=== PATIENT | male | born 1950 | race Caucasian/White ===

== ENCOUNTER 2024-08-29 11:17 | Inpatient (IN) ==
--- NOTE | 2024-08-29 11:26 | Emergency Department Note ---
Impression & Plan Atrial flutter with rapid ventricular response, Chest pain ED Provider Note NAME: SAILAJA LAWTON AGE: 74 SEX: M : 1950 ARRIVES VIA: Ambulance INFORMANT: Patient ED PROVIDER(S): Hi Koroma DO CHIEF COMPLAINT: Chest pain HPI: Patient is a 74-year-old male who presents to the ER for chest pain. He notes he woke up this morning and just did not feel right. He felt a discomfort in his epigastric substernal region which felt like last time he needed to get a cardiac stent. He notes that he did fail a stress test several months ago. He went to his PCPs office and he was found to have an elevated heart rate and consequently was referred in. He denies any headache or change in vision. He does admit to some lightheadedness. No chest pressure pain currently. No dysuria, urgency, or frequency. No other exacerbating or remitting factors. ADDITIONAL HISTORY OBTAINED: Per HPI Chronic Medical/Social Conditions Affecting Care: Per HPI PAST MEDICAL HISTORY:See Below PAST SURGICAL HISTORY:See Below FAMILY HISTORY:See Below SOCIAL HISTORY:See Below HOME MEDICATIONS:See Below ALLERGIES:See Below VITALS:See Below PHYSICAL EXAMINATION: GENERAL: Sitting up in bed, alert, well appearing, well nourished, no distress, non-toxic EYE EXAM: normal conjunctiva. PERRL and EOM's grossly intact. OROPHARYNX: mucous membranes are moist NECK: supple, no nuchal rigidity, no adenopathy, non-tender LUNGS: Clear to auscultation. Normal chest wall mechanics HEART: Tachycardic, S1 normal and S2 normal ABDOMEN: abdomen soft, non-tender, normo-active bowel sounds, no masses, no rebound or guarding. UPPER EXTREMITIES: upper extremities are grossly normal. LOWER EXTREMITIES: Calves are equal bilateral NEURO EXAM: Normal sensorium, cranial nerves II-XII grossly intact, normal speech, no gross weakness of arms, no gross weakness of legs. MEDICAL DECISION MAKING: Patient is a 74-year-old male who presents ER for the above-stated complaint. IV was established and blood work was obtained. Labs show no significant leukocytosis or anemia. BMP along with LFTs bilirubin lipase is unremarkable. Initial troponin was negative. Patient was initially given 6 mg of IV adenosine as EKG. Be consistent with an SVT. It broke into what appeared to be a flutter after the adenosine and following this patient was given IV metoprolol for an elevated heart rate in the 150s. Heart rate trend down to the 100. Patient was given IV fluids. Discussed case with the hospitalist for further evaluation management treatment. Consults/Care Managements Discussions: Per [facility] Triage Nursing notes reviewed. Limited review of prior medical records performed Vital Signs: reviewed and remarkable for tachycardic Differential diagnosis: Cardiac ischemia, aortic dissection, pulmonary embolism, pneumothorax, pneumonia, pericarditis, myocarditis, esophageal rupture, GERD, cholecystitis, pancreatitis, musculoskeletal, as well as other pathologies. ER treatment provided: See below Diagnostics interpreted by me include EKG and cardiac monitoring as listed below: -Cardiac Monitoring: An order was placed for continuous cardiac monitoring. The monitor shows a rate of 155 with atrial tachycardia rhythm. -ECG: SVT rate of 155 Normal axis No PVCs QTc 488 EKG #2 A-fib rate of 107 Normal axis No PVCs QTc 427 -Laboratory studies:Interpreted by me as stated above in MDM and shown below. Imaging studies: Xrays: As interpreted by me: Portable AP upright 1 view of the chest shows no focal M-Trate CTs show: None Procedures: None Critical Care: I have personally spent 35 minutes of critical care time in the direct management of this patient. This includes bedside care, interpretation of diagnostic studies, and testing, discussion with consultants, patient, and family members, and other required patient management activities. This 35 minutes is in excess of all separately billable procedures. Past Med/Surg History Problem List (Updated 08/29/24 @ 17:25 by Hi Koroma DO) Chest pain (Acute) Atrial flutter with rapid ventricular response (Acute) Social History Smoking Status: Never smoker Hx Alcohol Use: Yes Hx Substance Use: No Preferred Language: Syriac Communication Ability: Effective Vacation Planner Required: No Beliefs That Will Affect Care: Baptist Baptist Beliefs: Scientologist Current Living Situation: Spouse Other Information That Helps Us Care for You: No Feels Safe at Home: Yes Safety Concerns: Feels Safe At This Time Assistive Devices: Glasses Allergies Allergies Allergy/AdvReac Type Severity Reaction Status Date / Time Penicillins Allergy Unknown rash Unverified 08/29/24 12:46 SYNTHETIC PENICILLIN Allergy Unknown rash Uncoded 08/29/24 12:46 Home Meds Home Medications Medication Instructions Recorded Confirmed amlodipine 5 mg tablet 5 mg PO BID 08/29/24 08/29/24 aspirin 81 mg chewable tablet 81 mg PO DIRECTED 08/29/24 08/29/24 atorvastatin 10 mg tablet 10 mg PO DAILY 08/29/24 08/29/24 coenzyme Q10 30 mg capsule 30 mg PO DAILY 08/29/24 08/29/24 doxazosin 2 mg tablet 2 mg PO QAM 08/29/24 08/29/24 ezetimibe 10 mg tablet 10 mg PO HS 08/29/24 08/29/24 losartan 25 mg tablet 25 mg PO DAILY 08/29/24 08/29/24 multivitamin 1 tab PO QAM 08/29/24 08/29/24 Results & Data (ED) Vital Signs Vital Signs - 24 hr 08/29/24 11:30 08/29/24 11:43 08/29/24 11:45 Temperature 36.7 C Temperature Source Oral Pulse Rate 155 H 154 H 155 H Pulse Rate [Apical] Pulse Rate from SpO2 Sensor 154 H Pulse Rhythm Regular Respiratory Rate 18 24 Blood Pressure 131/102 H Blood Pressure [Right Arm] Blood Pressure Mean 111 Blood Pressure Mean [Right Arm] Pulse Oximetry 96 97 Oxygen Delivery Method Room Air Room Air Sepsis New/Unexplained Change in Mental Status No Sepsis Action Taken by Nursing No Action Required 08/29/24 12:05 08/29/24 12:05 08/29/24 12:18 Temperature Temperature Source Pulse Rate 152 H Pulse Rate [Apical] Pulse Rate from SpO2 Sensor 152 H Pulse Rhythm Respiratory Rate 11 L Blood Pressure Blood Pressure [Right Arm] Blood Pressure Mean Blood Pressure Mean [Right Arm] Pulse Oximetry 96 Oxygen Delivery Method Room Air Room Air Sepsis New/Unexplained Change in Mental Status Sepsis Action Taken by Nursing 08/29/24 12:20 08/29/24 12:25 08/29/24 12:26 Temperature Temperature Source Pulse Rate 155 H Pulse Rate [Apical] 102 H Pulse Rate from SpO2 Sensor Pulse Rhythm Respiratory Rate 15 Blood Pressure 132/92 118/76 Blood Pressure [Right Arm] 118/76 Blood Pressure Mean 82 Blood Pressure Mean [Right Arm] 90 Pulse Oximetry 94 Oxygen Delivery Method Room Air Sepsis New/Unexplained Change in Mental Status Sepsis Action Taken by Nursing 08/29/24 12:30 08/29/24 12:32 08/29/24 12:33 Temperature Temperature Source Pulse Rate 109 H 104 H Pulse Rate [Apical] Pulse Rate from SpO2 Sensor 53 L Pulse Rhythm Respiratory Rate 13 Blood Pressure 127/70 Blood Pressure [Right Arm] Blood Pressure Mean 95 Blood Pressure Mean [Right Arm] Pulse Oximetry 96 Oxygen Delivery Method Sepsis New/Unexplained Change in Mental Status Sepsis Action Taken by Nursing 08/29/24 12:42 08/29/24 12:42 08/29/24 12:54 Temperature Temperature Source Pulse Rate 79 79 79 Pulse Rate [Apical] Pulse Rate from SpO2 Sensor 80 75 Pulse Rhythm Respiratory Rate 18 22 Blood Pressure Blood Pressure [Right Arm] Blood Pressure Mean Blood Pressure Mean [Right Arm] Pulse Oximetry 95 96 Oxygen Delivery Method Sepsis New/Unexplained Change in Mental Status Sepsis Action Taken by Nursing 08/29/24 12:57 08/29/24 13:00 08/29/24 13:15 Temperature Temperature Source Pulse Rate 79 Pulse Rate [Apical] Pulse Rate from SpO2 Sensor 77 65 Pulse Rhythm Respiratory Rate 23 Blood Pressure 141/87 H Blood Pressure [Right Arm] Blood Pressure Mean 100 Blood Pressure Mean [Right Arm] Pulse Oximetry 96 95 Oxygen Delivery Method Sepsis New/Unexplained Change in Mental Status Sepsis Action Taken by Nursing 08/29/24 13:26 08/29/24 13:31 Temperature Temperature Source Pulse Rate Pulse Rate [Apical] Pulse Rate from SpO2 Sensor 74 Pulse Rhythm Respiratory Rate Blood Pressure 118/89 Blood Pressure [Right Arm] Blood Pressure Mean 102 Blood Pressure Mean [Right Arm] Pulse Oximetry 96 Oxygen Delivery Method Sepsis New/Unexplained Change in Mental Status Sepsis Action Taken by Nursing Laboratory Data 08/29/24 11:40 08/29/24 11:40 Lab Results 08/29/24 Range/Units 11:40 WBC 6.16 (4.8-10.8) K/ul RBC 4.41 L (4.70-6.10) M/uL Hgb 14.0 (14.0-18.0) g/dl Hct 41.8 L (42.0-52.0) % MCV 94.8 (80.0-100.0) fL MCH 31.7 (25.0-34.0) pg MCHC 33.5 (32.0-36.0) g/dL RDW Std Deviation 45.8 (36.4-46.3) fL RDW Coeff of Dalia 13.1 (11.5-14.5) % Plt Count 174 (130-400) K/uL MPV 9.6 (9.4-12.4) fL Immature Gran % (Auto) 0.2 % Neut % (Auto) 66.2 % Lymph % (Auto) 18.7 % Rankin % (Auto) 9.9 % Eos % (Auto) 4.4 % Baso % (Auto) 0.6 % Neut # (Auto) 4.08 (1.40-6.50) K/uL Lymph # (Auto) 1.15 L (1.20-3.40) K/uL Rankin # (Auto) 0.61 H (0.11-0.59) K/uL Eos # (Auto) 0.27 (0.00-0.50) K/uL Baso # (Auto) 0.04 (0.00-0.20) K/uL Immature Gran # (Auto) 0.01 (0.01-0.20) K/uL Sodium 140 (136-145) mmol/L Potassium 4.7 (3.5-5.1) mmol/L Chloride 106 (98-107) mmol/L Carbon Dioxide 30 (21-32) mmol/L Anion Gap 4 (3-11) BUN 23 (6-23) mg/dl Creatinine 1.29 (0.6-1.4) mg/dl Est Cr Clr Drug Dosing 58.0 ml/min eGFR 58.18 BUN/Creatinine Ratio 17.8 (10-20) Glucose 103 H (70-99(Fasting)) mg/dl Calcium 8.7 (8.6-10.3) mg/dl Total Bilirubin 0.7 (0.2-1.0) mg/dl AST 23 (13-39) U/L ALT 25 (7-52) U/L Alkaline Phosphatase 65 (34-104) U/L Troponin I High Sens 15.3 (0-20) pg/ml Total Protein 6.6 (6.0-8.3) gm/dl Albumin 4.0 (3.4-5.0) gm/dl Globulin 2.6 (2.5-4.0) gm/dl Albumin/Globulin Ratio 1.5 (0.9-2) Lipase 17 (11-82) U/L Administered Medications Heparin Sodium/Dextrose (Heparin Sodium/Dextrose) 25,000 units in 500 mls @ 20 mls/hr IV .Q24H [place]; Protocol Stop: 09/28/24 13:44 Last Admin: 08/29/24 15:06 Dose: 1,000 units/hr, 20 mls/hr Documented By: PALLAVI Co-signed By: LI Metoprolol Tartrate (Metoprolol Tartrate 1 Mg/Ml Vial) 5 mg IV Q5M PRN PRN Reason: Tachycardia Stop: 09/28/24 12:11 Last Admin: 08/29/24 12:20 Dose: 5 mg Documented By: PALLAVI Metoprolol Tartrate (Metoprolol Tartrate 25 Mg Tab) 12.5 mg PO Q6H [place] Stop: 09/28/24 13:29 Last Admin: 08/29/24 14:01 Dose: 12.5 mg Documented By: PALLAVI Discontinued Medications Adenosine (Adenosine Iv Soln 3 Mg/Ml 2 Ml Vial) Confirm Administered Dose 6 mg IV .STK-MED ONE Stop: 08/29/24 11:48 Last Admin: 08/29/24 12:06 Dose: 6 mg Documented By: PALLAVI Aspirin (Aspirin Chew 324 Mg) 324 mg PO NOW STA Stop: 08/29/24 11:27 Last Admin: 08/29/24 11:34 Dose: 324 mg Documented By: PALLAVI Sodium Chloride (Nss) 1,000 mls @ 999 mls/hr IV .Q1H1M ONE Stop: 08/29/24 12:24 Last Infusion: 08/29/24 12:41 Dose: Infused Documented By: Admin: 08/29/24 11:40 Dose: 999 mls/hr Documented By: PALLAVI Imaging Data Radiologist's Impression: Chest X-Ray 08/29/24 11:24 XR chest 1V portable CLINICAL HISTORY: Chest pain, nonspecific TECHNIQUE: Single frontal radiograph of the chest was obtained. Comparison: None available at the time of this dictation. FINDINGS: No lines and tubes are seen. Cardiomegaly is noted. The aortic arch is calcified. The lungs are clear. No evidence of pleural effusion or pneumothorax. IMPRESSION: No acute chest disease. ACT 112: Negative or not required by law. Electronically signed by: Obie Small M.D. 08/29/2024 11:57 AM Discharge Plan Visit Data Chief Complaint: Cardiac Assessment Stated Complaint: CARDIAC ASSESSMENT ED Provider: Hi Koroma Discharge Problem: Atrial flutter with rapid ventricular response, Chest pain Patient Disposition: Admitted As Inpatient Discharge Instructions Interventions: ED Discharge Assessment Last Done: 08/29/24 15:21 Discharge Problem: Chest pain Qualifiers: Chest pain type: unspecified Qualified Code(s): R07.9 - Chest pain, unspecified
[2024-08-29] MEDS: ASPIRIN CHEW 324 MG PO STA (11:34)
[2024-08-29] MEDS: SODIUM CHLORIDE 0.9% 1,000 ML IV ONE (11:40)
--- NOTE | 2024-08-29 12:00 | XRay Report ---
XR chest 1V portable CLINICAL HISTORY: Chest pain, nonspecific TECHNIQUE: Single frontal radiograph of the chest was obtained. Comparison: None available at the time of this dictation. FINDINGS: No lines and tubes are seen. Cardiomegaly is noted. The aortic arch is calcified. The lungs are clear . No evidence of pleural effusion or pneumothorax. IMPRESSION: No acute chest disease. ACT 112: Negative or not required by law. Electronically signed by: Obie Small M.D. 08/29/2024 11:57 AM
[2024-08-29 12:03] LABS: Basophils # (auto) 0.04 K/uL (0.00-0.20); Basophils % (auto) 0.6 %; Eosinophils # (auto) 0.27 K/uL (0.00-0.50); Eosinophils % (auto) 4.4 %; Hematocrit (blood only) 41.8 % (42.0-52.0); Immature Granulocytes # (auto) 0.01 K/uL (0.01-0.20); Immature Granulocytes % (auto) 0.2 %; Lymphocytes # (auto) 1.15 K/uL (1.20-3.40); Lymphocytes % (auto) 18.7 %; Mean Corpuscular Hemoglobin 31.7 pg (25.0-34.0); Mean Corpuscular Hgb Conc 33.5 g/dL (32.0-36.0); Mean Corpuscular Volume 94.8 fL (80.0-100.0); Mean Platelet Volume 9.6 fL (9.4-12.4); Monocytes # (auto) 0.61 K/uL (0.11-0.59); Monocytes % (auto) 9.9 %; Neutrophils # (auto) 4.08 K/uL (1.40-6.50); Neutrophils % (auto) 66.2 %; Platelet Count 174 K/uL (130-400); RDW Coefficient of Variation 13.1 % (11.5-14.5); RDW Standard Deviation 45.8 fL (36.4-46.3); Red Blood Count 4.41 M/uL (4.70-6.10); White Blood Count 6.16 K/ul (4.8-10.8)
[2024-08-29] MEDS: ADENOSINE IV SOLN 3 MG/ML 2 ML VIAL IV ONE (12:06)
[2024-08-29] MEDS: METOPROLOL TARTRATE 1 MG/ML VIAL IV PRN (12:20)
[2024-08-29 12:23] LABS: Albumin Globulin Ratio 1.5 (0.9-2); BUN Creatinine Ratio 17.8 (10-20); Bilirubin,Total 0.7 mg/dl (0.2-1.0); Calcium 8.7 mg/dl (8.6-10.3); Globulin 2.6 gm/dl (2.5-4.0); Potassium 4.7 mmol/L (3.5-5.1); Total Protein 6.6 gm/dl (6.0-8.3)
[2024-08-29 12:27] LABS: Troponin I High Sensitivity 15.3 pg/ml (0-20)
--- NOTE | 2024-08-29 12:36 | History & Physical Report ---
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 Atrial Flutter with RVR: -Outpatient EKG noted atrial flutter with 2-1 block. Patient transported to ED via EMS from PCP's office. -Initially was in SVT upon arrival to the ED with HR in the 150s. Received 6mg IV adenosine + 5mg IV Lopressor. -HR was still fluctuating in the 70s-120s. Was subsequently found to be in atrial flutter with RVR s/p adenosine + Lopressor. -Cardiology consulted [Dr. Hudson notified via TT]. IV heparin initiated. Continue po Lopressor 12.5mg Q6H pending cardiology evaluation. -Initial trop negative. Repeat trop 23.4; will continue to trend trop Q6H x 3. Daily EKG x 2. EKG with chest pain PRN. Will check resting echo. IN in 2011 S/P LAD Stenting: -Patient follows with [facility] [Becca/Gaurav]. -Had nuclear stress testing in November 2023 which showed the old area of IN and had mild to moderate reversible ischemia. -Cardiology was initially considering a cardiac cath at that time but the patient was asymptomatic therefore it was not completed. -Echo from 11/2023: EF=55-59%, mildly increased concentric LV wall thickness, posterior + lateral hypokinesis, mild to moderate mitral regurgitation. Other Chronic Medical Conditions: * HLD/CAD - Continue statin, ezetimibe and ASA 81mg (ASA patient takes every other day). * CKD Stage IIIa - Cr stable, baseline Cr ~1.2-1.5 per chart review. HTN - Hold home antihypertensives for now ISO above. DVT Prophylaxis: IV heparin as per above. Code Status: FULL CODE PCP: Maia Oliva DO Disposition: Admit to PCU/Telemetry for further inpatient evaluation and management. Patient seen in collaboration with Dr. Mackenzie. Please see addendum. I spent a total of 50 minutes coordinating, documenting, and providing care for this patient excluding time spent in the performance of separately billed services. This included personally reviewing all current laboratories and imaging studies, medical reconciliation, outpatient chart review and discussion with specialists. This chart was completed in part utilizing Speech Voice Recognition Software. Grammatical errors, random word insertions, pronoun errors, and incomplete sentences are an occasional consequence of this system due to software limitations, ambient noise, and hardware issues. Any formal questions or concerns about the content, text, or information contained within the body of this dictation should be directly addressed to the provider for clarification. 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 History obtained from the patient, family at bedside and associated chart review. Patient seen at bedside in the ED with Dr. Mackenzie. Patient was seeing his PCP [Dr. Maia Oliva at [facility]] earlier today and noted complaints of shakiness plus chest pressure which both started this morning. Outpatient EKG was concerning for atrial flutter with 2-1 block, HR 159bpm. Given patient's history of CAD and prior IN in 2011 with LAD stenting, he was sent to ED via EMS for further cardiac evaluation as his symptoms were comparable to those which he experienced with his prior IN. Patient was initially found to be in SVT with HR in the 150s upon presentation to the ED. He is now s/p 6 mg IV adenosine, 324mg po aspirin, 5mg IV Lopressor and 1L NSS. Patient without any chest pressure or shakiness when we saw him in the ED. Telemetry revealed atrial flutter with fluctuating HR between the 70s to 120s throughout our conversation. Allergies Allergy/AdvReac Type Severity Reaction Status Date / Time Penicillins Allergy Unknown rash Unverified 08/29/24 12:46 SYNTHETIC PENICILLIN Allergy Unknown rash Uncoded 08/29/24 12:46 Home Medications Medication Instructions Recorded Confirmed Type amlodipine 5 mg tablet 5 mg PO BID 08/29/24 08/29/24 History aspirin 81 mg chewable tablet 81 mg PO DIRECTED 08/29/24 08/29/24 History atorvastatin 10 mg tablet 10 mg PO DAILY 08/29/24 08/29/24 History coenzyme Q10 30 mg capsule 30 mg PO DAILY 08/29/24 08/29/24 History doxazosin 2 mg tablet 2 mg PO QAM 08/29/24 08/29/24 History ezetimibe 10 mg tablet 10 mg PO HS 08/29/24 08/29/24 History losartan 25 mg tablet 25 mg PO DAILY 08/29/24 08/29/24 History multivitamin 1 tab PO QAM 08/29/24 08/29/24 History Past Med/Surg History Problem List (Updated 08/29/24 @ 17:25 by Hi Koroma DO) Chest pain (Acute) Atrial flutter with rapid ventricular response (Acute) Social History Smoking Status: Never smoker Hx Alcohol Use: Yes Hx Substance Use: No Preferred Language: Afghan Communication Ability: Effective Hemstitcher Required: No Beliefs That Will Affect Care: Christian Christian Beliefs: Methodist Current Living Situation: Spouse Other Information That Helps Us Care for You: No Feels Safe at Home: Yes Safety Concerns: Feels Safe At This Time Assistive Devices: Glasses Review of Systems 2 Review of Systems: At least ten systems reviewed and negative, except as noted in the HPI. Physical Exam Physical Exam: Please refer to Dr. Mackenzie' addendum for physical examination findings. Results & Data Results & Data Vital Signs (Past 12 Hours) Vital Signs Temp Pulse Pulse Resp BP BP Pulse Ox 08/29/24 12:32 109 H 08/29/24 12:25 102 H 15 118/76 94 08/29/24 12:20 155 H 132/92 08/29/24 12:05 08/29/24 12:05 08/29/24 11:45 155 H 24 97 08/29/24 11:43 154 H 08/29/24 11:30 36.7 C 155 H 18 131/102 H 96 O2 Del Method 08/29/24 12:32 08/29/24 12:25 Room Air 08/29/24 12:20 08/29/24 12:05 Room Air 08/29/24 12:05 Room Air 08/29/24 11:45 Room Air 08/29/24 11:43 08/29/24 11:30 Room Air Laboratory Results Short CBC 08/29/24 Range/Units 11:40 WBC 6.16 (4.8-10.8) K/ul Hgb 14.0 (14.0-18.0) g/dl Hct 41.8 L (42.0-52.0) % Plt Count 174 (130-400) K/uL BMP 08/29/24 11:40 Sodium 140 Potassium 4.7 Chloride 106 Carbon Dioxide 30 BUN 23 Creatinine 1.29 Glucose 103 H Calcium 8.7 Liver Function 08/29/24 Range/Units 11:40 Total Bilirubin 0.7 (0.2-1.0) mg/dl AST 23 (13-39) U/L ALT 25 (7-52) U/L Alkaline Phosphatase 65 (34-104) U/L Albumin 4.0 (3.4-5.0) gm/dl Diagnostic Findings Chest X-Ray 08/29/24 11:24 XR chest 1V portable CLINICAL HISTORY: Chest pain, nonspecific TECHNIQUE: Single frontal radiograph of the chest was obtained. Comparison: None available at the time of this dictation. FINDINGS: No lines and tubes are seen. Cardiomegaly is noted. The aortic arch is calcified. The lungs are clear. No evidence of pleural effusion or pneumothorax. IMPRESSION: No acute chest disease. ACT 112: Negative or not required by law. Electronically signed by: Obie Small M.D. 08/29/2024 11:57 AM Medications Administered Metoprolol Tartrate (Metoprolol Tartrate 1 Mg/Ml Vial) 5 mg IV Q5M PRN PRN Reason: Tachycardia Stop: 09/28/24 12:11 Last Admin: 08/29/24 12:20 Dose: 5 mg Documented By: PALLAVI Discontinued Medications Adenosine (Adenosine Iv Soln 3 Mg/Ml 2 Ml Vial) Confirm Administered Dose 6 mg IV .STK-MED ONE Stop: 08/29/24 11:48 Last Admin: 08/29/24 12:06 Dose: 6 mg Documented By: PALLAVI Aspirin (Aspirin Chew 324 Mg) 324 mg PO NOW STA Stop: 08/29/24 11:27 Last Admin: 08/29/24 11:34 Dose: 324 mg Documented By: PALLAVI Sodium Chloride (Nss) 1,000 mls @ 999 mls/hr IV .Q1H1M ONE Stop: 08/29/24 12:24 Last Admin: 08/29/24 11:40 Dose: 999 mls/hr Documented By: PALLAVI Code Status & VTE Plan Code Status FULL CODE Supervising Physician Co-Signing Physician Notes I have seen and discussed the case with the collaborating advanced practitioner. I agree with the above H&P. I have reviewed and confirmed the patients medical history, the findings on physical examination, and the patients diagnosis and treatment plan with Sri MEDINA and agree with the information documented. In short, Mr. Miner presented to ED with SVT and found to be in a flutter after adenosine. OP ekg also noted a flutter 2:1 Patient administered adenosine and lopressor IV GENERAL APPEARANCE: AxOx4, generally well-appearing M HEENT: NC, AT. MMM. EOMI, clear conjunctiva, oropharynx clear. NECK: Supple without lymphadenopathy. No stiffness or restricted ROM. HEART: irregular, tachycardic LUNGS: CTAB, moving air well. No crackles or wheezes are heard. ABDOMEN: Soft, nontender, nondistended with good bowel sounds heard. BACK: No CVAT, no obvious deformity. EXTREMITIES: Without cyanosis, clubbing or edema. NEUROLOGICAL: Grossly nonfocal. Alert and oriented, moving all 4 extremities. CN not formally tested but appear grossly intact Skin: Warm and dry without any rash. #A flutter RVR #SVT s/p adenosine s/p adenosine with rhythm underlying noted to be a flutter [id number] 3-4 Start Heparin Metoprolol 12.5mg q6 Tele Consult cardiology: hx of BB intolerance 2/2 bradycardia reported echo I spent a total of 15 minutes coordinating, documenting, and providing care for this patient excluding time spent in the performance of separately billed services. All of the aforementioned completed outside of collaborating with the assigned advanced practitioner for a full treatment plan. I have reviewed the advanced practitioner's documentation, and I agree with, and take responsibility for the plan of care
[2024-08-29] MEDS ORDERED: Heparin IV Adult Wt-Based Low-Dose *NO* INITIAL Bolus Protocol IV SCH (13:25)
[2024-08-29] MEDS: METOPROLOL TARTRATE 25 MG TAB PO SCH (14:01)
[2024-08-29] MEDS: HEPARIN SODIUM/DEXTROSE 25,000 UNITS/500 ML BAG IV SCH (15:06)
--- NOTE | 2024-08-29 15:19 | Electrocardiogram Report ---
Test Reason : Blood Pressure : */* mmHG Vent. Rate : 155 BPM Atrial Rate : * BPM P-R Int : * ms QRS Dur : 80 ms QT Int : 304 ms P-R-T Axes : * 31 28 degrees QTcB Int : 488 ms Sinus tachycardia vs Supraventricular tachycardia Otherwise normal ECG When compared with ECG of 17-Aug-2000 14:26, Vent. rate has increased by [address] depression has replaced ST elevation in Anterior leads Inverted T waves have replaced nonspecific T wave abnormality in Inferior leads Confirmed by Shiva Armstrong ([id number]) on 08/29/2024 3:19:04 PM Referred By: Confirmed By: Shiva Armstrong
--- NOTE | 2024-08-29 15:26 | Electrocardiogram Report ---
Test Reason : Blood Pressure : */* mmHG Vent. Rate : 107 BPM Atrial Rate : 156 BPM P-R Int : * ms QRS Dur : 88 ms QT Int : 320 ms P-R-T Axes : * 47 33 degrees QTcB Int : 427 ms Probable Sinus rhythm with frequent , and consecutive Premature atrial complexes Otherwise normal ECG When compared with ECG of 29-Aug-2024 11:32, (unconfirmed) Significant changes have occurred Confirmed by Shiva Armstrong ([id number]) on 08/29/2024 3:25:37 PM Referred By: REFERRED SELF Confirmed By: Shiva Armstrong
[2024-08-29] MEDS ORDERED: ACETAMINOPHEN 325 MG TAB PO PRN (16:13)
[2024-08-29] MEDS ORDERED: POLYETHYLENE (MIRALAX) 17 GM PACK PO PRN (16:13)
[2024-08-29] MEDS ORDERED: MAGNESIUM HYDROXIDE SUSP 30 ML UDC PO PRN (16:13)
--- OUTSIDE RECORDS SUMMARY | 2024-08-29 16:45 | External Medical Summary ---
Author Name Unknown Address Unknown Organization [id number]:[facility] [place] [address] [place] [address] Laboratory Report Ordering Provider Test Date Status OKSANA ANDRESDELFINOGUEVARA 08/14/2024 10:36:18 Final Observation Date Value Abnormality Reference (Units ) Status Triglyceride 08/14/2024 10:36:18 38 <=174 ( mg/dL) Final Triglyceride Reference Range s (mg/dL):
<150 Acceptable
150-174 Borderline high
175-499 High
>=500 Very high Cholesterol 08/14/2024 10:36:18 133 <200 (mg /dL) Final Total Cholesterol Reference Ranges (mg/dL):
<200 Desirable
200-239 Borderline high
>=240 High HDL 08/14/2024 10:36:18 51 >39 (mg/dL ) Final HDL Cholesterol Reference Ra nges (mg/dL):
>=60 High (Desirable)
<50 Low (Undesirable) For Females
<40 Low (Undesirable) For Males NON-HDL CHOLESTEROL 08/14/2024 10:36:18 82 <=159 (mg/dL) Final Non-HDL Cholesterol Referenc e Range (mg/dL):
<100 Target level for high risk ASCVD patient
<130 Optimal for general population
130-159 Near optimal for general population
160-189 Borderline High
190-219 High
>=220 Very High LDL, (calculated) 08/14/2024 10:36:18 74 <= 129 (mg/dL) Final LDL Cholesterol Reference Ra nges (mg/dL):
<70 Target level for high risk ASCVD patient
<100 Optimal for general population
100-129 Near optimal for general population
130-159 Borderline high
160-189 High
>=190 Very high Performing Location [facility] [place] [address] [facility] [address]
--- OUTSIDE RECORDS SUMMARY | 2024-08-29 16:45 | External Medical Summary | Summary of Care ---
Author Name Unknown Organization [facility] Address [address] [facility] [place] [address] Phone [phone] Care Team Providers Care Advertising Assistant Manager Name Role Phone Maia Oliva DO Primary Care Provider + [phone] Reason for Visit * Reason Comments Outpatient Testing Encounter Details Date Type Department Care Team (Late st Contact Info) Description 08/14/2024 10:30 AM EST [facility] [address] [facility] [place] [phone] [facility] [address] [facility] [place] [address] Stage 3a chronic kidney disease (HCC); Dyslipidemia, goal LDL below 70 Allergies Active Allergy Reactions Criticality Noted Date Comments Neomycin-Polymyxin B Gu 01/15/2013 Synthetic antibiotic- pt can not list name at this time Statins Muscle pain 09/10/2018 documented as of this encounter (statuses as of 08/14/2024) Medications MULTIVITAMINS PO TABS 1 tablet daily Activ e nitroglycerin (NITROSTAT) 0.4 MG SUBLIndications: CVD (arteriosclerotic cardiovascular disease),Old myocardial infarct One tablet under tongue if needed for chest pain. May repeat 3 times. If chest pain continues, call [phone] Tab 3 02/23/20 16 Active Additional Information Patient not taking.Reported on 02/19/2024 Coenzyme Q10 100 MG Tablet 200mg daily 02/23/20 16 Active aspirin 81 MG chewable tabletIndications: ASCVD (arteriosclerotic cardiovascular disease),S/P angioplasty with stent,Old myocardial infarct Take 1 Tab by mouth daily. With food. 1 Tab 11/21/19 19 Active Additional Information Patient taking differently:81 mg OralMWF, With food., Reported on 08/13/2024 Adult Blood Pressure Cuff Lg KitIndications:Hyp ertensive kidney disease with stage 3a chronic kidney disease (HCC) Use blood pressure cuff daily. 1 Kit 05/28/20 20 Active Albuterol Sulfate HFA 108 (90 Base) MCG/ACT Inhalation Aerosol SolutionIndication s:Bronchitis, complicated Inhale by mouth 2 Puffs every 6 hours as needed for Wheezing. 18 g 1 06/16/20 22 Active Atorvastatin Calcium 10 MG Oral Tablet (Lipitor)Indicatio ns:Dyslipidemia, goal LDL below 70 Take 1 Tablet by mouth in the morning. 90 Tablet 5 06/27/2024 2:09 PM EDT 09/06/19 24 Active Additional Information Patient taking differently:10 mg Oral Daily(AM), Takes at night, Reported on 08/13/2024 Pain-Off 250-250-65 MG Oral Tablet (Aspirin-Acetamino phen-Caffeine 250-250-65 mg per tab) as needed. Active NATURAL SUPPLEMENT Gel Beets A ctive Losartan Potassium 25 MG Oral Tablet (Cozaar)Indication s:Hypertensive kidney disease with stage 3a chronic kidney disease (HCC) Take 1 Tablet by mouth in the morning and 1 Tablet before bedtime. 180 Tablet 3 05/21/2024 1:32 PM EDT 09/27/19 24 Active Doxazosin Mesylate 2 MG Oral Tablet (Cardura)Jaketio ns:BPH with obstruction/lower urinary tract symptoms Take 1 Tablet by mouth in the morning. 100 Tablet 2 07/12/2024 2:15 PM EST 11/15/19 24 Active Ezetimibe 10 MG Oral Tablet (Zetia)Indications :Dyslipidemia, goal LDL below 70 Take 1 Tablet by mouth at bedtime. 90 Tablet 3 05/21/2024 1:32 PM EDT 02/13/20 24 Active documented as of this encounter (statuses as of 08/14/2024) Active Problems Problem Noted Date Diagnosed Date Asymptomatic bilateral carotid artery stenosis 0 04/30/2024 Dyslipidemia, goal LDL below 100 04/30/2024 Stage 3a chronic kidney disease 04/30/2024 Carotid occlusion, left 04/30/2024 Sacroiliitis, not elsewhere classified 2 Hx of nonmelanoma skin cancer 08/10/2020 Overview (08/11/2020): basal cell carcinoma (L malar cheek 12/2018, R shoulder 07/2020)) Hypertensive kidney disease with stage 3a chronic kidney disease 07/05/2020 Overview: Per CKD protocol Dyslipidemia, goal LDL below 70 10/16/2019 Coronary artery disease invo lving [place] coronary artery of [place] heart without angina pectoris 11/20/2018 Sciatica of right side 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 09/07/2016 Lumbar paraspinal muscle spasm 09/07/2016 Chronic pain syndrome 09/07/2016 Hypertension goal BP (blood pressure) < 130/80 1 09/27/2015 MEDICATION USE AGREEMENT 08/07/2014 Overview (08/07/2014): 08/07/14 Chronic back pain 03/31/2013 Severe obesity with body mas s index (BMI) of 35.0 to 39.9 with serious comorbidity 01/07/2013 Overview (06/12/2018): bmi= 37.60 01/07/13 ICD-10 update of inactive diagnosis S/P angioplasty with stent 01/07/2013 Old myocardial infarct documented as of this encounter (statuses as of 08/14/2024) Resolved Problems Problem Noted Date Diagnosed Date Resolved Date Chronic kidney disease, stage 3a 01/04/2021 06/16/2022 Overview: Per CKD protocol Hypertensive kidney disease with chronic kidney disease stage III 11/22/2018 07/08/2020 Overview: Per CKD protocol Kidney disease, chronic, sta ge III (GFR 30-59 ml/min) 09/04/2016 12/04/2018 Overview: Per CKD protocol #1 Body mass index 37.0-37.9, adult 11/01/2015 07/04/2018 Overview (11/01/2015): bmi= 37.53 11/01/15 Screening for prostate cancer 10/25/2015 08/09/2017 Encounter for long-term (cur rent) use of medications 08/07/2014 07/04/2018 Overview (06/19/2017): ICD-10 update of inactive term Severe obesity with body mas s index (BMI) of 35.0 to 39.9 with serious comorbidity 04/20/2014 Overview (06/12/2018): bmi= 38.37 04/20/14 ICD-10 update of inactive diagnosis Severe obesity with body mas s index (BMI) of 35.0 to 39.9 with serious comorbidity 10/13/2013 Overview (06/12/2018): BMI= 38.29 10/13/13 ICD-10 update of inactive diagnosis Hyperglycemia 01/07/2013 04/20/2014 Special screening for malign ant neoplasm of prostate 01/07/2013 07/04/2018 Need for shingles vaccine 01/07/2013 ASCVD (arteriosclerotic card iovascular disease) 07/04/2018 Allergic rhinitis 07/04/2018 Kidney disease, chronic, sta ge III (moderate, EGFR 30-59 ml/min) 10/25/2015 Dyslipidemia, goal LDL below 70 07/04/2018 documented as of this encounter (statuses as of 08/14/2024) Immunizations Name Administration Dates Next Due COVID-19 mRNA, LNP-s, No Pre serve, 2-Dose Series (Moderna) 10/23/2020,09/28/2020 COVID-19, MRNA-LNP, PF, 30 M CG/0.3 mL, 12 YRS AND ABOVE, IM (PFIZER-Comirnat) 06/04/2023,08/07/2022 COVID-19, mRNA, LNP-s, PF, B ooster, 100mcg/0.5mg (Moderna) 06/22/2021 Pneumococcal Conjugate Vacc, 13 Valent (Prevnar) 08/14/2017 Pneumococcal Conjugate Vaccine, 20-valent (Prevn ar20) 10/24/2023 Pneumococcal Polysaccharide PPV23 (Pneumovax) ,10/13/2013 RSV Vac., Recomb, Adjuvant, PF,0.5 Ml (Arexvy) 0 10/24/2023 Season Influenza, Quad, PF, Adjuvanted, 65+ Yrs, IM (FLUAD) 06/04/2023 Seasonal Influenza, High Dos e, Trivalent, PF, IM (Fluzone HD) 07/20/2020 Seasonal Influenza, MDCK, Trivalent, PF, (Flucel vax) 10/13/2013 TDAP (age 10 and older)(Boostrix) 03/21/2019 Varicella Zoster Vaccine (Adult) 05/25/2017 Zoster Vaccine Recombinant (Shingrix) 07/20/2020 ,04/02/2020 documented as of this encounter Social History Tobacco Use Types Packs/Day Years Used Date Smoking Tobacco: Never Passive Smoke Exposure: Past Smokeless Tobacco: Never Alcohol Use Standard Drinks/Week Comments Yes 0 (1 standard drink = 0.6 oz pur e alcohol) occ beer, occ whiskey PHQ-2 Answer Date Recorded PHQ Adult Total Score 0 08/13/2024 Hunger Vital Sign Answer Date Recorded Within the past 12 months, y ou worried that your food would run out before you got the money to buy more. Never true 08/06/20 23 Within the past 12 months, t he food you bought just didn't last and you didn't have money to get more. Never true 08/06/2023 Childcare Answer Date Recorded Do you feel overwhelmed with taking care of a child, family member or friend? No 08/06/2023 Does your family need help f inding childcare? (Household - for ages 0-17 years) Not on file 08/06/2023 Clothing Answer Date Recorded Have you been unable to get clothing when it was really needed? No 08/06/2023 Is your family able to get c lothes or diapers when needed? (Household - for ages 0-17 years) Not on file 08/06/2023 Personal Safety Answer Date Recorded Do you feel unsafe or have concerns for your saf ety? No 08/06/2023 Do you have concerns for you r family's safety? (Household - for ages 0-17 years) Not on file 08/06/2023 Utilities Answer Date Recorded Do you have trouble paying y our heating, water, or electric bill? No 08/06/2023 Is your family able to pay t he heat, water, or electric bill? (Household - for ages 0-17 years) Not on file 08/06/2023 Does your family have access to good internet? (Household - for ages 0-17 years) Not on file 08/06/2023 Employment Status Answer Date Recorded Are you unemployed or without regular income? No 08/06/2023 Does the household have a re gular source of income? (Household - for ages 0-17 years) Not on file 08/06/2023 Social Connections Answer Date Recorded How often do you feel lonely or isolated from th ose around you? Never 08/06/2023 Financial Resource Strain Answer Date R ecorded Do you have any trouble payi ng for your medications, or do you think you might in the future? No 08/06/2023 Does your family have troubl e paying for medicine? (Household - for ages 0-17 years) Not on file 08/06/2023 Transportation Needs Answer Date Record ed READ ONLY Do you have troubl e getting a ride to medical visits or work? Never True 08/06/2023 Does your family have a hard time getting a ride to doctors visits? (Household - for ages 0-17 years) Not on file 08/06/2023 Has lack of transportation k ept you from medical appointments, meetings, work, or from getting things needed for daily living? Check all that apply. (Adult - for ages 18 years and over) Not on file 08/06/2023 Do you (or your family) have trouble finding or paying for a ride (transportation)? (Household - for ages 0-17 years) Not on file 08/06/2023 Housing Stability Answer Date Recorded Do you currently live in a s helter or have no steady place to sleep at night? No 08/06/2023 READ ONLY Do you think you a re at risk of becoming homeless? No 08/06/2023 Does your family worry about paying for your home or becoming homeless? (Household - for ages 0-17 years) Not on file 1 10/07/2022 Are you homeless or worried that you might be in the future? (Adult - for ages 18 years and over) Not on file 3 Are you (or your family) casper eless or worried that you might be in the future? (Household - for ages 0-17 years) Not on file Food Insecurity Answer Date Recorded Do you need food for this week? No 08/06/2023 Are you able to get enough f ood for your family? (Household - for ages 0-17 years) Not on file 08/06/2023 Does your family need food t his week? (Household - for ages 0-17 years) Not on file 08/06/2023 Do you always have enough fo od for your family? (Household - for ages 0-17 years) Not on file 08/06/2023 Sex and Gender Information Value Date Recorded Sex Assigned at Not on file Legal Sex Male 5:57 AM EST Gender Identity Male 08/06/2023 11:48 AM EST Sexual Orientation Straight 10/04/2020 10 :21 AM EST Occupation Industry Job Start Date Job End Date unemployed since October, Not on file Not on file Not on file documented as of this encounter Plan of Treatment Upcoming Encounters Date Type Department Care Team (Late st Contact Info) Description 08/29/2024 11:50 AM EST Office Visit Family Practice, Chris Russell [address] [place] [phone] Maia Oliva DO [address] [place] [phone] 10/13/2024 11:00 AM EST Office Visit Cardiology, [facility] [address] [place] [address] [address] Meera Nolasco PA-C [address] [place] [address] 09/07/2025 10:00 AM EST Nurse Only Ancillary Department, Chris Hastings [address] [place] [phone] Chris Nurse Annual Wellness [address] [place] [phone] Pending Results Name Type Priority Associated Diagnoses Date /Time ALBUMIN / CREATININE RATIO, URINE Lab Routine Stage 3a chronic kidney disease (HCC) 08/14/2024 10:36 AM EST PHOSPHORUS Lab Routine Stage 3a chronic kidney disease (HCC) 08/14/2024 10:36 AM EST HGB Lab Routine Stage 3a chronic kidney disease (HCC) 08/14/2024 10:36 AM EST LIPID PANEL WITH DIRECT LDL IF TG IS HIGH Lab Routine Dyslipidemia, goal LDL below 70 08/14/2024 10:36 AM EST BASIC METABOLIC PANEL Lab Routine Dyslipidemia, goal LDL below 70 08/14/2024 10:36 AM EST HEPATIC FUNCTION PANEL Lab Routine Dyslipidemia, goal LDL below 70 08/14/2024 10:36 AM EST Scheduled Procedures Name Priority Associated Diagnoses Date/Ti me COLONOSCOPY FLEXIBLE PROXIMA L DIAGNOSTIC Recall History of colonic polyps Health Maintenance Due Date Last Done Comments Hepatitis C Screening 1968 Fecal Occult Blood Test 1995 Sigmoidoscopy 1995 COVID-19 Vaccine ( season) 2024 06/04/2023, 08/07/2022, 06/22/2021, Additional history exists Influenza Vaccine (FLU shot) (#1) 2024 06/04/2023, 07/20/2020, 10/13/2013 Albumin/Creatinine Ratio 08/16/2024 023, 05/09/2022, 09/15/2019, Additional history exists CKD PHOS USE SMARTSET 28910 08/16/202407/28, 04/07/2021, 09/15/2019, Additional history exists CKD HGB USE SMARTSET 42684 09/06/202409/06, 08/16/2023, 05/09/2022, Additional history exists GFR 09/07/2024 03/07/2024, 09/28, 08/16/2023, Additional history exists Adult Wellness Visit 08/13/2025 08/13/2024, 08/06/20 23 Depression Screening 08/13/2025 08/13/2024 Cologuard 09/20/2026 09/20/2023, 08/27, 09/10/2023, Additional history exists Colonoscopy 03/03/2029 03/03/2024, 03/2024, 10/24/2007 Colorectal Cancer Screening 03/03/2029 DTap/Tdap Vaccines (2 - Td or Tdap) 03/21/2029 03/21/2019 Zoster Vaccines Completed 07/20/2020, 02/2020, 05/25/2017 Pneumococcal Vaccine: 65+ Years Completed 10/24/2023, 03/21/2019, 08/14/2017, Additional history exists HPV (Gardasil) Vaccine Aged Out No lo nger eligible based on patient's age to complete this topic Hepatitis B Vaccine Aged Out No longe r eligible based on patient's age to complete this topic MENINGOCOCCAL (MENACTRA/MENVEO) Aged Out No longer eligible based on patient's age to complete this topic documented as of this encounter Medical Devices Not on filedocumented as of this encounter Visit Diagnoses Diagnosis Stage 3a chronic kidney disease (HCC) Dyslipidemia, goal LDL below 70 Other and unspecified hyperlipidemia documented in this encounter Care Teams Advertising Assistant Manager Relationship Specialty Start Date End Date Maia Oliva DO PCP - General Family Medicine 11/18/18 documented as of this encounter
--- OUTSIDE RECORDS SUMMARY | 2024-08-29 16:45 | External Medical Summary ---
Author Name Unknown Address Unknown Organization K01:[facility] - [address] [place] [address] Laboratory Report Ordering Provider Test Date Status CATRACHO ANDRES 08/14/2024 10:36:18 Final Observation Date Value Abnormality Reference (Units ) Status Phosphate 08/14/2024 10:36:18 3.8 2.5-4.8 (m g/dL) Final Performing Location LABORATORY [facility] - [address] [place] [address]
--- OUTSIDE RECORDS SUMMARY | 2024-08-29 16:45 | External Medical Summary ---
Author Name Unknown Address Unknown Organization [id number]:[facility] [place] [address] [place] [address] Laboratory Report Ordering Provider Test Date Status MCKENNAOKSANADELFINOGRAHAMKumar 08/14/2024 10:36:18 Final Normal: <30 mg/g creatinine< br/>High: 30-300 mg/g creatinine
Very High: >300 mg/g creatinine
Nephrotic: >2200 mg/g creatinine Observation Date Value Abnormality Reference (Units ) Status Albumin, Urine 08/14/2024 10:36:18 <1.20 (mg/dL) Final Creatinine, Urine 08/14/2024 10:36:18 126 (mg/dL) Final Albumin/Creatinine [Mass Ratio] in Urine 08/14/2024 10:36:18 <10 <30 (mg/g Creat) Final Performing Location [facility] [place] [facility] [address] [place] [address]
--- OUTSIDE RECORDS SUMMARY | 2024-08-29 16:45 | External Medical Summary ---
Author Name Unknown Address Unknown Organization [id number][place] [facility] [place] [facility] [address] [place] [address] Laboratory Report Ordering Provider Test Date Status CATRACHO ANDRES 08/14/2024 10:36:18 Final Observation Date Value Abnormality Reference (Units ) Status Albumin 08/14/2024 10:36:18 4.2 3.8-5.0 (g/dL) Final AST (Aspartate aminotransferase) 08/14/2024 10:36:18 36 10-50 (U/L) Final Alk Phos 08/14/2024 10:36:18 83 35-130 (U/L) Final ALT (Alanine aminotransferase) 08/14/2024 10:36:18 44 10-50 (U/L) Final Bilirubin, Total 08/14/2024 10:36:18 0.5 <=1.2 (mg/dL) Final Bilirubin, Direct 08/14/2024 10:36:18 0.2 0.0-0.3 (mg/dL) Final Protein 08/14/2024 10:36:18 6.2 6.0-8.3 (g/dL) Final Performing Location [place] [facility] [place] [facility] [address] [place] [address]
--- OUTSIDE RECORDS SUMMARY | 2024-08-29 16:46 | External Medical Summary | Summary of Care ---
Author Name Unknown Organization [facility] Address [address] [place] [address] Phone [phone] Care Team Providers Care Associate Financial Analyst Name Role Phone Maia Oliva DO Primary Care Provider + [phone] Encounter Details Date Type Department Care Team (Late st Contact Info) Description [facility] [address] [facility] [place] [phone] Maia Oliav DO [address] [facility] [place] [address] Allergies Active Allergy Reactions Criticality Noted Date Comments Neomycin-Polymyxin B Gu 01/15/2013 Synthetic antibiotic- pt can not list name at this time Statins Muscle pain 09/10/2018 documented as of this encounter (statuses as of 08/13/2024) Medications MULTIVITAMINS PO TABS 1 tablet daily Activ e nitroglycerin (NITROSTAT) 0.4 MG SUBLIndications: CVD (arteriosclerotic cardiovascular disease),Old myocardial infarct One tablet under tongue if needed for chest pain. May repeat 3 times. If chest pain continues, call [phone] Tab 3 02/23/20 16 Active Additional Information Patient not taking.Reported on 02/19/2024 Coenzyme Q10 100 MG Tablet 200mg daily 02/23/20 16 Active aspirin 81 MG chewable tabletIndications: ASCVD (arteriosclerotic cardiovascular disease),S/P angioplasty with stent,Old myocardial infarct Take 1 Tab by mouth daily. With food. 1 Tab 11/21/19 19 Active Additional Information Patient taking differently:81 mg OralMWF, With food., Reported on 02/19/2024 Adult Blood Pressure Cuff Lg KitIndications:Hyp ertensive [...] Oral Daily(AM), Takes at night, Reported on 02/19/2024 Pain-Off 250-250-65 MG Oral Tablet (Aspirin-Acetamino phen-Caffeine [...] Active Doxazosin Mesylate 2 MG Oral Tablet (Cardura)Indicatio ns:BPH with obstruction/lower urinary tract symptoms Take 1 Tablet by mouth in the morning. 100 Tablet 2 07/12/2024 2:15 PM EST 11/15/19 24 Active Ezetimibe 10 MG Oral Tablet (Zetia)Indications :Dyslipidemia, goal LDL below 70 Take 1 Tablet by mouth at bedtime. 90 Tablet 3 05/21/2024 1:32 PM EDT 02/13/20 24 Active documented as of this encounter (statuses as of 08/13/2024) Active Problems Problem Noted Date Diagnosed Date [...] 70 10/16/2019 Coronary artery disease invo lving [place] coronary artery of [place] heart without angina pectoris 11/20/2018 Sciatica of [...] as of this encounter (statuses as of 08/13/2024) Resolved Problems Problem Noted Date Diagnosed Date [...] as of this encounter (statuses as of 08/13/2024) Immunizations Name Administration Dates Next Due COVID-19 mRNA, LNP-s, No Pre serve, 2-Dose Series (Moderna) 10/23/2020,09/28/2020 COVID-19, MRNA-LNP, PF, 30 M CG/0.3 mL, 12 YRS AND ABOVE, IM (PFIZER-Comirnaty) 06/04/2023,08/07/2022 COVID-19, mRNA, LNP-s, PF, B ooster, [...] 18 years and over) Not on file Are you (or your family) casper eless [...] on file documented as of this encounter Miscellaneous Notes * Telephone Encounter - Summer Power OSA - 08/13/2024 9:59 AM EST Patient came to my desk stating he has an appointment with you on Aug.29 and he usually gets labsdone prior. Can you please place labs so that he may get them done prior to seeing you? documented in this encounter Plan of Treatment Upcoming Encounters Date Type Department Care Team (Late st Contact Info) Description 08/29/2024 11:50 AM EST Office Visit Family Chris Jones [address] [address] [phone] Maia Oliva DO [address] [place] [address] [address] 10/13/2024 11:00 AM EST Office Visit Cardiology, [facility] [address] [place] [address] Meera Nolasco PA-C [address] [place] [address] 09/07/2025 10:00 AM EST Nurse Only Ancillary Department, [address] [place] [address] [phone] Chris, Nurse Annual Wellness [address] [place] [address] Scheduled Procedures Name Priority Associated Diagnoses Date/Ti [...] Additional history exists CKD PHOS USE SMARTSET 87388 08/16/202407/28, 04/07/2021, 09/15/2019, Additional history exists CKD HGB USE SMARTSET 26932 09/06/202409/06, 08/16/2023, 05/09/2022, Additional history exists GFR 09/07/2024 03/07/2024, 09/28, 08/16/2023, Additional history exists Adult Wellness Visit 08/13/2025 08/13/2024, 08/06/20 23 Depression Screening 08/13/2025 08/13/2024 Cologuard 09/20/2026 09/20/2023, 08/27, 09/10/2023, Additional history exists Colonoscopy 03/03/2029 03/03/2024, 0703/2024, 10/24/2007 Colorectal Cancer Screening 03/03/2029 DTap/Tdap Vaccines (2 - Td or Tdap) 03/21/2029 03/21/2019 Zoster Vaccines Completed 07/20/2020, 08/0 02/2020, 05/25/2017 Pneumococcal Vaccine: 65+ Years Completed [...] Not on filedocumented as of this encounter Care Teams Associate Financial Analyst Relationship Specialty Start Date End Date Maia Oliva DO [address] [place] [address] PCP - General Family Medicine 11/18/18 documented as of this encounter
--- OUTSIDE RECORDS SUMMARY | 2024-08-29 16:46 | External Medical Summary ---
Author Name Unknown Address Unknown Organization K01:LABORATORY [facility] [place] - [address] [place] [address] Laboratory Report Ordering Provider Test Date Status CATRACHO ANDRES 08/14/2024 10:36:18 Final Observation Date Value Abnormality Reference (Units ) Status Hemoglobin 08/14/2024 10:36:18 13.3 Below low normal 14 .0-16.8 (g/dL) Final Performing Location LABORATORY [facility] [place] - [address] [place] [address]
--- OUTSIDE RECORDS SUMMARY | 2024-08-29 16:46 | External Medical Summary | Summary of Care ---
Author Name Unknown Organization [facility] Address [address] [facility] [place] [address] Phone [phone] Care Team Providers Care Cooking Instructor Name Role Phone Mckenna Hayden DO Primary Care Provider + [phone] Reason for Visit * Reason Onset Date Comments Nurse Documentation 08/13/2024 Encounter Details Date Type Department Care Team (Late st Contact Info) Description [facility] [address] [place] [phone] Mckenna Hayden DO [address] [facility] [place] [address] Nurse Documentation Allergies Active Allergy Reactions Criticality Noted Date [...] 3 times. If chest pain continues, call [phone] Tab 3 02/23/20 16 Active Additional Information [...] Active Atorvastatin Calcium 10 MG Oral Tablet (Lipitor)Jaketio ns:Dyslipidemia, goal LDL below 70 Take 1 [...] Active Doxazosin Mesylate 2 MG Oral Tablet (Cardura)Peter ns:BPH with obstruction/lower urinary tract symptoms Take [...] 70 10/16/2019 Coronary artery disease invo lving kashia coronary artery of kashia heart without angina pectoris 11/20/2018 Sciatica of [...] encounter Miscellaneous Notes * Telephone Encounter - Talia Medellin LPN - 08/13/2024 2:16 PM EST Patient has been informed of below message and verbalized understanding. * Addendum Note - Mckenna Hayden DO - 08/13/2024 2:07 PM ESTAddended by: MCKENNA HAYDEN on: 08/13/2024 02:07 PM Modules accepted: Orders * Telephone Encounter - Mckenna Hayden DO - 08/13/2024 2:07 PM EST Ordered * Telephone Encounter - Summer Power OSA [...] Family Practice, Chris [facility] [address] [phone] Mckenna Hayden DO [address] [place] [id number] 10/13/2024 11:00 AM EST Office Visit Cardiology, [facility] [address] [place] [address] Meera Nolasco PA-C [address] [place] [id number] 09/07/2025 10:00 AM EST Nurse Only Ancillary Department, Chris [facility] [address] [phone] Chris, Nurse Annual Wellness [address] [facility] [place] [id number] Scheduled Orders Name Type Priority Associated Diagnoses Orde r Schedule LIPID PANEL WITH DIRECT LDL IF TG IS HIGH Lab Routine Dyslipidemia, goal LDL below 70 Expected: 08/14/2024, Expires: 02/27/2025 BASIC METABOLIC PANEL Lab Routine Dyslipidemia, goal LDL below 70 Expected: 08/14/2024, Expires: 02/27/2025 HEPATIC FUNCTION PANEL Lab Routine Dyslipidemia, goal LDL below 70 Expected: 08/14/2024, Expires: 02/27/2025 Scheduled Procedures Name Priority Associated Diagnoses Date/Ti [...] Additional history exists CKD PHOS USE SMARTSET 35810 08/16/202407/28, 04/07/2021, 09/15/2019, Additional history exists CKD HGB USE SMARTSET 80824 09/06/202409/06, 08/16/2023, 05/09/2022, Additional history exists GFR 09/07/2024 03/07/2024, 09/28, 08/16/2023, Additional history exists Adult Wellness Visit 08/13/2025 08/13/2024, 08/06/20 23 Depression Screening 08/13/2025 08/13/2024 Cologuard 09/20/2026 09/20/2023, 08/27, 09/10/2023, Additional history exists Colonoscopy 03/03/2029 03/03/2024, 03/2024, 10/24/2007 Colorectal Cancer Screening 03/03/2029 DTap/Tdap Vaccines (2 - Td or Tdap) 03/21/2029 03/21/2019 Zoster Vaccines Completed 07/20/2020, 080 02/2020, 05/25/2017 Pneumococcal Vaccine: 65+ Years Completed [...] as of this encounter Visit Diagnoses Diagnosis Dyslipidemia, goal LDL below 70- Primary Other and unspecified hyperlipidemia documented in this encounter Care Teams Cooking Instructor Relationship Specialty Start Date End Date Mckenna Hayden DO [address] [place] [id number] PCP - General Family Medicine 11/18/18 documented as of this encounter
--- OUTSIDE RECORDS SUMMARY | 2024-08-29 16:46 | External Medical Summary ---
Author Name Unknown Address Unknown Organization K01:[facility] [place] [facility] [place] [address] [facility] [address] [facility] [address] Laboratory Report Ordering Provider Test Date Status CATRACHO ANDRES 08/14/2024 10:36:18 Final Observation Date Value Abnormality Reference (Units ) Status BUN 08/14/2024 10:36:18 20 6-20 (mg/dL) Final Creatinine 08/14/2024 10:36:18 1.3 Above high normal 0.6-1.2 (mg/dL) Final Glomerular filtration rate/1.73 sq M.predicted [Volume Rate/Area] in Serum, Plasma or Blood by Creatinine-based formula (CKD-EPI) 08/14/2024 10:36:18 59 Below low normal >=60 (mL/min) Final eGFR is calculated based on the CKD-EPI 2020 equation. Sodium 08/14/2024 10:36:18 140 135-146 (m mol/L) Final Potassium 08/14/2024 10:36:18 4.8 3.5-5.1 (m mol/L) Final Cl 08/14/2024 10:36:18 103 98-107 (mm ol/L) Final CO2 08/14/2024 10:36:18 29 22-32 (mmo l/L) Final Anion gap 08/14/2024 10:36:18 8 7-15 (mmol /L) Final Glucose 08/14/2024 10:36:18 92 70-120 (mg /dL) Final Calcium 08/14/2024 10:36:18 9.3 8.4-10.2 ( mg/dL) Final Performing Location [facility] [place] [address] [place] [address]
--- OUTSIDE RECORDS SUMMARY | 2024-08-29 16:46 | External Medical Summary | Summary of Care ---
Author Name Unknown Organization [facility] Address [address] [place] [address] Phone [phone] Care Team Providers Care Field Service Technician Poultry Name Role Phone Maia Oliva DO Primary Care Provider + [phone] Reason for Visit * Reason Comments Adult Annual Wellness Visit, Subsequent Visit Encounter Details Date Type Department Care Team (Late st Contact Info) Description 08/13/2024 10:00 AM EST Nurse Only Ancillary Department, [place] [facility] [address] [place] [address] [place], Nurse Annual Wellness [address] [place] [address] Adult Annual Wellness Visit, Subsequent Visit Allergies Active Allergy Reactions Criticality Noted Date [...] 3 times. If chest pain continues, call [phone] Tab 3 02/23/20 16 Active Additional Information [...] 70 10/16/2019 Coronary artery disease invo lving umkumiut coronary artery of umkumiut heart without angina pectoris 11/20/2018 Sciatica of [...] CG/0.3 mL, 12 YRS AND ABOVE, IM [facility] 06/04/2023,08/07/2022 COVID-19, mRNA, LNP-s, PF, B ooster, [...] 08/06/2023 Does the household have a re lar source of income? (Household - for ages [...] on file documented as of this encounter Last Filed Vital Signs Vital Sign Reading Time Taken Comments Blood Pressure 142/68 08/13/2024 10:28 AM EST Pulse 51 08/13/2024 10:28 AM EST Temperature 35.6 C (96 F) 08/13/2024 10: 28 AM EST Respiratory Rate - - Oxygen Saturation 96% 08/13/2024 10: 28 AM EST Inhaled Oxygen Concentration - - Weight 101.1 kg (222 lb 14.4 oz) 2023 10:28 AM EST Height 168.9 cm (5' 6.5") 08/13/2024 10 :28 AM EST Body Mass Index 35.44 08/13/2024 10:28 AM EST documented in this encounter Patient Instructions * Patient Instructions* Janett Sandoval RN - 08/13/2024 10:52 AM EST Patient Instructions - Fall Prevention (This education is for all patients over 65 regardless of symptoms) Remember to take your current medications as prescribed. In order to prevent falls, you are encouraged to: Exercise Utilize assistive/adaptive devices Avoid multifocal lenses when walking Avoid hazards in home Maintain a regular toileting schedule Any questions please contact our office. Preventing Falls in the Home (This education is for all patients over 65 regardless of symptoms) As you get older, falls are more likely. Thats because your reaction time slows. Your muscles and joints may also get stiffer, making them less flexible. Illness, medications, and vision changes can also affect your balance. A fall could leave you unable to live on your own. To make your home safer, follow these tips: Floors Put nonskid pads under area rugs Remove throw rugs Replace worn floor coverings Tack carpets firmly to each step on carpeted stairs. Put nonskid strips on the edges of uncarpeted stairs Keep floors and stairs free of clutter and cords Arrange furniture so there are clear pathways Clean up any spills right away Bathrooms Install grab bars in the tub or shower Apply nonskid strips or put a nonskid rubber mat in the tub or shower Sit on a bath chair to bathe Use bathmats with nonskid backing Lighting Keep a flashlight in each room Put a nightlight along the pathway between the bedroom and the bathroom [employer] Patient Education Copyright 2008 - 2010 [employer] except where otherwise noted Preventing Falls: Exercises to Improve Balance, Flexibility, Strength, and Staying Power (This education is for all patients over 65 regardless of symptoms) Certain types of exercises may help make you less likely to fall. Try the ones below. Or do other exercises that your healthcare provider suggests. Depending on your health, you may need to start slowly. Dont let that stop you. Even small amounts of exercise can help you. Be sure to talk to yourhealthcare provider before starting any exercise program. Improve Balance Many types of exercise can help improve balance. Tyson chi and yoga are good examples. Heres another one to try. You can do it anytime and almost anywhere. Stand next to a counter or solid support. Push yourself up onto your tiptoes. Hold for 5 seconds. If you start to lose your balance, hold on to the counter. Rest and repeat 5 times. Work up to holding for 20 to 30 seconds, if you can. Increase Flexibility Being more flexible makes it easier for you to move around safely. Try exercises like the seated hamstring stretch. Sit in a chair and put one foot on a stool. Straighten your leg and reach with both hands down either side of your leg. Reach as far down your leg as you can. Hold for about 20 seconds. Go back to the starting position. Then repeat 5 times. Switch legs. Build Strength Resistance exercises help build strength. You can do them without equipment. Or you can use weights, elastic bands, or special machines. One such exercise is called the biceps curl. You can hold a 1 pound weight or even a can of soup. Do this exercise at least 3 times a week. Strive for everyday. Sit up straight in a chair. Keep your elbow close to your body and your wrist straight. Bend your arm, moving your hand up to your shoulder. Then slowly lower your arm. Repeat 5 times. Switch to the other arm. Build Your Staying Power Aerobic exercises make your heart and lungs stronger so you can keep moving longer. Walking and swimming are two of the best types of exercises you can do. Using a stationary bike is great, too. Find an aerobic exercise that you enjoy. Start slowly and build up. Even 5 minutes is helpful. Aimfor a goal of 30 minutes, at least 3 times a week. You dont have to do 30 minutes in one session. Break it up and walk a little throughout the day. More Helpful Tips Start easy. Slowly work up to doing more. Talk with your healthcare provider about the best exercises for you. Call senior centers or health clubs about exercise programs. If needed, have a family member watch you walk every so often to check your stability. Exercise with a friend. Choose an activity you both enjoy. Try exercises that you can do anytime, anywhere. Here are two examples. Have someone with you when you first try these: Practice walking by placing one foot right in front of the other. Stand up and sit down 10 times. Repeat this throughout the day. [employer] Patient Education Copyright 2009 - 2010 [employer] except where otherwise noted. Preventing Falls: Moving Safely Using a Cane or Walker (This education is for all patients over 65 regardless of symptoms) Keep the cane away from your feet so you dont trip. A walking aid, such as a cane or walker, can help you stay more independent and avoid falls. Remember to keep your walking aid within easy reach when youre in a chair or in bed. And learn how to use it safely so you dont injure yourself. Using a Cane If you have a stronger side, hold the cane on that side. Get your balance. Move the cane and your weaker leg forward. Support your weight on both the cane and your weaker side. Step with your stronger leg. Start again from step 1. If youre using a folding walker, be sure you know how to lock it open. Check that its locked open before each use. Using a Walker Roll the walker (or lift it, if youre using one without wheels) forward about 12 inches. Step forward with your weaker leg first. Use the walker to help keep your balance. Bring your other foot forward to the center of the walker. Start again from step 1. Helpful Tips Check with your healthcare provider about the right walking aid to use. Ask about a walker with a seat attached. Check the tips of your cane or walker to make sure they have nonskid covers. Move slowly from room to room. Dont balderas. Sit down to get dressed. Use a asher pack or backpack to keep your hands free. Get help for jobs that mean climbing, even on a stepstool. [employer] Patient Education Copyright 2008 - 2010 [employer] except where otherwise noted. Treating Urinary Incontinence in Men (This education is for all patients over 65 regardless of symptoms) You can't always control the release of urine. You may leak urine. Or you may not be able to hold your urine until you can get to a bathroom. This is called urinary incontinence. The problem can be managed. Talk to your doctor about your treatment options. Taking Medications Prescription medications may help you. They may: Help the sphincter to work better. (This is the muscle that closes to keep urine from leaking out of the bladder.) Help stop the bladder from agustín too often to push urine out. Help the bladder muscles contract with more force. Help relax the sphincter muscle and allow urine to flow more freely. Making Changes to Your Routine Certain changes in your daily routine may help. These include: Avoiding caffeine and alcohol. Using timed voiding. This is following a schedule for drinking fluids and urinating. Doing Kegel exercises daily. These exercises involve tightening the muscles in your sphincter and around your bladder to help strengthen them. Your doctor can explain how to do them. Using a Catheter A catheter is a narrow tube that is inserted through the urethra into the bladder. It drains urine.A condom catheter covers the penis. It channels urine into a collection bag. It is worn most of thetime. Intermittent catheterization means inserting a catheter to drain the bladder, then removing it. This is done on a regular schedule. Having Surgery If other options don't work, surgery may be recommended. If surgery is an option, your healthcare provider can discuss it with you and explain its risks and benefits. Healing After Prostate Surgery Surgery on the prostate gland can cause incontinence. Most often, the incontinence is only for a short time. It clears up when healing is complete. Very rarely, prostate surgery can result in permanent incontinence. Hi Mr. Miner, As your primary care physician, I know that regular visits with my patients who have several chronic conditions can go a long way in helping you stay healthy. Many times, the clinic team and I are in touch with you and/or other care team members between office visits to adjust medications, discuss any changes in your health, and review our care plan to make sure it is still meeting your needs. I am dedicated to helping you take a more active role in your overall care. It is important that there are resources available to you, so I created a personalized plan of care with a Health Calendar for you, which is included on the next page of this letter. Below is a list that summarizes your electronic health record: Health Maintenance Due: Health Maintenance Due Topic Date Due Hepatitis C Screening Never done Influenza Vaccine (FLU shot) (1) 04/27/2024 COVID-19 Vaccine ( season) 2024 Albumin/Creatinine Ratio 08/16/2024 CKD PHOS USE SMARTSET 07626 08/16/2024 CKD HGB USE SMARTSET 36571 09/06/2024 Current Medication List: (as of Visit date not found (in office), Visit date not found (telemedicine) ) Current Outpatient Medications Medication Sig Dispense Refill MULTIVITAMINS PO TABS 1 tablet daily Coenzyme Q10 100 MG Tablet 200mg daily aspirin 81 MG chewable tablet Take 1 Tab by mouth daily. With food. (Patient taking differently: Take 1 Tablet by mouth once a day on Sunday, Sunday, and Sunday only. With food.) 1 Tab 0 Atorvastatin Calcium 10 MG Oral Tablet (Lipitor) Take 1 Tablet by mouth in the morning. (Patient taking differently: Take 1 Tablet by mouth in the morning. Takes at night .) 90 Tablet 5 Pain-Off 250-250-65 MG Oral Tablet (Dfeetra-Ltiamxjlixwdn-Xebrqgxv 250-250-65 mg per tab) as needed. NATURAL SUPPLEMENT Gel Beets Losartan Potassium 25 MG Oral Tablet (Cozaar) Take 1 Tablet by mouth in the morning and 1 Tablet before bedtime. 180 Tablet 3 Doxazosin Mesylate 2 MG Oral Tablet (Cardura) Take 1 Tablet by mouth in the morning. 100 Tablet2 Ezetimibe 10 MG Oral Tablet (Zetia) Take 1 Tablet by mouth at bedtime. 90 Tablet 3 nitroglycerin (NITROSTAT) 0.4 MG SUBL One tablet under tongue if needed for chest pain. May repeat 3 times. If chest pain continues, call 911 (Patient not taking: Reported on 02/19/2024) 25 Tab 3 Adult Blood Pressure Cuff Lg Kit Use blood pressure cuff daily. 1 Kit 0 Albuterol Sulfate HFA 108 (90 Base) MCG/ACT Inhalation Aerosol Solution Inhale by mouth 2 Puffsevery 6 hours as needed for Wheezing. 18 g 1 No current facility-administered medications for this visit. Current List of Allergies: (as of Visit date not found (in office), Visit date not found (telemedicine) ) Review of patient's allergies indicates: Allergen Reactions Antibiotic [Neomycin-Polymyxin B Gu] Synthetic antibiotic- pt can not list name at this time Statins Muscle pain Most Recent Lab Results: Results for orders placed or performed in visit on 03/07/24 LIPID PANEL WITH DIRECT LDL IF TG IS HIGH Result Value Ref Range Triglycerides 81 <=174 mg/dL Cholesterol 128 <200 mg/dL HDL Cholesterol 42 >39 mg/dL Non-HDL Cholesterol 86 <=159 mg/dL LDL Cholesterol 70 <=129 mg/dL COMPREHENSIVE METABOLIC PANEL Result Value Ref Range BUN 21 (H) 6 - 20 mg/dL CREATININE 1.4 (H) 0.6 - 1.2 mg/dL EGFR 55 (L) >=60 mL/min SODIUM 142 135 - 146 mmol/L POTASSIUM 4.7 3.5 - 5.1 mmol/L CHLORIDE 106 98 - 107 mmol/L CO2 26 22 - 32 mmol/L ANION GAP 10 7 - 15 mmol/L GLUCOSE 93 70 - 120 mg/dL Albumin 4.4 3.8 - 5.0 g/dL AST 32 10 - 50 U/L Alkaline Phosphatase 76 35 - 130 U/L Bilirubin, Total 0.5 <=1.2 mg/dL CALCIUM 9.3 8.4 - 10.2 mg/dL Protein 6.4 6.0 - 8.3 g/dL ALT 27 10 - 50 U/L Sincerely, Maia Oliva, DO 08/13/2024 [facility] Calendar (as of Visit date not found (in office), Visit date not found (telemedicine) ) Care needs Care needs Last completed Due next Hepatitis C screening --- Never done Flu vaccine (recommended) (1) 06/04/2023 04/27/2024 COVID-19 Vaccine ( season) 2023 04/27/2024 Urine albumin/creatinine test 08/16/2023 08/16/2024 Kidney Function Test 03/07/2024 09/07/2024 Adult Wellness Visit 08/13/2024 08/13/2025 Colorectal cancer screening (colonoscopy 10 years, sigmoidoscopy 5 years, Cologuard 3 years, stool sample 1 year) 03/03/2024 03/03/2029 Diphtheria, tetanus & pertussis vaccines (2 - Td or Tdap) 03/21/2019 03/21/2029 As you look over the recommended services, be sure to check with your insurance company to determine what's covered. [employer] is a great tool that helps you review your medical record online, including test results, doctor notes and your health summary. You can also schedule appointments with me and other members of your care team, request prescription refills and ask for advice related to your medical conditions at [email or web address]. documented in this encounter Progress Notes * Janett Sandoval RN - 08/13/2024 10:31 AM EST AD8 Dementia Screening Interview Person answering questions: patient Remember, "Yes, a change" indicates that there has been a change in the last several years caused by cognitive (thinking and memory) problems 1. Problems with judgement (eg: problems making decisions, bad financial decisions, problems with thinking). No (0) 2. Less interest in hobbies/activities. No (0) 3. Repeats the same things over and over (questions, stories, or statements). No (0) 4. Trouble learning how to use a tool, appliance, or gadget (eg: VCR, computer, microwave, remote control). No (0) 5. Forgets correct month or year. No (0) 6. Trouble handling complicated financial affairs (eg: balancing checkbook, income taxes, paying bills). No (0) 7. Trouble remembering appointments. No (0) 8. Daily problems with thinking and/or memory. No (0) TOTAL AD8: 0 - AD8 Dementia Screening Score The final score is a sum of the number items marked "Yes, A Change". 0 - 1: Normal cognition; 2 or greater: Cognitive impairments is likely to be present - further testing required Adult Annual Wellness Visit: Mark Miner is a 74 year old male who presents for an Adult Annual Wellness Visit. Depression Screening: Did the patient complete the screening questionnaire for Depression? Yes Is the patient's total score for Depression 15 or greater? No, no further intervention needed, unless requested by patient. Did the patient answer positively to the suicide question? No, no further intervention needed, unless requested by patient. In general, compared to other people your age, what would you say that your health is? Good Ht Readings from Last 1 Encounters: 08/13/24 5' 6.5" (1.689 m) Wt Readings from Last 1 Encounters: 08/13/24 222 lb 14.4 oz (101.1 kg) Body Mass Index: BMI Greater than 30 Body mass index is 35.44 kg/m. BP Readings from Last 1 Encounters: 08/13/24 142/68 Medical/Surgical/Family History Reviewed: Yes Past Medical History: Diagnosis Date Allergic rhinitis as a child ASCVD (arteriosclerotic cardiovascular disease) ASCVD (arteriosclerotic cardiovascular disease) Coronary artery disease involving umkumiut coronary artery of [place]kumiut heart without angina pectoris 11/20/2018 Dyslipidemia, goal LDL below 70 Essential hypertension with goal blood pressure less than 140/90 Myocardial infarction (HCC) 2010 Past Surgical History: Procedure Laterality Date CARDIAC ANGIOPLASTY, PERCUTANEOUS, 1 ARTERY 12/31/2012 stent x 1 in [place] COLONOSCOPY, DIAGNOSTIC (RECTUM) 10/24/2007 repeat in 10 years COLONOSCOPY, DIAGNOSTIC (RECTUM) N/A 03/03/2024 hemorrhoids/biopsies show adenomatous polyps/recall 5 years/Colonoscopy COLONOSCOPY, DIAGNOSTIC (RECTUM) 03/03/2024 COLONOSCOPY FLEXIBLE PROXIMAL DIAGNOSTIC performed by Amisha Marcelo MD at [facility] INJECT DX/THER SUBSTANCE INTERLAMINAR LUMBAR/SACRAL W IMAGE GUIDE 10/06/2019 INJECTION SPINE LUMBAR OR SACRAL performed by Lawrence Wyatt, DO at OR [facility] INJECT DX/THER SUBSTANCE INTERLAMINAR LUMBAR/SACRAL W IMAGE GUIDE 10/23/2019 INJECTION SPINE LUMBAR OR SACRAL performed by Lawrence Riossins, DO at [facility] L-/S-SPINE PARAVERTEBRAL FACET INJ,1 LEVEL 10/26/2016 L-/S-SPINE PARAVERTEBRAL FACET INJ, 1 LEVEL performed by Lawrence Wyatt, DO at [facility] SACROILIAC JOINT INJECT W/GUIDANCE 11/22/2020 INJECTION SACROILIAC JOINT performed by Lawrence Wyatt, DO at [facility] Family History Problem Relation Name Age of Onset Cancer Father skin, lung- smoker Mental Disorder Mother everyone has dementia Diabetes None Hypertension None Heart Disorder Uncle (Unspecified) Heart Disorder Uncle (Unspecified) Stroke None Has patient ever had cancer? History of cancer, type: BCC Lt cheek, Rt shoulder Social History Tobacco Use Smoking status: Never Passive exposure: Past Smokeless tobacco: Never Substance Use Topics Alcohol use: Yes Comment: occ beer, occ whiskey Vaping/E-Cigarette Use Vaping/E-Cigarette Use Never User Vaping/E-Cigarette Substances Vaping/E-Cigarette Devices Tobacco/Alcohol screening completed today? Yes Hospital Care: Admissions (within the last year): Not Applicable ER within 30 days: No Does the patient have an Advance Directives/Living Will? Yes Advance Care Planning is important to all adults. Discussed the process of thinking and talking about future healthcare decisions. Patient to get a copy to us to scan into their chart. Last Physical Exam: Last physical exam: 01/2024 Does patient see primary provider regularly? Yes Does patient see other providers? No Patient Care Team updated? Yes Review of patient's allergies indicates: Allergen Reactions Antibiotic [Neomycin-Polymyxin B Gu] Synthetic antibiotic- pt can not list name at this time Statins Muscle pain Immunization History Administered Date(s) Administered COVID-19 mRNA, LNP-s, No Preserve, 2-Dose Series (Moderna) 09/28/2020, 10/23/2020 COVID-19, MRNA-LNP, PF, 30 MCG/0.3 mL, 12 YRS AND ABOVE, IM (PFIZER-Comirnaty) 08/07/2022, 06/04/2023 COVID-19, mRNA, LNP-s, PF, Booster, 100mcg/0.5mg (Moderna) 06/22/2021 Pneumococcal Conjugate Vacc, 13 Valent (Prevnar) 08/14/2017 Pneumococcal Conjugate Vaccine, 20-valent ([id number]) 10/24/2023 Pneumococcal Polysaccharide PPV23 (Pneumovax) 10/13/2013, 03/21/2019 RSV Vac., Recomb, Adjuvant, PF,0.5 Ml (Arexvy) 10/24/2023 Season Influenza, Quad, PF, Adjuvanted, 65+ Yrs, IM (FLUAD) 06/04/2023 Seasonal Influenza, High Dose, Trivalent, PF, IM (Fluzone HD) 07/20/2020 Seasonal Influenza, MDCK, Trivalent, PF, (Flucelvax) 10/13/2013 TDAP (age 10 and older)(Boostrix) 03/21/2019 Varicella Zoster Vaccine (Adult) 05/25/2017 Zoster Vaccine Recombinant (Shingrix) 04/02/2020, 07/20/2020 Current Outpatient Medications Medication Sig Dispense Refill MULTIVITAMINS PO TABS 1 tablet daily Coenzyme Q10 100 MG Tablet 200mg daily aspirin 81 MG chewable tablet Take 1 Tab by mouth daily. With food. (Patient taking differently: Take 1 Tablet by mouth once a day on Sunday, Sunday, and Sunday only. With food.) 1 Tab 0 Atorvastatin Calcium 10 MG Oral Tablet (Lipitor) Take 1 Tablet by mouth in the morning. (Patient taking differently: Take 1 Tablet by mouth in the morning. Takes at night .) 90 Tablet 5 Pain-Off 250-250-65 MG Oral Tablet (Bktepes-Uqikghnzfzqrh-Czpsmlcp 250-250-65 mg per tab) as needed. NATURAL SUPPLEMENT Gel Beets Losartan Potassium 25 MG Oral Tablet (Cozaar) Take 1 Tablet by mouth in the morning and 1 Tablet before bedtime. 180 Tablet 3 Doxazosin Mesylate 2 MG Oral Tablet (Cardura) Take 1 Tablet by mouth in the morning. 100 Tablet 2 Ezetimibe 10 MG Oral Tablet (Zetia) Take 1 Tablet by mouth at bedtime. 90 Tablet 3 nitroglycerin (NITROSTAT) 0.4 MG SUBL One tablet under tongue if needed for chest pain. May repeat 3 times. If chest pain continues, call 911 (Patient not taking: Reported on 02/19/2024) 25 Tab 3 Adult Blood Pressure Cuff Lg Kit Use blood pressure cuff daily. 1 Kit 0 Albuterol Sulfate HFA 108 (90 Base) MCG/ACT Inhalation Aerosol Solution Inhale by mouth 2 Puffs every 6 hours as needed for Wheezing. 18 g 1 No current facility-administered medications for this visit. 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 Yes Patient takes medications as prescribed? Yes Patient manages own medications: Yes Patient uses a pill box? Yes, refill(s) completed by self Dental Exam: Yes: Every 6 Months Eye Screening: No, recent new glasses/exam, encouraged yearly exam Are you having trouble with hearing? Yes, recent audiology exam Do you use an assistive device to help your hearing? Yes Exercise Screening: daily exercise, treadmill up to 2 miles, abdominal exercises Nutrition Assessment: Eats a balanced diet and Eats two meals a day Pain Screening: Are you having any pain? No Sleep Screening Tool 'STOP': Do you snore? Yes Do you feel fatigued during the day? No Do you wake up feeling like you haven't slept? Yes Have you been told you stop breathing at night? No Do you gasp for air or choke while sleeping? No Have you been told you have Sleep Apnea? No Do you have high blood pressure or are on medication(s) to control high blood pressure? Yes SCORE: If you check YES to two or more questions, make a referral for Obstructive Sleep Apnea Offered sleep apnea evaluation - declined Patient and Caregiver Support System: Patient lives with a spouse Means of Transportation: Drives. Not a concern. Patient lives in Split level with basement - 4/4 steps with hand railing Community Resources: Not Applicable Functional Status and ADL Skills: Has patient ever had an amputation? No Functional Assessment: 100- Normal, no complaints, no evidence of disease Ambulation: Patient ambulates without assistive device. Independent Dressing: Gets clothes and dresses without any assistance: Independent Able to move freely in chair or bed including turning over: Independent Repositioning (bed or chair): Not applicable Transfers: Independent Toileting: Goes to bathroom, uses toilet, arranges clothes and returns without any assistance: Independent Toileting: continent of bladder and continent of bowel Feeding: Self Bathing: Self; walk in shower, grab bars no, 2 seats, mat to step out onto Requires none assistance with ADLs. Instrumental ADL's: Shopping: Independent Housekeeping: Independent Handling Finances: Independent DME Vendor Name: Not Applicable Fall Risk Assessment: Can the patient demonstrate that he can stand from a sitting position? Yes Has the patient had a fall within the last 6 months? Yes Does the patient have a problem with his gait or balance? No Does the patient take 4 or more prescription medicines? Yes Does the patient use sedatives or narcotics? No Fall Risk Factors Present: History of falls within the past 6 months Yes Cause of fall: Patient tripped and fell. Uses more than 4 medications Older than age 70 Esn-Nb-enm-Go Test: Time began at 1000. Patient stood from sitting position and walked approximately 10 feet, returned and sat down. Total time for pig-co-hxf-go test was 13 seconds. Ind-Jd-xih-Go Test completed? Yes Gender Specific Preventative Plan: Health Maintenance Topic Date Due Hepatitis C Screening Never done Influenza Vaccine (FLU shot) (1) 04/27/2024 COVID-19 Vaccine (2023- season) 2024 Albumin/Creatinine Ratio 08/16/2024 CKD PHOS USE SMARTSET 60209 08/16/2024 CKD HGB USE SMARTSET 07238 09/06/2024 GFR 09/07/2024 Depression Screening 08/13/2025 Adult Wellness Visit 08/13/2025 Colorectal Cancer Screening 03/03/2029 DTap/Tdap Vaccines (2 - Td or Tdap) 03/21/2029 Zoster Vaccines Completed Pneumococcal Vaccine: 65+ Years Completed Hepatitis B Vaccine Aged Out MENINGOCOCCAL (MENACTRA/MENVEO) Aged Out HPV (Gardasil) Vaccine Aged Out Follow Up/ Referrals/Handouts: Depression screening - Completed Functional assessment - Completed Falls Risk screening - Completed, handout given Exercise screening - Encouraged to conitnue regular exercise routine Nutrition assessment -. Education Provided and Handouts Provided Pain screening - No concerns Incontinence screening - No concerns Routine general medical examination at a health care facility (Primary) Risk and functional assessment Dyslipidemia, goal LDL below 70 Component Latest Ref Rng 03/07/2024 LDL Cholesterol <=129 mg/dL 70 -Med reconciliation completed and compliance discussed. - pt to continue present medications. Continue to monitor and follow with PCP Hypertension goal BP (blood pressure) < 130/80 BP Readings from Last 3 Encounters: 08/13/24 142/68 04/30/24 126/78 03/26/24 122/62 -Med reconciliation completed and compliance discussed. - pt to continue present medications. Continue to monitor and follow with PCP Coronary artery disease involving umkumiut coronary artery of umkumiut heart without angina pectoris -Med reconciliation completed and compliance discussed. - pt to continue present medications. Continue to monitor and follow with Cardiology Asymptomatic bilateral carotid artery stenosis -Med reconciliation completed and compliance discussed. - pt to continue present medications. Continue to monitor and follow with Vascular surgery Stage 3a chronic kidney disease (HCC) Component Latest Ref Rng 03/07/2024 BUN 6 - 20 mg/dL 21 (H) CREATININE 0.6 - 1.2 mg/dL 1.4 (H) EGFR >=60 mL/min 55 (L) Continue to monitor and follow with PCP Hx of nonmelanoma skin cancer Continue to monitor and follow with PCP Patient has been verbally educated on the need or importance of Hemoglobin, Hepatitis C, Microalbumin Creatinine, and Flu Vaccine Labs Hemoglobin, Urine Albumin/Creatinine, Phosphorus ordered today Hepatitis C screening - defer to PCP Flu vaccine - patient declined, states he will go to get this at the pharmacy together with his . Discussed importance of Covid Vaccine: pt has received the vaccine Yes, Patient has received Covid vaccines, still thinking about most recent booster. Would patient like to schedule next AWV visit? Yes Janett Vianca Sandoval, RN Fall Risk Plan of Care Documentation: - Current medications reconciled Patient encouraged to: - Exercise - Provide education materials for Core strengthening - Utilize assistive/adaptive devices - Provide education materials - Avoid multifocal lenses when walking - Avoid hazards in home - Provide education materials - Maintain a regular toileting schedule Janett Sandoval RN 08/13/2024 documented in this encounter Miscellaneous Notes * Pt Handout (not on AVS) - Janett Sandoval RN - 08/13/2024 10:55 AM EST [id number] Fall Prevention Falls often take place due to slipping, tripping, or losing your balance. Millions of people fall every year and injure themselves. Among older adults in the [place] falls are the most common cause of traumatic brain injuries. Every 20 minutes, an older adult dies from a fall. Here are ways to reduceyour risk of falling again: Think about your fall. Was there anything that caused your fall that can be fixed, removed, or replaced? Make your home safe by keeping walkways clear of objects you may trip over, such as electrical cords. Use nonslip pads under rugs. Don't use area rugs or small throw rugs. Use nonslip mats in bathtubs and showers. Hang grab rails by the toilet and inside and outside the shower. Install handrails and lights on staircases. The handrails should be on both sides of the stairs. Use night lights. Don't walk in poorly lit areas. Don't stand on chairs or wobbly ladders. Use care when reaching overhead or looking up. This position can cause a loss of balance. Be sure your shoes fit well, are in good condition, and have nonslip bottoms. Wear shoes both inside and outside of your home. Don't go barefoot or wear slippers. Be cautious when going up and down stairs, curbs, and when walking on uneven sidewalks. If your balance is poor, consider using a cane or walker. Talk with your healthcare provider about having a balance assessment. If your fall was related to alcohol use, stop or limit alcohol intake. Ask your provider for help if you think you may overuse alcohol and can't stop. If your fall was related to use of sleeping medicines, talk with your provider about this. You may need to reduce your dosage at bedtime if you wake up during the night to go to the bathroom. To reduce the need for nighttime bathroom trips: o Don't drink fluids for several hours before going to bed o Empty your bladder before going to bed o Men can keep a urinal at the bedside Stay as active as you can. Balance, flexibility, strength, and endurance all come from exercise.They all play a role in preventing falls. Ask your provider which types of activity are right for you. Try to do some type of exercise every day. Get your eyes checked once a year or more often if your vision changes If you have pets, know where they are before you stand up or walk so you don't trip over them. Go over all your medicines with a pharmacist or other provider. This is to see if any of them could make you more likely to fall. Have this type of medicine review at least once every year. If your provider advises a new medicine, ask if the side effects will affect your balance. Don't move quickly from one position to another. For instance, don't stand up fast from sitting.This can cause dizziness and may lead to a fall. Sit down when putting on pants, socks, and shoes. This will make you less likely to lose your balance and fall. Always let your provider know if you have fallen since your last visit. Contact your provider right away if you're having balance problems or falling more often. Last Reviewed Date: 2021 00:00:00 5620-0609 [employer]. All rights reserved. This information is not intended as a substitute for professional medical care. Always follow your healthcare professional's instructions. * Pt Handout (not on AVS) - Janett Sandoval RN - 08/13/2024 10:55 AM EST Images from the original note were not included. [id number] 5 Steps for Eating Healthier Changing the way you eat can improve your health. It can lower your cholesterol and blood pressure,and help you stay at a healthy weight. Your diet doesn?t have to be bland and boring to be healthy.Just watch your calories and follow these steps: Step 1. Eat fewer unhealthy fats Choose more fish and lean meats instead of fatty cuts of meat. Skip butter and lard, and use less margarine. Replace these with healthier fats, such as olive, canola, or avocado oils. Pass on foods that have palm, coconut, or partially hydrogenated oils. Eat fewer high-fat dairy foods like cheese, ice cream, and whole milk. Get a heart-healthy cookbook and try some new recipes. Step 2. Go light on salt Keep the saltshaker off the table. Limit high-salt ingredients, such as soy sauce, bouillon, and garlic salt. Instead of adding salt when cooking, season your food with herbs, spices, and other flavorings. Try lemon, garlic, onion, vinegar, or salt-free herb seasonings. Limit convenience foods, such as boxed or canned foods and restaurant food. Read food labels and choose lower-sodium options. Buy fresh, frozen, or canned vegetables that don't have added salt. Step 3. Limit sugar Pause before you add sugars to pancakes, cereal, coffee, or tea. This includes white and brown table sugar, syrup, honey, and molasses. Cut your usual amount by half. Swap out sugar-filled soda and other drinks. Buy sugar-free or low-calorie beverages. Remember, water is always the best choice. Try adding lemon juice to water for extra flavor. Read labels and choose foods with less added sugar. Keep in mind that dairy foods and foods withfruit will have some natural sugar. Cut the sugar in recipes by 1/3 to 1/2. Boost the flavor with extracts like almond, vanilla, or orange. Or add spices such as cinnamon or nutmeg. Step 4. Eat more fiber Eat fresh fruits and vegetables every day. Boost your diet with whole grains. Go for oats, whole-grain rice, and bran. Add beans and lentils to your meals. Drink more water to match your fiber increase to help prevent constipation. Step 5. Pay attention to serving sizes Remember that a serving size is a standard measurement. It will let you track the amount of fat,calories, and other nutrients in the food you eat. Read the Nutrition Facts label on packaged foods to learn their serving sizes. Use serving sizes to assess how much food you put on your plate. Pay attention to your portions.How many servings are you eating? Keep in mind that your needs may change if you?re more active or less active, or if you have other factors that change your calorie needs. Use your hand to help you measure serving sizes. For example: o 1 teaspoon: This is about the size of the first joint of your thumb. o 1 tablespoon: This is about the size of the first 2 joints of your thumb. o 1 ounce: This is about what you can fit in your cupped hand. o 2 to 3 ounces: This is about the size of the palm of your hand. o cup: This is also about what you can fit in your cupped hand. o 1 cup: This is about the size of your fist. Last Reviewed Date: 2022 00:00:00 3003-0026 [employer]. All rights reserved. This information is not intended as a substitute for professional medical care. Always follow your healthcare professional's instructions. documented in this encounter Plan of Treatment Upcoming Encounters Date Type Department Care Team (Late st Contact Info) Description 08/29/2024 11:50 AM EST Office Visit Family [facility], Chris [facility] [address] [place] [phone] Maia Oliva DO [address] [facility] [place] [address] 10/13/2024 11:00 AM EST Office Visit Cardiology, [facility] [address] [place] [address] [address] Meera Nolasco PA-C [address] [place] [address] 09/07/2025 10:00 AM EST Nurse Only Ancillary Department, [place] [facility] [place] [phone] Chris, Nurse Annual Wellness [address] [place] [address] Scheduled Orders Name Type Priority Associated Diagnoses Orde r Schedule ALBUMIN / CREATININE RATIO, URINE Lab Routine Stage 3a chronic kidney disease (HCC) Expected: 08/13/2024 (Approximate), Expires: 08/13/2025 PHOSPHORUS Lab Routine Stage 3a chronic kidney disease (HCC) Expected: 08/13/2024 (Approximate), Expires: 08/13/2025 HGB Lab Routine Stage 3a chronic kidney disease (HCC) Expected: 08/13/2024 (Approximate), Expires: 08/13/2025 Scheduled Procedures Name Priority Associated Diagnoses Date/Ti [...] Additional history exists CKD PHOS USE SMARTSET 43413 08/16/202407/28, 04/07/2021, 09/15/2019, Additional history exists CKD HGB USE SMARTSET 43721 09/06/202409/06, 08/16/2023, 05/09/2022, Additional history exists GFR [...] as of this encounter Visit Diagnoses Diagnosis Routine general medical examination at a health care facility- Primary Risk and functional assessment Screening for unspecified condition Dyslipidemia, goal LDL below 70 Other and unspecified hyperlipidemia Hypertension goal BP (blood pressure) < 130/80 Unspecified essential hypertension Coronary artery disease involving umkumiut coronary artery of umkumiut heart without angina pectoris Asymptomatic bilateral carotid artery stenosis Occlusion and stenosis of multiple and bilateral precerebral arteries without mention of cerebral infarction Stage 3a chronic kidney disease (HCC) Hx of nonmelanoma skin cancer Personal history of other malignant neoplasm of skin documented in this encounter Care Teams Field Service Technician Poultry Relationship Specialty Start Date End Date Maia Oliva DO [address] [place] [facility] [address] PCP - General Family Medicine 11/18/18 documented as of this encounter
--- OUTSIDE RECORDS SUMMARY | 2024-08-29 16:46 | External Medical Summary | Summary of Care ---
Author Name Unknown Organization [facility] Address [address] [address] Phone [phone] Care Team Providers Care Carriage Dogger Name Role Phone Mckenna Hayden DO Primary Care Provider + [phone] Encounter Details Date Type Department Care Team (Late st Contact Info) Description 08/13/2024 [facility] [address] [facility] [place] [phone] Mckenna Hayden DO [address] [facility] [place] [address] Allergies Active Allergy Reactions Criticality Noted Date [...] 3 times. If chest pain continues, call [phone] Tab 3 02/23/20 16 Active Additional [...] 70 10/16/2019 Coronary artery disease invo lving kletsel dehe wintun coronary artery of k[place]sel de[place] heart without angina pectoris 11/20/2018 Sciatica of [...] as of this encounter Miscellaneous Notes * Addendum Note - Mckenna Hayden DO [...] Office Visit Family Practice, Chris [facility] [address] [address] [phone] Mckenna Hayden DO [address] [place] [address] 10/13/2024 11:00 AM EST Office Visit Cardiology, [facility] [address] [place] [place] [address] Meera Nolasco PA-C [address] [place] [address] 09/07/2025 10:00 AM EST Nurse Only Ancillary Department, [place] [facility] Venkata [address] [place] [phone] Chris, Nurse Annual Wellness [address] [place] [address] [place] [address] Scheduled Orders Name Type Priority Associated Diagnoses [...] Additional history exists CKD PHOS USE SMARTSET 76404 08/16/202407/28, 04/07/2021, 09/15/2019, Additional history exists CKD HGB USE SMARTSET 96440 09/06/202409/06, 08/16/2023, 05/09/2022, Additional history exists GFR 09/07/2024 03/07/2024, 09/28, 08/16/2023, Additional history exists Adult Wellness Visit 08/13/2025 08/13/2024, 08/06/20 Depression Screening 08/13/2025 08/13/2024 Cologuard 09/20/2026 09/20/2023, [...] hyperlipidemia documented in this encounter Care Teams Carriage Dogger Relationship Specialty Start Date End Date Mckenna Hayden DO [address] [place] [address] PCP - General Family Medicine 11/18/18 documented as of this encounter
--- OUTSIDE RECORDS SUMMARY | 2024-08-29 16:46 | External Medical Summary | Summary of Care ---
Author Name Unknown Organization [facility] Address [address] [address] Phone [phone] Care Team Providers Care Nutrition Director Name Role Phone Maia Oliva DO Primary Care Provider + [phone] Encounter Details Date Type Department Care Team (Late st Contact Info) Description 08/13/2024 [facility]phone [facility] [address] [facility] [place] [phone] Maia Oliva DO [address] [facility] [place] [address] Allergies Active Allergy Reactions Criticality Noted Date [...] 3 times. If chest pain continues, call [phone] Tab 3 02/23/20 16 Active Additional Information [...] 70 10/16/2019 Coronary artery disease invo lving enterprise coronary artery of enterprise heart without angina pectoris 11/20/2018 Sciatica of [...] Date Recorded PHQ Adult Total Score 0 08/06/2023 Hunger Vital Sign Answer Date Recorded Within [...] Visit Family Chris Jones [address] [place] [phone] Maia Oliva DO [address] [place] [address] 10/13/2024 11:00 AM EST Office Visit Cardiology, [facility] [address] [place] [address] [address] Meera Nolasco PA-C [address] [place] [address] Scheduled Procedures Name Priority Associated Diagnoses Date/Ti me COLONOSCOPY FLEXIBLE PROXIMA L DIAGNOSTIC Recall History of colonic polyps Health Maintenance Due Date Last Done Comments Hepatitis C Screening 1968 Fecal Occult Blood Test 1995 Sigmoidoscopy 1995 COVID-19 Vaccine ( season) 2024 06/04/2023, 08/07/2022, 06/22/2021, Additional history exists Influenza Vaccine (FLU shot) (#1) 2024 06/04/2023, 07/20/2020, 10/13/2013 Depression Screening 08/06/2024 08/06/2023 Albumin/Creatinine Ratio 08/16/2024 023, 05/09/2022, 09/15/2019, Additional history exists CKD PHOS USE SMARTSET 64065 08/16/202407/28, 04/07/2021, 09/15/2019, Additional history exists CKD HGB USE SMARTSET 39398 09/06/202409/06, 08/16/2023, 05/09/2022, Additional history exists GFR 09/07/2024 03/07/2024, 09/28, 08/16/2023, Additional history exists Adult Wellness Visit 08/13/2025 08/13/2024, 08/06/20 23 Cologuard 09/20/2026 09/20/2023, 08/27, 09/10/2023, Additional history [...] filedocumented as of this encounter Care Teams Nutrition Director Relationship Specialty Start Date End Date Maia Oliva DO [address] [place] [address] PCP - General Family Medicine 11/18/18 documented as of this encounter
--- NOTE | 2024-08-29 17:10 | Cardiology Consultation ---
Date of Consultation August 29, 2024 Assessment & Plan (1) Atrial flutter with rapid ventricular response: Patient denies any symptoms to suggest infectious process. Agree with low-dose metoprolol to tartrate 12.5 mg p.o. every 6 to start although given history of baseline sinus bradycardia with outpatient EKG performed earlier this year revealing sinus bradycardia 49 bpm at rest, he may not tolerate beta-angelica in the long-term. When I seen him in the emergency department, sinus rhythm in the 80s to 90s was present until think is reasonable to start this now. His [id number] score is 4 for age (he is very close to 75 years old and so therefore I would assign him 2 points) hypertension, and known vascular disease with previous CAD/OR. He is therefore considered to be at a moderate to high risk for cardioembolic stroke and would recommend anticoagulation. Unfractioned heparin has been initiated and depending upon need for invasive treatment, timing of transitioning to an oral anticoagulant will be determined. His high-sensitivity troponin is minimally elevated and will be trended. Will plan for echo tomorrow. History of Present Illness Attending Physician: Jeane Mackenzie MD History of Present Illness Mr Miner is a 74 year old male seen in cardiology consultation for the evaluation of symptomatic atrial flutter with rapid ventricular response. He is accompanied by his daughter and spouse, Tennille, in room D9, of the emergency department during my assessment. He had a previously scheduled routine appointment with his primary care provider, Dr. Maia Oliva earlier today at [facility]. He woke up 5 AM not feeling well he had a vague pressure sensation in his epigastric region and the sensation was reminiscent of when he had a previous myocardial infarction in 2011. He took his blood pressure and noted that his heart rate was 150 and did not come down. He went to the appointment as scheduled and was found to be in atrial flutter with 2: 1 conduction with ventricular rate in the range of 150-159 bpm. He was referred to the emergency department and on arrival ongoing atrial flutter was noted. At 12:06 PM he received 6 mg of IV adenosine. The ventricular rate slowed down with clear flutter waves noted consistent with atrial flutter. He then received a dose of 5 mg of IV metoprolol and shortly thereafter converted to sinus rhythm. During my assessment, sinus rhythm in the 80s to 90s present and he was comfortable with no additional symptoms. Denies chest discomfort in the epigastric discomfort had resolved. History includes: 1.Myocardial infarction while at a training session in [facility] Dec, 2012. Cardiac catheterization report from the procedure describes 100% proximal circumflex stenosis for which patient underwent PCI and stent placement nonobstructive disease noted elsewhere including 25% mid LAD stenosis, 30% long tubular proximal to mid right coronary artery stenosis,25% right PDA branch stenosis 2.Dyslipidemia with poor tolerance to statins 3.Hypertension 4.Chronic pain syndrome/chronic back pain. Allergies Allergy/AdvReac Type Severity Reaction Status Date / Time Penicillins Allergy Unknown rash Unverified 08/29/24 12:46 SYNTHETIC PENICILLIN Allergy Unknown rash Uncoded 08/29/24 12:46 Home Medications Medication Instructions Recorded Confirmed Type amlodipine 5 mg tablet 5 mg PO BID 08/29/24 08/29/24 History aspirin 81 mg chewable tablet 81 mg PO DIRECTED 08/29/24 08/29/24 History atorvastatin 10 mg tablet 10 mg PO DAILY 08/29/24 08/29/24 History coenzyme Q10 30 mg capsule 30 mg PO DAILY 08/29/24 08/29/24 History doxazosin 2 mg tablet 2 mg PO QAM 08/29/24 08/29/24 History ezetimibe 10 mg tablet 10 mg PO HS 08/29/24 08/29/24 History losartan 25 mg tablet 25 mg PO DAILY 08/29/24 08/29/24 History multivitamin 1 tab PO QAM 08/29/24 08/29/24 History Patient History Social History Smoking Status: Never smoker Hx Alcohol Use: Yes Hx Substance Use: No Preferred Language: Bulgarian Communication Ability: Effective 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 Beliefs That Will Affect Care: Religion Religion Beliefs: Anabaptism Current Living Situation: Spouse Other Information That Helps Us Care for You: No Feels Safe at Home: Yes Safety Concerns: Feels Safe At This Time Assistive Devices: Glasses Review of Systems Review of Systems: All systems reviewed & are unremarkable except as noted in HPI & below Physical Exam Physical Exam: General: no acute distress and stated age Eyes: conjunctiva are pink and non-injected, sclera clear Neck: normal jugular venous pulse, no hepatojugular reflux Chest: normal shape and normal respiratory effort Lungs: clear to auscultation and percussion Cardiac Exam: - regular heart sounds, no murmurs, rubs, or gallops, no jugular venous distention Abdomen: abdomen soft, non-tender, no abnormal masses and no hepatosplenomegaly Musculoskeletal: no gait disturbance, no weakness Extremities: no edema and no cyanosis Neuro:awake, conversant, follows commands, no focal motor deficits Psych: appropriate affect and insight. Results & Data Vital Signs (Past 12 Hours) Vital Signs Temp Pulse Pulse Resp BP BP Pulse Ox 08/29/24 16:34 36.4 C L 78 20 128/83 95 08/29/24 15:21 08/29/24 15:02 84 12 116/80 95 08/29/24 14:30 81 13 104/76 96 08/29/24 14:00 100 H 12 119/75 95 08/29/24 13:31 118/89 08/29/24 13:26 96 08/29/24 13:15 95 08/29/24 13:00 141/87 H 08/29/24 12:57 79 23 96 08/29/24 12:54 79 22 96 08/29/24 12:42 79 08/29/24 12:42 79 18 95 08/29/24 12:33 104 H 13 96 08/29/24 12:32 109 H 08/29/24 12:30 127/70 08/29/24 12:26 118/76 08/29/24 12:25 102 H 15 118/76 94 08/29/24 12:20 155 H 132/92 08/29/24 12:18 152 H 11 L 96 08/29/24 12:05 08/29/24 12:05 08/29/24 11:45 155 H 24 97 08/29/24 11:43 154 H 08/29/24 11:30 36.7 C 155 H 18 131/102 H 96 O2 Del Method 08/29/24 16:34 Room Air 08/29/24 15:21 Room Air 08/29/24 15:02 Room Air 08/29/24 14:30 Room Air 08/29/24 14:00 Room Air 08/29/24 13:31 08/29/24 13:26 08/29/24 13:15 08/29/24 13:00 08/29/24 12:57 08/29/24 12:54 08/29/24 12:42 08/29/24 12:42 08/29/24 12:33 08/29/24 12:32 08/29/24 12:30 08/29/24 12:26 08/29/24 12:25 Room Air 08/29/24 12:20 08/29/24 12:18 08/29/24 12:05 Room Air 08/29/24 12:05 Room Air 08/29/24 11:45 Room Air 08/29/24 11:43 08/29/24 11:30 Room Air Laboratory Results Cardiac Enzymes 08/29/24 08/29/24 Range/Units 11:40 15:34 AST 23 (13-39) U/L Troponin I High Sens 15.3 23.4 H (0-20) pg/ml CBC 08/29/24 Range/Units 11:40 WBC 6.16 (4.8-10.8) K/ul RBC 4.41 L (4.70-6.10) M/uL Hgb 14.0 (14.0-18.0) g/dl Hct 41.8 L (42.0-52.0) % Plt Count 174 (130-400) K/uL Neut # (Auto) 4.08 (1.40-6.50) K/uL Lymph # (Auto) 1.15 L (1.20-3.40) K/uL [place] # (Auto) 0.61 H (0.11-0.59) K/uL Eos # (Auto) 0.27 (0.00-0.50) K/uL Baso # (Auto) 0.04 (0.00-0.20) K/uL Comprehensive Metabolic Panel 08/29/24 Range/Units 11:40 Sodium 140 (136-145) mmol/L Potassium 4.7 (3.5-5.1) mmol/L Chloride 106 (98-107) mmol/L Carbon Dioxide 30 (21-32) mmol/L BUN 23 (6-23) mg/dl Creatinine 1.29 (0.6-1.4) mg/dl Glucose 103 H (70-99(Fasting)) mg/dl Calcium 8.7 (8.6-10.3) mg/dl AST 23 (13-39) U/L ALT 25 (7-52) U/L Alkaline Phosphatase 65 (34-104) U/L Total Protein 6.6 (6.0-8.3) gm/dl Albumin 4.0 (3.4-5.0) gm/dl Intake and Output 08/29/24 08/29/24 08/29/24 06:59 14:59 22:59 Intake Total 1000 / 1000 Balance 1000 / 1000 Intake: IV 1000 / 1000 Sodium Chloride 0.9% 1,000 ml @ 1000 / 1000 999 mls/hr IV .Q1H1M ONE Rx#: [id number] Other: Weight 104.9 kg 103 kg Weight Measurement Method Built in Bedscale Standing Scale Patient Weight 08/30/24 06:59 Weight 103 kg Diagnostic Findings Repeat EKG performed today 08/29/2024 at 1243 revealed baseline artifact with sinus rhythm at 80 bpm. No significant repolarization abnormalities. Summary of nuclear stress test took place in November, Abnormal Lexiscan nuclear perfusion imaging study demonstrating a large posterior and lateral infarct with mild sarah-infarct ischemia of the apex. Infarct/scar encompasses 22% of the total myocardium. Reversibility/sarah-infarct ischemia involves 13% of the total myocardium. Abnormal gated SPECT imaging. Akinesis of the posterolateral wall. The calculated resting left ventricular ejection fraction is 58%, however, accuracy limited by lack of counts in the posterolateral wall.
[2024-08-29] MEDS: EZETIMIBE 10 MG TAB PO SCH (20:09)
[2024-08-29 21:43] LABS: ANTI-Xa, UFH(UnfractionatedHep 0.41 IU/ml (0.3-0.7)
[2024-08-29 22:48] VITALS: O2SAT 95
--- OUTSIDE RECORDS SUMMARY | 2024-08-29 22:49 | External Medical Summary | Summary of Care ---
Author Name Unknown Organization [facility] [address] [address] Phone [phone] Care Team Providers Care Custody Officer Name Role Phone Maia Oliva DO Primary Care Provider + [phone] Reason for Visit * Reason Comments Follow Up Pt here today for 6 month follow upPt states he has a "fullness in his chest" Encounter Details Date Type Department Care Team (Late st Contact Info) Description 08/29/2024 11:50 AM EST Office Visit [facility] [address] [address] [place] [phone] Maia Oliva, DO [address] [facility] [place] [id number] Chest pain, unspecified type*; SVT (supraventricular tachycardia) (HCC); Essential hypertension with goal blood pressure less than 140/90 Allergies Active Allergy Reactions Criticality Noted Date Comments Neomycin-Polymyxin B Gu 01/15/2013 Synthetic antibiotic- pt can not list name at this time Statins Muscle pain 09/10/2018 documented as of this encounter (statuses as of 08/29/2024) Medications MULTIVITAMINS PO TABS 1 tablet daily Activ e nitroglycerin (NITROSTAT) 0.4 MG SUBLIndications: CVD (arteriosclerotic cardiovascular disease),Old myocardial infarct One tablet under tongue if needed for chest pain. May repeat 3 times. If chest pain continues, call [phone] Tab 3 02/23/20 16 Active Coenzyme Q10 100 MG Tablet 200mg daily 02/23/20 16 Active aspirin 81 MG chewable tabletIndications: ASCVD (arteriosclerotic cardiovascular disease),S/P angioplasty with stent,Old myocardial infarct Take 1 Tab by mouth daily. With food. 1 Tab 11/21/19 19 Active Additional Information Patient taking differently:81 mg OralMWF, With food., Reported on 08/29/2024 Adult Blood Pressure Cuff Lg KitIndications:Hyp ertensive [...] Oral Daily(AM), Takes at night, Reported on 08/29/2024 Pain-Off 250-250-65 MG Oral Tablet (Aspirin-Acetamino phen-Caffeine [...] as of this encounter (statuses as of 08/29/2024) Active Problems Problem Noted Date Diagnosed Date [...] 70 10/16/2019 Coronary artery disease invo lving [place] coronary artery of [place] tribe heart without angina pectoris 11/20/2018 Sciatica of [...] as of this encounter (statuses as of 08/29/2024) Resolved Problems Problem Noted Date Diagnosed Date [...] as of this encounter (statuses as of 08/29/2024) Immunizations Name Administration Dates Next Due COVID-19 mRNA, LNP-s, No Pre serve, 2-Dose Series (Moderna) 10/23/2020,09/28/2020 COVID-19, MRNA-LNP, PF, 30 M CG/0.3 mL, 12 YRS AND ABOVE, IM ([facility]) 06/04/2023,08/07/2022 COVID-19, mRNA, LNP-s, PF, B ooster, [...] Sign Reading Time Taken Comments Blood Pressure 109/81 08/29/2024 10:09 AM EST Pulse 160 08/29/2024 10:09 AM EST Temperature 36.3 C (97.3 F) 08/29/2024 10:[address] Respiratory Rate 18 08/29/2024 10:09 AM EST Oxygen Saturation 96% 08/29/2024 10:09 AM EST Inhaled Oxygen Concentration - - Weight 102.1 kg (225 lb) 08/29/2024 10:09 AM EST Height - - Body Mass Index 35.77 08/13/2024 10:28 AM EST documented in this encounter Progress Notes * Maia Oliva DO - 08/29/2024 10:52 AM EST Subjective: Mark Miner is a 74 year old male. Chief Complaint Patient presents with Follow Up Pt here today for 6 month follow up Pt states he has a "fullness in his chest" HPI: 74 year old male presents today an hour earlier for his regular appt, due to shaky feeling, chest pain and pressure that started this am. He carries hx of CAD, and prior WI. Stent placed in 2011. He follows with cardiology. He did have nuclear stress in November that showed area of old WI and hadmild to moderate reversible ischemia. They were considering a cath at that time but patient was asymptomatic. Known hx of bradycardia in the past and this is the reason why he is not on a beta angelica. Nuclear stress test report reviewed dated December 11, 2023: Interpretation Summary Abnormal Lexiscan nuclear perfusion imaging study demonstrating a large posterior and lateral infarct with mild sarah-infarct ischemia of the apex. Infarct/scar encompasses 22% of the total myocardium. Reversibility/sarah-infarct ischemia involves 13% of the total myocardium. Abnormal gated SPECT imaging. Akinesis of the posterolateral wall. The calculated resting left ventricular ejection fraction is 58%, however, accuracy limited by lackof counts in the posterolateral wall. ZIO monitor report reviewed dated Aug 2023: Duration: 6 days, 21 hours Patient had a min HR of 42 bpm, max HR of 211 bpm, and avg HR of 64 bpm. Predominant underlying rhythm was Sinus Rhythm. 1 run of Ventricular Tachycardia occurred lasting 8 beats with a max rate of 211 bpm (avg 186 bpm). 4 Supraventricular Tachycardia runs occurred, the run with the fastest interval lasting 10 beats with a max rate of 194 bpm, the longest lasting 14.1 secs with an avg rate of 109 bpm. Isolated SVEs were rare (<1.0%), SVE Couplets were rare (<1.0%), and SVE Triplets were rare (<1.0%). Isolated VEs were rare (<1.0%, 3615), VE Couplets were rare (<1.0%, 27), andVE Triplets were rare (<1.0%, 2). Today he did take 2 tylenol around 930 am for chest fullness and pressure, he describes this feeling was the same when he had a WI in the past. Currently in the office his heart rate is 150 and he ischest pain free. EKG showed SVT. He has not been ill recently. Meds were reviewed, and taking listed below. Visit from cardiology reviewed February of 2024 and suggested for ongoing medical management as he was doing well and stable. He has not taken Nitro. 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 Lumbar paraspinal muscle spasm Chronic pain syndrome Coronary artery disease involving [place] coronary artery of [place] tribe heart without angina pectoris Dyslipidemia, goal LDL below 70 Hypertensive kidney disease with stage 3a chronic kidney disease Hx of nonmelanoma skin cancer Sacroiliitis, not elsewhere classified (HCC) Asymptomatic bilateral carotid artery stenosis Dyslipidemia, goal LDL below 100 Stage 3a chronic kidney disease (HCC) Carotid occlusion, left Current Outpatient Medications Medication Sig Dispense Refill MULTIVITAMINS PO TABS 1 tablet daily nitroglycerin (NITROSTAT) 0.4 MG SUBL One tablet under tongue if needed for chest pain. May repeat 3 times. If chest pain continues, call [phone] Tab 3 Coenzyme Q10 100 MG Tablet 200mg daily aspirin 81 MG chewable tablet Take 1 Tab by mouth daily. With food. (Patient taking differently: Take 1 Tablet by mouth once a day on Sunday, Sunday, and Sunday only. With food.) 1 Tab 0 Adult Blood Pressure Cuff Lg Kit Use blood pressure cuff daily. 1 Kit 0 Albuterol Sulfate HFA 108 (90 Base) MCG/ACT Inhalation Aerosol Solution Inhale by mouth 2 Puffs every 6 hours as needed for Wheezing. 18 g 1 Atorvastatin Calcium 10 MG Oral Tablet (Lipitor) Take 1 Tablet by mouth in the morning. (Patient taking differently: Take 1 Tablet by mouth in the morning. Takes at night .) 90 Tablet 5 NATURAL SUPPLEMENT Gel Beets Losartan Potassium 25 MG Oral Tablet (Cozaar) Take 1 Tablet by mouth in the morning and 1 Tablet before bedtime. 180 Tablet 3 Doxazosin Mesylate 2 MG Oral Tablet (Cardura) Take 1 Tablet by mouth in the morning. 100 Tablet 2 Ezetimibe 10 MG Oral Tablet (Zetia) Take 1 Tablet by mouth at bedtime. 90 Tablet 3 Pain-Off 250-250-65 MG Oral Tablet (Zflamum-Gjerbejrzhdok-Mlatpjvf 250-250-65 mg per tab) as needed. No current facility-administered medications for this visit. Review of patient's allergies indicates: Allergen Reactions Antibiotic [Neomycin-Polymyxin B Gu] Synthetic antibiotic- pt can not list name at this time Statins Muscle pain Objective: BP 109/81 | Pulse 160 | Temp 97.3 F (36.3 C) (Infrared ) | Resp 18 | Wt 225 lb (102.1 kg) | SpO2 96% | BMI 35.77 kg/m | BSA 2.19 m Physical Exam: General: alert, healthy, and mild distress Heart: tachycardia Lungs: chest symmetric with normal AP diameter, no chest deformities noted, no chest wall tenderness, lungs clear to auscultation Extremities: no edema ASSESSMENT/PLAN: Chest pain (Primary) - EKG; Future; Expected date: 08/29/2024 - EKG Resolved after taking 2 tylenol. Called EMS to transport pt to [facility] ER for further workup and management. [facility] like him to [facility] due to prior hx of chest pain this am, and uncontrolled heart rate. Spoke to Crisis Therapist. SVT (supraventricular tachycardia) (HCC) To [facility] ER for further treatment. Essential hypertension with goal blood pressure less than 140/90 Stable. Maia Oliva DO documented in this encounter Nursing Notes * Angeles Arreguin LPN - 08/29/2024 10:05 AM EST Chief Complaint Patient presents with Follow Up Pt here today for 6 month follow up Pt states he has a "fullness in his chest" ekg done as per dr's order Pt tolerated well. documented in this encounter Plan of Treatment Upcoming Encounters Date Type Department Care Team (Late st Contact Info) Description 10/13/2024 11:00 AM EST Office Visit Cardiology, [facility] [address] [place] [address] [id number] Meera Nolasco PA-C [address] [place] [phone] 09/07/2025 10:00 AM EST Nurse Only Ancillary Department, [facility] [address] [place] [phone] Chris Nurse Annual [facility]ness [address] [phone] Scheduled Orders Name Type Priority Associated Diagnoses Orde r Schedule EKG EKG Routine Chest pain, unspecified type Expected: 08/29/2024 (Approximate), Expires: 09/29/2025 Scheduled Procedures Name Priority Associated Diagnoses Date/Ti me COLONOSCOPY FLEXIBLE PROXIMA L DIAGNOSTIC Recall History of colonic polyps Health Maintenance Due Date Last Done Comments Fecal Occult Blood Test 1995 Sigmoidoscopy 1995 COVID-19 Vaccine ( season) 2024 06/04/2023, 08/07/2022, 06/22/2021, Additional history exists Influenza Vaccine (FLU shot) (#1) 2024 06/04/2023, 07/20/2020, 10/13/2013 GFR 02/12/2025 08/14/2024, 02/24, 10/24/2023, Additional history exists Adult Wellness Visit 08/13/2025 08/13/2024, 08/06/20 23 Depression Screening 08/13/2025 08/13/2024 Albumin/Creatinine Ratio 08/14/202508/14/2 024, 08/16/2023, 05/09/2022, Additional history exists CKD HGB USE SMARTSET 81188 08/14/202508/14, 09/06/2023, 08/16/2023, Additional history exists CKD PHOS USE SMARTSET 31631 08/14/202507/27, 08/16/2023, 04/07/2021, Additional history exists Cologuard 09/20/2026 09/20/2023, 08/27, 09/10/2023, Additional history exists Colonoscopy 03/03/2029 03/03/2024, 07/0 03/2024, 10/24/2007 Colorectal Cancer Screening 03/03/2029 DTap/Tdap Vaccines (2 - Td or Tdap) 03/21/2029 03/21/2019 Zoster Vaccines Completed 07/20/2020, 02/2020, 05/25/2017 Pneumococcal Vaccine: 50+ Years Completed 10/24/2023, 03/21/2019, 08/14/2017, Additional history exists HPV (Gardasil) Vaccine Aged Out No lo nger eligible based on patient's age to complete this topic Hepatitis B Vaccine Aged Out No longe r eligible based on patient's age to complete this topic Hepatitis C Screening Discontinued MENINGOCOCCAL (MENACTRA/MENVEO) Aged Out No longer eligible based on patient's age to complete this topic documented as of this encounter Medical Devices Not on filedocumented as of this encounter Visit Diagnoses Diagnosis Chest pain, unspecified type- Primary SVT (supraventricular tachycardia) (HCC) Other specified cardiac dysrhythmias Essential hypertension with goal blood pressure less than 140/90 documented in this encounter Care Teams Custody Officer Relationship Specialty Start Date End Date Maia Oliva DO PCP - General Family Medicine 11/18/18 documented as of this encounter
[2024-08-30 03:59] LABS: Hematocrit (blood only) 38.7 % (42.0-52.0); Hemoglobin 13.1 g/dl (14.0-18.0); Mean Corpuscular Hemoglobin 31.7 pg (25.0-34.0); Mean Corpuscular Hgb Conc 33.9 g/dL (32.0-36.0); Mean Corpuscular Volume 93.7 fL (80.0-100.0); Mean Platelet Volume 9.5 fL (9.4-12.4); Platelet Count 168 K/uL (130-400); RDW Standard Deviation 44.3 fL (36.4-46.3); Red Blood Count 4.13 M/uL (4.70-6.10); White Blood Count 6.88 K/ul (4.8-10.8)
[2024-08-30 04:15] LABS: BUN Creatinine Ratio 19.3 (10-20); Calcium 8.7 mg/dl (8.6-10.3); Creatinine Clr Calc Pharmacy 67.4 ml/min; Phosphorus 3.7 mg/dl (2.5-4.9); Potassium 4.2 mmol/L (3.5-5.1)
[2024-08-30 04:24] LABS: ANTI-Xa, UFH(UnfractionatedHep 0.54 IU/ml (0.3-0.7)
[2024-08-30 08:02] VITALS: BP 119/62; RESP 16; TEMP 98.1
[2024-08-30] MEDS: DOXAZosin MESYLATE TAB 2 MG TAB PO SCH (08:03)
[2024-08-30] MEDS: ATORVASTATIN 10 MG TAB PO SCH (08:04)
[2024-08-30] MEDS: MULTIVITAMIN TAB PO SCH (08:04)
[2024-08-30] MEDS ORDERED: NON-FORMULARY MEDICATION (Coenzyme Q10 30 mg Capsule) PO SCH (09:00)
--- NOTE | 2024-08-30 10:19 | Cardiology Progress Note ---
Date of Service August 30, 2024 Assessment & Plan (1) Paroxysmal atrial fibrillation: (2) Atrial flutter with rapid ventricular response: Plan: Presented with 2: Atrial flutter, rate 150 bpm. Converted to sinus rhythm after adenosine plus metoprolol but then reverted to an irregular rhythm last evening at 1900. EKG performed this morning at 931 and interpreted independently reveals atrial fibrillation at 66 bpm with incomplete right bundle branch block. His [id number] score is 4 for age (he is very close to 75 years old and so therefore I would assign him 2 points) hypertension, and known vascular disease with previous CAD/MA. He is therefore considered to be at a moderate to high risk for cardioembolic stroke and would recommend anticoagulation. Echocardiogram performed and reviewed independently. Findings of posterior scar consistent with his history of circumflex territory MA in 2013, LVEF lower limit of normal, 50%. Mild relatively flat high sensitive troponin trend, improved down to 26.1 this morning. Given what is known with regards to his past history of coronary heart disease, I do not think this degree of troponin elevation is not surprising and I do not think it reflects an acute intra coronary thrombotic event. Recommend ongoing medication therapy for his CAD. As noted, at baseline sinus bradycardia present with 2 recent outpatient EKGs revealing sinus bradycardia in the upper 40s at baseline. This time I recommend transitioning from a Toprol tartrate to metoprolol succinate 25 mg p.o. daily in the morning. Discontinue unfractioned heparin and start Eliquis 5 mg twice daily. Patient stable for discharge from a cardiac perspective with plans for outpatient follow-up. Admission and Anticipated Discharge Date Admission Date: August 29, 2024 Subjective Patient seen in cardiology follow up. Feel well. Last night at 1900 while using the bathroom, arrhythmia returns. EKG and telem etry appears to be atrial fibrillation rather than typical atrial flutter this am. Denies chest pain or epigastric pain. Physical Exam Physical Exam: General: no acute distress and stated age Eyes: conjunctiva are pink and non-injected, sclera clear Neck: normal jugular venous pulse, no hepatojugular reflux Chest: normal shape and normal respiratory effort Lungs: clear to auscultation and percussion Cardiac Exam: - irregular rhythm , no murmurs Abdomen: abdomen soft, non-tender, no abnormal masses and no hepatosplenomegaly Musculoskeletal: no gait disturbance, no weakness Extremities: no edema and no cyanosis Neuro:awake, conversant, follows commands, no focal motor deficits Psych: appropriate affect and insight. Results & Data Vital Signs (Past 12 Hours) Vital Signs Temp Pulse Pulse Resp BP Pulse Ox O2 Del Method 08/30/24 09:52 66 08/30/24 08:00 36.7 C 67 16 119/62 95 Room Air 08/30/24 07:58 Room Air 08/30/24 02:53 36.5 C 81 18 110/72 95 Room Air 08/30/24 01:14 85 122/64 08/29/24 22:46 36.6 C 79 18 146/89 H 95 Room Air
[2024-08-30] MEDS: APIXABAN 5 MG TABLET PO SCH (10:24)
[2024-08-30] MEDS: METOPROLOL SUCC 25MG EXT REL TAB PO SCH (10:24)
--- NOTE | 2024-08-30 10:31 | Discharge Summary ---
Discharge Summary Date of Service August 30, 2024 Principal Dx & Hospital Course #1 = Principal Diagnosis (1) Atrial flutter with rapid ventricular response: Notes For Next Care Provider Medication Changes From Visit Toprol-XL 25 mg daily Eliquis 5 mg twice daily Admission HPI Per Admitting Provider Mark Miner is a 74-year-old male with past medical history significant for HLD with poor intolerance to statins, history of SC, CAD s/p stenting to LAD in 2011, HTN, history of sinus bradycardia [not currently on beta angelica therapy], asymptomatic bilateral carotid artery stenosis, left carotid artery occlusion, CKD stage IIIa, sciatica of right side associated with disorder lumbosacral spine, lumbar paraspinal muscle spasm, sacroiliitis, chronic back pain/chronic pain syndrome and history of nonmelanoma skin cancer who presented to the ED via EMS from his PCP's office for cardiac evaluation. Patient was initially having palpitation, seen by cardiology, initial rhythm was atrial flutter with 2-1 block, patient was given a dose of IV Lopressor and a dose of IV adenosine, patient eventually after going on metoprolol orally, converted to sinus rhythm, today was seen and examined, patient was also seen by cardiology today, patient is considered stable for discharge with follow-up as outpatient, he is going to remain on Toprol-XL 25 mg daily and started on Eliquis 5 mg twice daily. Updated Medication List Medication Instructions Recorded Confirmed Type amlodipine 5 mg tablet 5 mg PO BID 08/29/24 08/29/24 History aspirin 81 mg chewable tablet 81 mg PO DIRECTED 08/29/24 08/29/24 History atorvastatin 10 mg tablet 10 mg PO DAILY 08/29/24 08/29/24 History coenzyme Q10 30 mg capsule 30 mg PO DAILY 08/29/24 08/29/24 History doxazosin 2 mg tablet 2 mg PO QAM 08/29/24 08/29/24 History ezetimibe 10 mg tablet 10 mg PO HS 08/29/24 08/29/24 History losartan 25 mg tablet 25 mg PO DAILY 08/29/24 08/29/24 History multivitamin 1 tab PO QAM 08/29/24 08/29/24 History apixaban 5 mg tablet (Eliquis) 5 mg PO BID #60 tabs 08/30/24 Rx metoprolol succinate 25 mg 25 mg PO DAILY #30 tabs 08/30/24 Rx tablet,extended release 24 hr (Toprol XL) Hospital Stay Data Consultations 08/29/24 12:51 ED Decision to Admit Stat 08/29/24 13:24 Consult Cardiology Routine Diagnostic Imagining Performed Chest X-Ray 08/29/24 11:24 XR chest 1V portable CLINICAL HISTORY: Chest pain, nonspecific TECHNIQUE: Single frontal radiograph of the chest was obtained. Comparison: None available at the time of this dictation. FINDINGS: No lines and tubes are seen. Cardiomegaly is noted. The aortic arch is calcified. The lungs are clear. No evidence of pleural effusion or pneumothorax. IMPRESSION: No acute chest disease. ACT 112: Negative or not required by law. Electronically signed by: Obie Small M.D. 08/29/2024 11:57 AM Pending Results Patient Have Any Pending Studies at Discharge: No Discharge Instructions Given to Patient (Per Discharging Provider) Continue with taking current medications, follow-up with cardiology as outpatient Total Time Total Time Spent Total Time Spent (In Minutes): More than 35-minute
[2024-08-30 10:56] VITALS: PULSE 67
[2024-08-30] MEDS ORDERED: METOPROLOL TARTRATE 25 MG TAB PO SCH (21:00)
[2024-08-31] MEDS ORDERED: ASPIRIN 81 MG CHEW PO SCH (09:00)
--- NOTE | 2024-09-01 08:42 | Electrocardiogram Report ---
Test Reason : Blood Pressure : */* mmHG Vent. Rate : 80 BPM Atrial Rate : * BPM P-R Int : * ms QRS Dur : 98 ms QT Int : 360 ms P-R-T Axes : * 16 27 degrees QTcB Int : 415 ms Atrial flutter with 4:1 AV conduction Abnormal ECG When compared with ECG of 29-Aug-2024 12:22, No significant change Confirmed by Bc Silva ([id number]) on 09/01/2024 8:41:30 AM Referred By: REFERRED SELF Confirmed By: Bc Silva
[2024-09-01 13:14] LABS: Hepatitis C Vira RNA (Log) PCR <1.18 NOT DETECTED Log IU/mL (NOT DETECTED); Hepatitis C Viral RNA by PCR <15 NOT DETECTED IU/mL (NOT DETECTED)
--- NOTE | 2024-09-01 15:18 | Electrocardiogram Report ---
Test Reason : Blood Pressure : */* mmHG Vent. Rate : 66 BPM Atrial Rate : 82 BPM P-R Int : * ms QRS Dur : 96 ms QT Int : 392 ms P-R-T Axes : * 45 42 degrees QTcB Int : 410 ms Atrial fibrillation Incomplete right bundle branch block Abnormal ECG When compared with ECG of 29-Aug-2024 12:43, (unconfirmed) Atrial fibrillation has replaced Atrial flutter Confirmed by Bc Silva ([id number]) on 09/01/2024 3:18:27 PM Referred By: REFERRED SELF Confirmed By: Bc Silva
== END 2024-08-30 11:33 | disposition home or self-care (01) | DRG 310 ==
LOC: ED 11:17 → 2S 13:33 → SUATTDRO 13:33 → 2S 15:21

== ENCOUNTER 2024-11-30 16:38 | Inpatient (IN) ==
--- OUTSIDE RECORDS SUMMARY | 2024-11-30 16:44 | External Medical Summary | Summary of Care ---
Author Name Unknown Organization [facility] Address [address] [place] [address] Phone [phone] Care Team Providers Care Regional Production Manager Name Role Phone Omarkristin Maiamesfin Gill DO Primary Care Provider [phone] Reason for Visit * Reason Comments Cataracts 74 y/o male here for cataract evaluation. Encounter Details Date Type Department Care Team (Late st Contact Info) Description 10/23/2024 1:45 PM EST Office Visit [facility] [address] [place] [address] Suzi Fernandez MD [address] [place] [address] Posterior subcapsular polar senile cataract of both eyes*; Primary open angle glaucoma of both eyes, moderate stage; Dry eyes, bilateral; Presbyopia; Senile nuclear cataract, bilateral Allergies Active Allergy Reactions Criticality Noted Date Comments Neomycin-Polymyxin B Gu 01/15/2013 Synthetic antibiotic- pt can not list name at this time Statins Muscle pain 09/10/2018 documented as of this encounter (statuses as of 10/23/2024) Medications MULTIVITAMINS PO TABS 1 tablet daily Active Coenzyme Q10 100 MG Tablet 200mg daily 02/23/2016 Act kimmy Adult Blood Pressure Cuff Lg KitIndications: Hypertensive kidney disease with stage 3a chronic kidney disease (HCC) Use blood pressure cuff daily. 1 Kit 05/28/2020 Active Pain-Off 250-250-65 MG Oral Tablet (Aspirin-Acetam inophen-Caffein e 250-250-65 mg per tab) as needed for Other (back pain). Active Losartan Potassium 25 MG Oral Tablet (Cozaar)Indicat ions:Hypertensi ve kidney disease with stage 3a chronic kidney disease (HCC) Take 1 Tablet by mouth in the morning and 1 Tablet before bedtime. 09/01/2024 Active Ezetimibe 10 MG Oral Tablet (Zetia)Indicati ons:Dyslipidemi a, goal LDL below 70 Take 1 Tablet by mouth at bedtime. 90 Tablet 3 09/18/2024 Active Doxazosin Mesylate 2 MG Oral Tablet (Cardura)Indica tions:BPH with obstruction/low er urinary tract symptoms Take 1 Tablet by mouth in the morning. 100 Tablet 2 10/08/2024 10:09 AM EST 09/18/2024 Active Apixaban 5 MG Oral Tablet (Eliquis) Take 1 Tablet by mouth in the morning and 1 Tablet before bedtime. 180 Tablet 3 09/25/2024 5:07 PM EST 09/18/2024 Active Atorvastatin Calcium 10 MG Oral Tablet (Lipitor)Indica tions:Dyslipide henny, goal LDL below 70 Take 1 Tablet by mouth in the morning. 100 Tablet 2 10/13/2024 6:23 AM EST 10/10/2024 Active documented as of this encounter (statuses as of 10/23/2024) Active Problems Problem Noted Date Diagnosed Date Paroxysmal atrial fibrillation 10/13/2024 Atrial flutter with rapid ventricular response 0 09/10/2024 Asymptomatic bilateral carotid artery stenosis 0 04/30/2024 [...] 70 10/16/2019 Coronary artery disease invo lving [place] coronary artery of [place] heart without angina pectoris 11/20/2018 Sciatica of [...] as of this encounter (statuses as of 10/23/2024) Resolved Problems Problem Noted Date Diagnosed Date [...] as of this encounter (statuses as of 10/23/2024) Immunizations Name Administration Dates Next Due COVID-19 mRNA, LNP-s, No Pre serve, 2-Dose Series (Moderna) 10/23/2020,09/28/2020 COVID-19, MRNA-LNP, PF, 30 M CG/0.3 mL, 12 YRS AND ABOVE, IM (Global Locate-Comirnat) 06/04/2023,08/07/2022 COVID-19, mRNA, LNP-s, PF, B ooster, [...] Date Recorded PHQ Adult Total Score 0 09/02/2024 Hunger Vital Sign Answer Date Recorded Within the past 12 months, y ou worried that your food would run out before you got the money to buy more. Never true 09/02/19 25 Within the past 12 months, t he food you bought just didn't last and you didn't have money to get more. Never true 09/02/2024 Childcare Answer Date Recorded Do you feel overwhelmed with taking care of a child, family member or friend? No 09/02/2024 Does your family need help f inding childcare? (Household - for ages 0-17 years) Not on file 09/02/2024 Clothing Answer Date Recorded Have you been unable to get clothing when it was really needed? No 09/02/2024 Is your family able to get c lothes or diapers when needed? (Household - for ages 0-17 years) Not on file 09/02/2024 Personal Safety Answer Date Recorded Do you feel unsafe or have concerns for your saf ety? No 09/02/2024 Do you have concerns for you r family's safety? (Household - for ages 0-17 years) Not on file 09/02/2024 Utilities Answer Date Recorded Do you have trouble paying y our heating, water, or electric bill? No 09/02/2024 Is your family able to pay t he heat, water, or electric bill? (Household - for ages 0-17 years) Not on file 09/02/2024 Does your family have access to good internet? (Household - for ages 0-17 years) Not on file 09/02/2024 Employment Status Answer Date Recorded Are you unemployed or without regular income? No 09/02/2024 Does the household have a re gular source of income? (Household - for ages 0-17 years) Not on file 09/02/2024 Social Connections Answer Date Recorded How often do you feel lonely or isolated from th ose around you? Never 09/02/2024 Financial Resource Strain Answer Date R ecorded Do you have any trouble payi ng for your medications, or do you think you might in the future? No 09/02/2024 Does your family have troubl e paying for medicine? (Household - for ages 0-17 years) Not on file 09/02/2024 Transportation Needs Answer Date Record ed Do you have trouble getting a ride to medical visits or work? (Adult - for ages 18 years and over) Not on file 09/02/2024 Does your family have a hard time getting a ride to doctors visits? (Household - for ages 0-17 years) Not on file 09/02/2024 Has lack of transportation k ept you from medical appointments, meetings, work, or from getting things needed for daily living? Check all that apply. No 09/02/2024 Do you (or your family) have trouble finding or paying for a ride (transportation)? (Household - for ages 0-17 years) Not on file 09/02/2024 Housing Stability Answer Date Recorded Do you currently live in a s helter or have no steady place to sleep at night? No 09/02/2024 Do you think you are at risk of becoming homeless? (Adult - for ages 18 years and over) Not on file 09/02/2024 Does your family worry about paying for your home or becoming homeless? (Household - for ages 0-17 years) Not on file 0 09/02/2024 Are you homeless or worried that you might be in the future? No 09/02/2024 Are you (or your family) casper eless or worried that you might be in the future? (Household - for ages 0-17 years) Not on file Food Insecurity Answer Date Recorded Do you need food for this week? No 09/02/2024 Are you able to get enough f ood for your family? (Household - for ages 0-17 years) Not on file 09/02/2024 Does your family need food t his week? (Household - for ages 0-17 years) Not on file 09/02/2024 Do you always have enough fo od for your family? (Household - for ages 0-17 years) Not on file 09/02/2024 Food Insecurity Answer Date Recorded Within the past 12 months, y ou worried that your food would run out before you got the money to buy more. Never true 09/02/19 25 Within the past 12 months, t he food you bought just didn't last and you didn't have money to get more. Never true 09/02/2024 Do you need food for this week? No 09/02/2024 Sex and Gender Information Value Date Recorded Sex Assigned at Not on file Legal Sex Male 5:57 AM EST Gender Identity Male 08/06/2023 11:48 AM EST Sexual Orientation Straight 10/04/2020 10 :21 AM EST Occupation Industry Job Start Date Job End Date unemployed since October, Not on file Not on file Not on file documented as of this encounter Progress Notes * Suzi Fernandez MD - 10/23/2024 1:27 PM EST Suzi Fernandez MD, 1:27 PM 10/23/2024 Ta od 18; os 17 mm Hg 10/23/2024 Nurse 's note reviewed + AAO x3, mood intact Mood/affect wnl -EYE EXAM OU- lids adnexa: blepharitis EOM full CONVF Full ou 10/23/2024 conj: no injection cornea: clear / No KS ou -- A/C: deep/ quiet Iris ( -) TID ou Pupil + equal ou, (-) apd dolores: 2+ NS and 2 + elisha os , od trace psc , os 2-3 + psc DFE ou C/D OD: 0.55 OS 0.8 Vitreous wnl ou macular: wnl ou peripheral retinal, vessel: flat ou =Last DFE 10/23/2024 Gonioscopy: HF24-2 OD OS Disc photos Fx of Glaucoma: no Tmax: (?) mm Hg SOC. Issue: - [place] from [facility] A/P: Ref by optomMaia, 10/23/2024 Dx: -OAG ou 2 to c/d 10/23/2024 -no hx of eye sx or laser ou 10/23/2024 -not on steroid, risk with gl. Iop, total blindness... informed 10/23/2024 - cat os > od psc os > od with mild dil ou 10/23/2024 -AR od -1.00+3.50x13; os pl +1.01n758 10/23/2024 -RODRIGUEZ ou 10/23/2024 -stent 2012 ------eliq---- -no ac-zmaang-cib- 10/23/2024 Currt eye meds: No Rx: -Dx of gl. & Rx options including observe, gl. Meds, laser( LPI, SLT, ELECTRICAL PROSPECTING SUPERVISOR...) , sx.. Now or in the future, pt needs life time follow up, compliance to appt and eye meds..fail to compliance f/u and meds... may cause further loss of vision, or total blindness. Office/ hospital has 24 hr application dba coverage for any emergency situation. d/w pt 10/23/2024 -here for cat sx . Va blurry for more than 2 yrs unable to fit glass. - iop ok -- pt deferred self pay iol -- DFE ou psc cat os > od 10/23/2024 F/U: -dr fernandez at [facility] 2 appts --1 iol k ou --2 iop / sign up cat sx os Consult of (+) meds, ses ,(+) laser-LPI , SLT, ELECTRICAL PROSPECTING SUPERVISOR,or & (+) Sx Rx options of above Dx. Suzi Fernandez MD Dept. of Ophthalmology, [facility], [place], [place] documented in this encounter Nursing Notes * Antonette Cardenas TECH - 10/23/2024 1:45 PM EST Cataract Visual Function questionnaire was completed by patient. Transcribed by [employer] Parker/Nurse. Are you have difficulty reading small print, such as medicine bottle labels, a telephone book or food labels? Moderate - 2 Reading a newspaper or a book? Moderate - 2 Reading a large-print book or large-print newspaper, or numbers on a telephone? A little - 3 Recognizing people when they are close to you? None - 4 Seeing steps, stairs or curbs?A little - [address], [address] or store signs? Great Deal - 1 Doing fine handwork like sewing, knitting, crocheting or carpentry? A little - 3 Writing checks or filling out forms? A little - 3 Playing games such as bingo, dominos, card games or mahjong? A little - 3 Taking part in sports like bowling, handball, tennis or golf? Unable to do - 0 Cooking? Moderate - 2 Watching TV? A little - [address] a car? yes How much difficulty do you have driving during the day because of your vision? Great Deal - 1 How much difficulty do you have driving during the night because of your vision? Great Deal - 1 Have you previously driven a car but since stopped? no When did you stop driving? N/A Why did you stop driving? N/A None: x 4 = A little: x 3 = Moderate: x 2 = Great Deal: x 1 = Unable : 0 Final Score: (F / C ) x 25 = * Antonette Cardenas TECH - 10/23/2024 1:25 PM EST Mark Miner is a 74 year old male who presents for cataract evaluation. Last Visit: Visit date not found (in office), Visit date not found (telemedicine) He currently states that he is having a trouble with NV and states that he has trouble with glare from headlights. Are you diabetic? No Current Ophthalmic Medications: None Referred by: Dr. Leahy COMPREHENSIVE OCULAR HISTORY Any history in yourself or blood related family of: -Diabetes- No -Diabetic Retinopathy- No -High Blood Pressure- Family -Heart Disease- Self -Thyroid Disease- No -Blindness- No -Macular Degeneration- No -Retinal Detachment- No -Glaucoma/Pressure in the Eye- Family -Chronic Problem Headaches or Migraines- No -Have you ever had any major surgery or serious injury of or around the eyes- no -Are your eyes chronically- N/A VA, confrontational field, glass RX, and pachy can be found in ophthalmology exam. documented in this encounter Plan of Treatment Upcoming Encounters Date Type Department Care Team (Late st Contact Info) Description 12/10/2024 11:15 AM EDT Orders Only [address] [address] [employer] [facility] [address] [place] [address] 12/10/2024 11:45 AM EDT Office Visit [facility] [address] [place] [address] Suzi Fernandez MD [address] [place] [address] 03/25/2025 11:30 AM EDT Office Visit Family Practice, [place] [address] [place] [phone] Maia Oliva DO [address] [facility] [place] [address] 04/21/2025 11:00 AM EDT Office Visit Cardiology, [facility] [address] [place] [address] Meera Nolasco PA-C [address] [facility] [place] [address] 09/07/2025 10:00 AM EST Nurse Only Ancillary Department, [address] [place] [phone] Chris Nurse Annual Wellness [address] [place] [phone] Scheduled Orders Name Type Priority Associated Diagnoses Orde r Schedule GONIOSCOPY Procedures Routine Primary open angle glaucoma of both eyes, moderate stage Ordered: 10/23/2024 Scheduled Procedures Name Priority Associated Diagnoses Date/Ti [...] Adult Wellness Visit 08/13/2025 08/13/2024, 08/06/20 23 Albumin/Creatinine Ratio 08/14/202508/14/2 024, 08/16/2023, 05/09/2022, Additional history exists CKD HGB USE SMARTSET 34017 08/14/202508/14, 09/06/2023, 08/16/2023, Additional history exists CKD PHOS USE SMARTSET 03001 08/14/202507/27, 08/16/2023, 04/07/2021, Additional history exists Depression Screening 09/02/2025 09/02/2024, 08/13/20 24 Cologuard 09/20/2026 09/20/2023, 08/27, 09/10/2023, Additional history exists Colonoscopy 03/03/2029 03/03/2024, 07/0 03/2024, 10/24/2007 Colorectal Cancer Screening 03/03/2029 DTap/Tdap Vaccines (2 - Td or Tdap) 03/21/2029 03/21/2019 Zoster Vaccines Completed 07/20/2020, 12/2019, 04/02/2020, Additional history exists Pneumococcal Vaccine: 50+ Years Completed 10/24/2023, 03/21/2019, [...] on patient's age to complete this topic Meningitis B Vaccine (Bexsero/Trumemba) Aged Out No longer eligible based on patient's age to complete this topic documented as of this encounter Medical Devices Not on filedocumented as of this encounter Visit Diagnoses Diagnosis Posterior subcapsular polar senile cataract of both eyes- Primary Primary open angle glaucoma of both eyes, moderate stage Dry eyes, bilateral Tear film insufficiency, unspecified Presbyopia Senile nuclear cataract, bilateral documented in this encounter Care Teams Regional Production Manager Relationship Specialty Start Date End Date Maia Oliva DO PCP - General Family Medicine 11/18/18 documented as of this encounter
--- OUTSIDE RECORDS SUMMARY | 2024-11-30 16:44 | External Medical Summary | Summary of Care ---
Author Name Unknown Organization [facility] Address [address] [facility] [place] [address] Phone [phone] Care Team Providers Care Acute Care Registered Nurse Name Role Phone Mckenna Oliva DO Primary Care Provider [phone] Reason for Visit * Reason Comments Medication Refill Encounter Details Date Type Department Care Team (Late st Contact Info) Description [facility] [address] [place] [phone] Mckenna Oliva DO [address] [place] [phone] Dyslipidemia, goal LDL below 70 Allergies Active Allergy Reactions Criticality Noted Date Comments Neomycin-Polymyxin B Gu 01/15/2013 Synthetic antibiotic- pt can not list name at this time Statins Muscle pain 09/10/2018 documented as of this encounter (statuses as of 10/10/2024) Medications MULTIVITAMINS PO TABS 1 tablet daily Active Coenzyme Q10 100 MG Tablet 200mg daily 6 Active aspirin 81 MG chewable tabletIndications: ASCVD (arteriosclerotic cardiovascular disease),S/P angioplasty with stent,Old myocardial infarct Take 1 Tab by mouth daily. With food. 1 Tab 9 Active Adult Blood Pressure Cuff Lg KitIndications:Hyp ertensive kidney disease with stage 3a chronic kidney disease (HCC) Use blood pressure cuff daily. 1 Kit 0 Active Pain-Off 250-250-65 MG Oral Tablet (Aspirin-Acetamino phen-Caffeine 250-250-65 mg per tab) as needed for Other (back pain). Active Losartan Potassium 25 MG Oral Tablet (Cozaar)Indication s:Hypertensive kidney disease with stage 3a chronic kidney disease (HCC) Take 1 Tablet by mouth in the morning. 5 Active Ezetimibe 10 MG Oral Tablet (Zetia)Indications :Dyslipidemia, goal LDL below 70 Take 1 Tablet by mouth at bedtime. 90 Tablet 3 5 Active Doxazosin Mesylate 2 MG Oral Tablet (Cardura)Indicatio ns:BPH with obstruction/lower urinary tract symptoms Take 1 Tablet by mouth in the morning. 100 Tablet 2 10/08/2024 10:09 AM EST 5 Active Metoprolol Succinate ER 25 MG Oral Tablet Extended Release 24 Hour (toPROL XL) Take 1 Tablet by mouth in the morning. 90 Tablet 3 09/25/2024 5:07 PM EST 5 Active Apixaban 5 MG Oral Tablet (Eliquis) Take 1 Tablet by mouth in the morning and 1 Tablet before bedtime. 180 Tablet 3 09/25/2024 5:07 PM EST 5 Active Atorvastatin Calcium 10 MG Oral Tablet (Lipitor)Indicatio ns:Dyslipidemia, goal LDL below 70 Take 1 Tablet by mouth in the morning. 100 Tablet 2 5 Active Atorvastatin Calcium 10 MG Oral Tablet (Lipitor)Indicatio ns:Dyslipidemia, goal LDL below 70 Take 1 Tablet by mouth in the morning. 90 Tablet 5 06/27/2024 2:09 PM EDT 4 025 Discontin ued(Refil l) documented as of this encounter (statuses as of 10/10/2024) Active Problems Problem Noted Date Diagnosed Date Atrial flutter with rapid ventricular response 0 [...] 70 10/16/2019 Coronary artery disease invo lving [place] coronary artery of [place] heart without angina pectoris 11/20/2018 Sciatica of [...] as of this encounter (statuses as of 10/10/2024) Resolved Problems Problem Noted Date Diagnosed Date [...] as of this encounter (statuses as of 10/10/2024) Immunizations Name Administration Dates Next Due COVID-19 [...] encounter Miscellaneous Notes * Telephone Encounter - Daren Sepulveda [facility] - 10/10/2024 6:06 PM ESTSigned Prescriptions: Disp Refills Atorvastatin Calcium 10 MG Oral Tablet (Li*100 Ta*2 Sig: Take 1 Tablet by mouth in the morning.Authorizing Provider: MCKENNA OLIVA User: DAREN MCKEON documented in this encounter Plan of Treatment Upcoming Encounters Date Type Department Care Team (Late st Contact Info) Description 10/13/2024 11:00 AM EST Office Visit Cardiology, [address] [place] [address] Meera Nolasco PA-C [address] [place] [address] 03/25/2025 11:30 AM EDT Office Visit Family Practice, [address] [place] [address] Mckenna Oliva, DO [address] [facility] [place] [phone] 09/07/2025 10:00 AM EST Nurse Only [facility] [place] [facility] [address] [facility] [place] [phone] Chris, Nurse Annual Wellness [address] [place] [phone] Scheduled Procedures Name Priority Associated Diagnoses Date/Ti me COLONOSCOPY FLEXIBLE PROXIMA L DIAGNOSTIC Recall History of colonic polyps Health Maintenance Due Date Last Done Comments Fecal Occult Blood Test 1995 Sigmoidoscopy 1995 COVID-19 Vaccine ( season) 2024 06/04/2023, 08/07/2022, 06/22/2021, Additional history exists Influenza Vaccine (FLU shot) (#1) 2024 06/04/2023, 07/20/2020, 10/13/2013 *NEPHROLOGY REFERRAL DUE TO RESISTANT HTN 09/27/2024 GFR 02/12/2025 08/14/2024, 02/24, 10/24/2023, Additional history exists Adult Wellness Visit 08/13/2025 08/13/2024, 08/06/20 23 Albumin/Creatinine Ratio 08/14/202508/14/2 024, 08/16/2023, 05/09/2022, Additional history exists CKD HGB USE SMARTSET 85562 08/14/202508/14, 09/06/2023, 08/16/2023, Additional history exists CKD PHOS USE SMARTSET 02981 08/14/202507/27, 08/16/2023, 04/07/2021, Additional history exists Depression [...] Visit Diagnoses Diagnosis Dyslipidemia, goal LDL below 70 Other and unspecified hyperlipidemia documented in this encounter Care Teams Acute Care Registered Nurse Relationship Specialty Start Date End Date Mckenna Oliva DO PCP - General Family Medicine 11/18/18 documented as of this encounter
--- OUTSIDE RECORDS SUMMARY | 2024-11-30 16:44 | External Medical Summary | Summary of Care ---
Author Name Unknown Organization [facility] Address [address] [facility] [place] [address] Phone [phone] Care Team Providers Care Engineering Technology Instructor Name Role Phone Maia Oliva DO Primary Care Provider [phone] Reason for Visit * Reason Onset Date Comments Advice 08/30/2024 Meera Wiseman Encounter Details Date Type Department Care Team (Late st Contact Info) Description 08/30/2024 Telephone Cardiology, [facility] [address] [place] [address] Meera Nolasco PA-C [address] [employer] [address] [employer] [place] [address] Advice (Meera Nolasco PA-C) Allergies Active Allergy Reactions Criticality Noted Date Comments Neomycin-Polymyxin B Gu 01/15/2013 Synthetic antibiotic- pt can not list name at this time Statins Muscle pain 09/10/2018 documented as of this encounter (statuses as of 11/29/2024) Medications MULTIVITAMINS PO TABS 1 tablet daily Active Coenzyme Q10 100 MG Tablet 200mg daily 02/23/20 16 Active Adult Blood Pressure Cuff Lg KitIndications:Hy pertensive kidney disease with stage 3a chronic kidney disease (HCC) Use blood pressure cuff daily. 1 Kit 05/28/20 20 Active Pain-Off 250-250-65 MG Oral Tablet (Aspirin-Acetamin ophen-Caffeine 250-250-65 mg per tab) as needed for Other (back pain). Active Losartan Potassium 25 MG Oral Tablet (Cozaar)Indicatio ns:Hypertensive kidney disease with stage 3a chronic kidney disease (HCC) Take 1 Tablet by mouth in the morning and 1 Tablet before bedtime. 09/01/19 25 Active nitroglycerin (NITROSTAT) 0.4 MG SUBLIndications:A SCVD (arteriosclerotic cardiovascular disease),Old myocardial infarct One tablet under tongue if needed for chest pain. May repeat 3 times. If chest pain continues, call 911 25 Tab 3 02/23/20 16 025 Discontinued(M edication List Clean Up) aspirin 81 MG chewable tabletIndications :ASCVD (arteriosclerotic cardiovascular disease),S/P angioplasty with stent,Old myocardial infarct Take 1 Tab by mouth daily. With food. 1 Tab 11/21/19 19 025 Discontinued Albuterol Sulfate HFA 108 (90 Base) MCG/ACT Inhalation Aerosol SolutionIndicatio ns:Bronchitis, complicated Inhale by mouth 2 Puffs every 6 hours as needed for Wheezing. 18 g 1 06/16/20 22 025 Discontinued(P atient preference/dis continuation) Atorvastatin Calcium 10 MG Oral Tablet (Lipitor)Indicati ons:Dyslipidemia, goal LDL below 70 Take 1 Tablet by mouth in the morning. 90 Tablet 5 4 2:09 PM EDT 09/06/19 24 025 Discontinued(R efill) NATURAL SUPPLEMENT Gel Beets 025 Discontinued(M edication List Clean Up) Losartan Potassium 25 MG Oral Tablet (Cozaar)Yio ns:Hypertensive kidney disease with stage 3a chronic kidney disease (HCC) Take 1 Tablet by mouth in the morning and 1 Tablet before bedtime. 180 Tablet 3 5 3:08 PM EST 09/27/19 24 025 Discontinued(R efill) Doxazosin Mesylate 2 MG Oral Tablet (Cardura)Jaketi ons:BPH with obstruction/lower urinary tract symptoms Take 1 Tablet by mouth in the morning. 100 Tablet 2 4 2:15 PM EST 11/15/19 24 025 Discontinued(R efill) Ezetimibe 10 MG Oral Tablet (Zetia)Indication s:Dyslipidemia, goal LDL below 70 Take 1 Tablet by mouth at bedtime. 90 Tablet 3 5 3:08 PM EST 02/13/20 24 025 Discontinued(R efill) amLODIPine Besylate 5 MG Oral Tablet (Norvasc) Take 1 Tablet by mouth in the morning and 1 Tablet before bedtime. 08/29/19 25 025 Discontinued(R efill) Apixaban 5 MG Oral Tablet (Eliquis) Take 1 Tablet by mouth in the morning and 1 Tablet before bedtime. 08/30/19 25 025 Discontinued(R efill) Metoprolol Succinate ER 25 MG Oral Tablet Extended Release 24 Hour (toPROL XL) Take 1 Tablet by mouth in the morning. 08/30/19 25 025 Discontinued(R efill) amLODIPine Besylate 5 MG Oral Tablet (Norvasc) Take 1 Tablet by mouth every night at bedtime. 09/01/19 025 Discontinued(P atient preference/dis continuation) documented as of this encounter (statuses as of 11/29/2024) Active Problems Problem Noted Date Diagnosed Date [...] 70 10/16/2019 Coronary artery disease invo lving [place] coronary artery of [place] heart without angina pectoris 11/20/2018 Sciatica of [...] as of this encounter (statuses as of 11/29/2024) Resolved Problems Problem Noted Date Diagnosed Date [...] as of this encounter (statuses as of 11/29/2024) Immunizations Name Administration Dates Next Due COVID-19 mRNA, LNP-s, No Pre serve, 2-Dose Series (Moderna) 10/23/2020,09/28/2020 COVID-19, MRNA-LNP, PF, 30 M CG/0.3 mL, 12 YRS AND ABOVE, IM ([employer]-Comirnat) 06/04/2023,08/07/2022 COVID-19, mRNA, LNP-s, PF, B ooster, [...] 10 and older)(Boostrix) 03/21/2019 Varicella Zoster Vaccine Adult (Zostavax) 2016 Zoster Vaccine Recombinant (Shingrix) 07/20/2020 ,04/02/2020 documented [...] encounter Miscellaneous Notes * Telephone Encounter - Min Lyons LPN - 09/01/2024 2:32 PM EST Sent patient a hhgregg message to make aware. Medication list updated. * Telephone Encounter - Meera Nolasco PA-C - 09/01/2024 1:46 PM EST Hosp records reviewed. Admitted 08/29 with paroxysmal atrial fibrillation, converted to NSR. Discharged on metoprolol succinate 25 mg daily and eliquis 5 mg BID for anticoagulation/stroke prophylaxis. He must continue Eliquis. He will need to be careful about scrapes and cuts. Unless he is having GI bleeding or uncontrollable nosebleeds, no concerns. HR appears controlled. Likely not in afib again. BP is lower. Recommend reducing amlodipine to 5 mg - 1 tablet once per day (currently taking twice per day according to records/med list) * Telephone Encounter - Min Lyons LPN - 09/01/2024 10:24 AM EST Called patient and he stated his blood pressure since [facility] discharge has been running in the 110/50-60's with medication changes. He was lightheaded, dizzy and had blurry vision around 12:30 one day when BP was 105/59 with HR 65. He also is concerned with Eliquis as when he hunts and gets a scratchhe will have blooding running down his fingers. He is going to give the medication some time but wanted to make provider aware. Medication list updated. * Telephone Encounter - Albertina Aldana OSA - 08/30/2024 9:03 PM EST Person calling: Mark Miner Relationship to patient: Self Phone/Fax to return call: [phone] Reason for call(brief): Advice Pharmacy: NA Provider Name:Meera Nolasco PA-C Detailed message to office:Patient was discharged from [facility] on 08-30-2024 and has questions about his discharge medications. He would like a call from cardiology to go over this. He also was toldto schedule with cardiology for a hospital follow up. He said there was no specified time frame. I told him to keep the 10-13-2024 appointment already scheduled. Thank you, ANGEL Garza documented in this encounter Plan of Treatment Upcoming Encounters Date Type Department Care Team (Late st Contact Info) Description 12/10/2024 11:15 AM EDT Orders Only [facility] [address] [place] [address] Stanley, Biometry Tech [address] [place] [address] 12/10/2024 11:45 AM EDT Office Visit [facility] [address] [place] [address] Suzi Pinto MD [address] [place] [address] 03/25/2025 11:30 AM EDT Office Visit [address] [place] [phone] Maia Oliva DO [address] [place] [address] 04/21/2025 11:00 AM EDT Office Visit Cardiology, [facility] [address] [place] [phone] Meera Nolasco, ADAM [address] [place] [address] 09/07/2025 10:00 AM EST Nurse Only Ancillary Department, [facility] [address] [place] [phone] Chris Nurse Annual Wellness [address] [place] [address] Scheduled Procedures Name Priority Associated Diagnoses Date/Ti me COLONOSCOPY FLEXIBLE PROXIMA L DIAGNOSTIC Recall History of colonic polyps Health Maintenance Due Date Last Done Comments Fecal Occult Blood Test 1995 Sigmoidoscopy 1995 COVID-19 Vaccine ( season) 2024 06/04/2023, 08/07/2022, 06/22/2021, Additional history exists GFR 02/12/2025 08/14/2024, 02/24, 10/24/2023, Additional history exists Influenza Vaccine (FLU shot) (Season Ended) 2025 06/04/2023, 07/20/2020, 10/13/2013 Adult Wellness Visit 08/13/2025 08/13/2024, 08/06/20 23 Albumin/Creatinine Ratio 08/14/202508/14/2 024, 08/16/2023, 05/09/2022, Additional history exists CKD HGB USE SMARTSET 25263 08/14/202508/14, 09/06/2023, 08/16/2023, Additional history exists CKD PHOS USE SMARTSET 14347 08/14/202507/27, 08/16/2023, 04/07/2021, Additional history exists Depression [...] as of this encounter Visit Diagnoses Diagnosis Hypertensive kidney disease with stage 3a chronic kidney disease (HCC) documented in this encounter Care Teams Engineering Technology Instructor Relationship Specialty Start Date End Date Maia Oliva DO PCP - General Family Medicine 11/18/18 documented as of this encounter
--- OUTSIDE RECORDS SUMMARY | 2024-11-30 16:44 | External Medical Summary | Summary of Care ---
Author Name Unknown Organization [facility] Address [address] [facility] [place] [address] Phone [phone] Care Team Providers Care Pollution Control Technician Name Role Phone Maia Oliva DO Primary Care Provider + [phone] Reason for Visit * Reason Onset Date Comments Test Results 09/16/2024 Encounter Details Date Type Department Care Team (Late st Contact Info) Description [facility] [address] [place] [phone] Maia Oliva DO [address] [facility] [place] [id number] Test Results Allergies Active Allergy Reactions Criticality Noted Date Comments Neomycin-Polymyxin B Gu 01/15/2013 Synthetic antibiotic- pt can not list name at this time Statins Muscle pain 09/10/2018 documented as of this encounter (statuses as of 09/18/2024) Medications MULTIVITAMINS PO TABS 1 tablet daily Active Coenzyme Q10 100 MG Tablet 200mg daily 6 Active aspirin 81 MG chewable tabletIndications:A SCVD (arteriosclerotic cardiovascular disease),S/P angioplasty with stent,Old myocardial infarct Take 1 Tab by mouth daily. With food. 1 Tab 9 Active Adult Blood Pressure Cuff Lg KitIndications:Hype rtensive kidney disease with stage 3a chronic kidney disease (HCC) Use blood pressure cuff daily. 1 Kit 0 Active Atorvastatin Calcium 10 MG Oral Tablet (Lipitor)Indication s:Dyslipidemia, goal LDL below 70 Take 1 Tablet by mouth in the morning. 90 Tablet 5 06/27/2024 2:09 PM EDT 4 Active Pain-Off 250-250-65 MG Oral Tablet (Aspirin-Acetaminop hen-Caffeine 250-250-65 mg per tab) as needed for Other (back pain). Active Losartan Potassium 25 MG Oral Tablet (Cozaar)Indications :Hypertensive kidney disease with stage 3a chronic kidney disease (HCC) Take 1 Tablet by mouth in the morning. 5 Active Amoxicillin 500 MG Oral Capsule (Amoxil)Indications :Acute mucoid otitis media of left ear Take 1 Capsule by mouth in the morning and 1 Capsule at noon and 1 Capsule before bedtime. Do all this for 10 days. 30 Capsule 5 09/20/19 25 Active Ezetimibe 10 MG Oral Tablet (Zetia)Indications: Dyslipidemia, goal LDL below 70 Take 1 Tablet by mouth at bedtime. 90 Tablet 3 5 Active Doxazosin Mesylate 2 MG Oral Tablet (Cardura)Indication s:BPH with obstruction/lower urinary tract symptoms Take 1 Tablet by mouth in the morning. 100 Tablet 2 5 Active Metoprolol Succinate ER 25 MG Oral Tablet Extended Release 24 Hour (toPROL XL) Take 1 Tablet by mouth in the morning. 90 Tablet 3 5 Active Apixaban 5 MG Oral Tablet (Eliquis) Take 1 Tablet by mouth in the morning and 1 Tablet before bedtime. 180 Tablet 3 5 Active documented as of this encounter (statuses as of 09/18/2024) Active Problems Problem Noted Date Diagnosed Date [...] 70 10/16/2019 Coronary artery disease invo lving [place] coronary artery of [place] heart without angina pectoris 11/20/2018 Sciatica of [...] as of this encounter (statuses as of 09/18/2024) Resolved Problems Problem Noted Date Diagnosed Date [...] as of this encounter (statuses as of 09/18/2024) Immunizations Name Administration Dates Next Due COVID-19 [...] ages 0-17 years) Not on file 09/02/2024 Sex and Gender Information Value Date [...] encounter Miscellaneous Notes * Telephone Encounter - Maia Oliva DO - 09/18/2024 10:58 AM EST No kidney stone seen. Possible cyst on the R kidney. How is his pain? * Telephone Encounter - Aicha Rodríguez LPN - 09/16/2024 2:41 PM EST Phone call with patient He is anxiously awaiting renal US results, would like to hear back on results Reporting persistent L lower back pain intermittently throughout the day Approx 10-12 episodes daily each lasting "couple seconds" Results in epic documented in this encounter Plan of Treatment Upcoming Encounters Date Type Department Care Team (Late st Contact Info) Description 10/13/2024 11:00 AM EST Office Visit Cardiology, [facility] [address] [place] [address] Meera Nolasco PA-C [address] [place] [address] 03/25/2025 11:30 AM EDT [facility] [address] [place] [phone] Maia Oliva, DO [address] [place] [address] 09/07/2025 10:00 AM EST Nurse Only Ancillary Department, [address] [place] [phone] Chris, Nurse Annual Wellness [address] [place] [address] Scheduled Procedures Name Priority Associated Diagnoses Date/Ti [...] Additional history exists CKD HGB USE SMARTSET 33985 08/14/202508/14, 09/06/2023, 08/16/2023, Additional history exists CKD PHOS USE SMARTSET 43046 08/14/202507/27, 08/16/2023, 04/07/2021, Additional history exists Depression [...] filedocumented as of this encounter Care Teams Pollution Control Technician Relationship Specialty Start Date End Date Maia Oliva DO PCP - General Family Medicine 11/18/18 documented as of this encounter
--- OUTSIDE RECORDS SUMMARY | 2024-11-30 16:44 | External Medical Summary | Summary of Care ---
Author Name Unknown Organization [facility] Address [address] [place] [address] Phone [phone] Care Team Providers Care Fiber Picker Name Role Phone Mckenna Hayden DO Primary Care Provider + [phone] Reason for Visit * Reason Onset Date Comments Medication Refill 09/16/2024 Encounter Details Date Type Department Care Team (Late st Contact Info) Description 09/16/2024 Refill Care Coordination and Integration [address] [facility] [place] [id number] Mckenna Hayden DO [address] [place] [address] Dyslipidemia, goal LDL below 70; BPH with obstruction/lower urinary tract symptoms Allergies Active Allergy Reactions Criticality Noted Date [...] 4 Active Pain-Off 250-250-65 MG Oral Tablet (Aspirin-Acetamino phen-Caffeine 250-250-65 mg per tab) as needed for Other (back pain). Active Losartan Potassium 25 MG Oral Tablet (Cozaar)Indication s:Hypertensive kidney disease with stage 3a chronic kidney disease (HCC) Take 1 Tablet by mouth in the morning. 5 Active Amoxicillin 500 MG Oral Capsule (Amoxil)Indication s:Acute mucoid otitis media of left ear Take 1 Capsule by mouth in the morning and 1 Capsule at noon and 1 Capsule before bedtime. Do all this for 10 days. 30 Capsule 5 025 Active Ezetimibe 10 MG Oral Tablet (Zetia)Indications [...] before bedtime. 180 Tablet 3 5 Active Doxazosin Mesylate 2 MG Oral Tablet (Cardura)Indicatio ns:BPH with obstruction/lower urinary tract symptoms Take 1 Tablet by mouth in the morning. 100 Tablet 2 07/12/2024 2:15 PM EST 4 025 Discontin ued(Refil l) Ezetimibe 10 MG Oral Tablet (Zetia)Indications :Dyslipidemia, goal LDL below 70 Take 1 Tablet by mouth at bedtime. 90 Tablet 3 08/29/2024 3:08 PM EST 4 025 Discontin ued(Refil l) Apixaban 5 MG Oral Tablet (Eliquis) Take 1 Tablet by mouth in the morning and 1 Tablet before bedtime. 5 025 Discontin ued(Refil l) Metoprolol Succinate ER 25 MG Oral Tablet Extended Release 24 Hour (toPROL XL) Take 1 Tablet by mouth in the morning. 5 025 Discontin ued(Refil l) documented as of [...] 70 10/16/2019 Coronary artery disease invo lving [place] coronary artery of [place] heart without angina pectoris 11/20/2018 Sciatica of [...] 09/02/2024 Does the household have a re lar [...] encounter Miscellaneous Notes * Telephone Encounter - Mckenna Hayden DO - 09/18/2024 9:34 AM ESTSigned Prescriptions: Disp Refills Ezetimibe 10 MG Oral Tablet (Zetia) 90 Tab*3 Sig: Take 1 Tablet by mouth at bedtime. Authorizing Provider: MCKENNA HAYDEN Doxazosin Mesylate 2 MG Oral Tablet (Cardu*100 Ta*2 Sig: Take 1 Tablet by mouth in the morning. Authorizing Provider: KOPINSKI, MCKENNA L Metoprolol Succinate ER 25 MG Oral Tablet *90 Tab*3 Sig: Take 1 Tablet by mouth in the morning. Authorizing Provider: MCKENNA HAYDEN Apixaban 5 MG Oral Tablet (Eliquis) 180 Ta*3 Sig: Take 1 Tablet by mouth in the morning and 1 Tablet before bedtime. Authorizing Provider: MCKENNA HAYDEN * Telephone Encounter - Aicha Rodríguez LPN - 09/16/2024 2:40 PM EST Spoke to patient in follow up for case mgmt Patient requesting refills on his medications Would like 90 day supply sent to [facility] Please review and approve Thank you documented in this encounter Plan of Treatment Upcoming Encounters Date Type Department Care Team (Late st Contact Info) Description 10/13/2024 11:00 AM EST Office Visit Cardiology, [facility] [address] [place] [address] Meera Nolasco PA-C [address] [place] [place] [address] 03/25/2025 11:30 AM EDT Office Visit Family Practice, [facility] [place] [address] [place] [phone] Mckenna Hayden DO [address] [place] [address] 09/07/2025 10:00 AM EST Nurse Only Ancillary Department, [facility] [place] [address] [place] [phone] Chris Nurse Annual Wellness [address] [place] [address] Scheduled Procedures Name Priority Associated Diagnoses Date/Ti [...] Visit 08/13/2025 08/13/2024, 08/06/20 23 Albumin/Creatinine Ratio 08/14/202508/14/ 024, 08/16/2023, 05/09/2022, Additional history exists CKD HGB USE SMARTSET 71911 08/14/202508/14, 09/06/2023, 08/16/2023, Additional history exists CKD PHOS USE SMARTSET 52917 08/14/202507/27, 08/16/2023, 04/07/2021, Additional history exists Depression [...] LDL below 70 Other and unspecified hyperlipidemia BPH with obstruction/lower urinary tract symptoms Hypertrophy of prostate with urinary obstruction and other lower urinary tract symptoms (LUTS) documented in this encounter Care Teams Fiber Picker Relationship Specialty Start Date End Date Mckenna Hayden DO PCP - General Family Medicine 11/18/18 documented as of this encounter
--- OUTSIDE RECORDS SUMMARY | 2024-11-30 16:44 | External Medical Summary | Summary of Care ---
Author Name Unknown Organization [facility] Address [address] [facility] [place] [address] Phone [phone] Care Team Providers Care Paver Layer Name Role Phone Pj Maia Bridget CAMPBELL Primary Care Provider Encounter Details Date Type Department Care Team (Late st Contact Info) Description 09/15/2024 Population Health External Data Unspecified Department Allergies Active Allergy Reactions Criticality Noted Date Comments Neomycin-Polymyxin B Gu 01/15/2013 Synthetic antibiotic- pt can not list name at this time Statins Muscle pain 09/10/2018 documented as of this encounter (statuses as of 09/15/2024) Medications MULTIVITAMINS PO TABS 1 tablet daily [...] as needed for Other (back pain). Active Doxazosin Mesylate 2 MG Oral Tablet (Cardura)Indication s:BPH with obstruction/lower urinary tract symptoms Take 1 Tablet by mouth in the morning. 100 Tablet 2 07/12/2024 2:15 PM EST 4 Active Ezetimibe 10 MG Oral Tablet (Zetia)Indications: Dyslipidemia, goal LDL below 70 Take 1 Tablet by mouth at bedtime. 90 Tablet 3 08/29/2024 3:08 PM EST 4 Active Apixaban 5 MG Oral Tablet (Eliquis) Take 1 Tablet by mouth in the morning and 1 Tablet before bedtime. 5 Active Metoprolol Succinate ER 25 MG Oral Tablet Extended Release 24 Hour (toPROL XL) Take 1 Tablet by mouth in the morning. 5 Active Losartan Potassium 25 MG Oral Tablet [...] days. 30 Capsule 5 09/20/19 25 Active documented as of this encounter (statuses as of 09/15/2024) Active Problems Problem Noted Date Diagnosed Date [...] 70 10/16/2019 Coronary artery disease invo lving [place] coronary artery of [place] heart without angina pectoris 11/20/2018 Sciatica of [...] as of this encounter (statuses as of 09/15/2024) Resolved Problems Problem Noted Date Diagnosed Date [...] serious comorbidity 04/20/2014 Overview (06/12/2018): bmi= 38.37 8/25/14 ICD-10 update of inactive diagnosis Severe obesity [...] as of this encounter (statuses as of 09/15/2024) Immunizations Name Administration Dates Next Due COVID-19 [...] 11:00 AM EST Office Visit Cardiology, [facility] [address] [place] [address] Meera Nolasco PA-C [address] [place] [address] 03/25/2025 11:30 AM EDT Office Visit Family Practice, [facility] [place] [address] [place] [phone] Maia Oliva DO [address] [place] [address] 09/07/2025 10:00 AM EST Nurse Only Ancillary Department, [facility] [place] [address] [place] [phone] Chris, Nurse Annual Wellness [address] [place] [address] Scheduled Procedures Name Priority Associated Diagnoses Date/Ti [...] Additional history exists CKD HGB USE SMARTSET 21193 08/14/202508/14, 09/06/2023, 08/16/2023, Additional history exists CKD PHOS USE SMARTSET 33248 08/14/202507/27, 08/16/2023, 04/07/2021, Additional history exists Depression [...] filedocumented as of this encounter Care Teams Paver Layer Relationship Specialty Start Date End Date Maia Oliva DO PCP - General Family Medicine 11/18/18 documented as of this encounter
--- OUTSIDE RECORDS SUMMARY | 2024-11-30 16:44 | External Medical Summary | Summary of Care ---
Author Name Unknown Organization [facility] Address [address] [place] [address] Phone [phone] Care Team Providers Care Head Orthopedic Team Physician Name Role Phone Omarkristin Maiamesfin Gill DO Primary Care Provider [phone] Reason for Visit * Reason Comments Cataracts 74 y/o male here for cataract evaluation. 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*; Primary open angle glaucoma of both eyes, moderate stage; Dry eyes, bilateral; Presbyopia; Senile nuclear cataract, bilateral Allergies Active Allergy Reactions Criticality Noted Date Comments Neomycin-Polymyxin B Gu 01/15/2013 Synthetic antibiotic- pt can not list name at this time Statins Muscle pain 09/10/2018 documented as of this encounter (statuses as of 10/29/2024) Medications MULTIVITAMINS PO TABS 1 tablet daily [...] as of this encounter (statuses as of 10/29/2024) Active Problems Problem Noted Date Diagnosed Date [...] 70 10/16/2019 Coronary artery disease invo lving [place] coronary artery of [place] heart without angina pectoris 11/20/2018 Sciatica of [...] as of this encounter (statuses as of 10/29/2024) Resolved Problems Problem Noted Date Diagnosed Date [...] as of this encounter (statuses as of 10/29/2024) Immunizations Name Administration Dates Next Due COVID-19 mRNA, LNP-s, No Pre serve, 2-Dose Series (Moderna) 10/23/2020,09/28/2020 COVID-19, MRNA-LNP, PF, 30 M CG/0.3 mL, 12 YRS AND ABOVE, IM (ToonTime-Comirnat) 06/04/2023,08/07/2022 COVID-19, mRNA, LNP-s, PF, B ooster, [...] vessel: flat ou =Last DFE 10/23/2024 Gonioscopy: cbb 0ptm ou 10/23/2024 HF24-2 OD OS Disc photos Fx of Glaucoma: no Tmax: (?) mm Hg SOC. Issue: - [place] from [facility] A/P: Ref by optom, Maia Oliva, DO 10/23/2024 Dx: -OAG ou 2 to c/d 10/23/2024 -no hx of eye sx or laser ou 10/23/2024 -not on steroid, risk with gl. Iop, total blindness... informed 10/23/2024 - cat os > od psc os > od with mild dil ou 10/23/2024 -AR od -1.00+3.50x13; os pl +[id number] 10/23/2024 -RODRIGUEZ ou 10/23/2024 -stent 2012 ------eliq---- -no mi-qvdesu-dmu- 10/23/2024 Currt eye meds: No Rx: -Dx of gl. & Rx options including observe, gl. Meds, laser( LPI, SLT, TURF KEEPER...) , sx.. Now or in the future, pt needs life time follow up, compliance to appt and eye meds..fail to compliance f/u and meds... may cause further loss of vision, or total blindness. Office/ hospital has 24 hr carbonation equipment operator coverage for any emergency situation. d/w pt [...] (+) meds, ses ,(+) laser-LPI , SLT, TURF KEEPER,or & (+) Sx Rx options of above Dx. Suzi Fernandez MD Dept. of Ophthalmology, [facility], [place], [place] documented in this encounter Nursing Notes * Antonette Cardenas TECH - 10/23/2024 1:45 PM EST Cataract Visual Function questionnaire was completed by patient. Transcribed by Elementary School Tutor/Nurse. Are you have difficulty reading small print, [...] Description 12/10/2024 11:15 AM EDT Orders Only [address] [address] Tegan, Biometry [facility] [address] [place] [address] 12/10/2024 11:45 AM EDT Office Visit [facility] [address] [place] [address] Suzi Fernandez MD [address] [place] [address] 03/25/2025 11:30 AM EDT [facility] [phone] Miaa Oliva DO [address] [place] [address] 04/21/2025 11:00 AM EDT Office Visit Cardiology, [facility] [address] [facility] [place] [id number] Meera Nolasco PA-C [address] [facility] [place] [address] 09/07/2025 10:00 AM EST Nurse Only Ancillary Department, [facility] [place] [address] [place] [phone] Chris, Nurse [facility] [address] [place] [address] Scheduled Orders Name Type Priority Associated Diagnoses [...] Additional history exists CKD HGB USE SMARTSET 01841 08/14/202508/14, 09/06/2023, 08/16/2023, Additional history exists CKD PHOS USE SMARTSET 29784 08/14/202507/27, 08/16/2023, 04/07/2021, Additional history exists Depression [...] bilateral documented in this encounter Care Teams Head Orthopedic Team Physician Relationship Specialty Start Date End Date Maia Oliva DO PCP - General Family Medicine 11/18/18 documented as of this encounter
--- OUTSIDE RECORDS SUMMARY | 2024-11-30 16:44 | External Medical Summary | Summary of Care ---
Author Name Unknown Organization [facility] Address [address] [facility] [place] [address] Phone [phone] Care Team Providers Care Chemist Steroids Name Role Phone Maia Oliva DO Primary Care Provider [phone] Reason for Visit * Reason Onset Date Comments Test Results 09/16/2024 Encounter Details Date Type Department Care Team (Late st Contact Info) Description [facility]20[facility] [address] [place] [phone] Maia Oliva DO [address] [facility] [place] [id number] Test Results Allergies Active Allergy Reactions Criticality [...] 70 10/16/2019 Coronary artery disease invo lving [place] coronary artery of [place] heart without angina pectoris 11/20/2018 Sciatica [...] encounter Miscellaneous Notes * Telephone Encounter - Anna Doherty LPN - 09/18/2024 3:50 PM EST Called pt, he states that he is not having any pain and he would call if any changes. He is aware that he has a possible cyst on the R kidney. * Telephone Encounter - Maia Oliva DO [...] Visit Cardiology, [facility] [address] [facility] [place] [address] Meera Nolasco PA-C [address] [place] [address] 03/25/2025 11:30 AM EDT Office Visit Family Practice, [facility] [address] [place] [address] Maia Oliva, DO [address] [place] [address] 09/07/2025 10:00 AM EST Nurse Only Ancillary Department, [place] [facility] [address] [place] [phone] Chris, Nurse [facility] Well[facility] [address] [facility] [place] [address] Scheduled Procedures Name Priority Associated Diagnoses Date/Ti [...] Additional history exists CKD HGB USE SMARTSET 32252 08/14/202508/14, 09/06/2023, 08/16/2023, Additional history exists CKD PHOS USE SMARTSET 07364 08/14/202507/27, 08/16/2023, 04/07/2021, Additional history exists Depression [...] filedocumented as of this encounter Care Teams Chemist Steroids Relationship Specialty Start Date End Date Maia Oliva DO PCP - General Family Medicine 11/18/18 documented as of this encounter
--- OUTSIDE RECORDS SUMMARY | 2024-11-30 16:44 | External Medical Summary | Summary of Care ---
Author Name Unknown Organization [facility] Address [address] [facility] [place] [place] [address] Phone [phone] Care Team Providers Care Production Helper Name Role Phone Maia Oliva DO Primary Care Provider [phone] Reason for Visit * Reason Comments Hospital Follow-Up Encounter Details Date Type Department Care Team (Late st Contact Info) Description 10/13/2024 11:00 AM EST Office Visit Cardiology, [facility] [address] [place] [phone] Meera Nolasco PA-C [address] [place] [phone] Paroxysmal atrial fibrillation (HCC)*; Dyslipidemia, goal LDL below 70; Hypertension goal BP (blood pressure) < 130/80; Coronary artery disease involving [place] coronary artery of [place] heart without angina pectoris Allergies Active Allergy Reactions Criticality Noted Date Comments Neomycin-Polymyxin B Gu 01/15/2013 Synthetic antibiotic- pt can not list name at this time Statins Muscle pain 09/10/2018 documented as of this encounter (statuses as of 10/13/2024) Medications MULTIVITAMINS PO TABS 1 tablet daily [...] 1 Tablet before bedtime. 09/01/19 25 Active Ezetimibe 10 MG Oral Tablet (Zetia)Indication s:Dyslipidemia, goal LDL below 70 Take 1 Tablet by mouth at bedtime. 90 Tablet 3 09/18/19 25 Active Doxazosin Mesylate 2 MG Oral Tablet (Cardura)Indicati ons:BPH with obstruction/lower urinary tract symptoms Take 1 Tablet by mouth in the morning. 100 Tablet 2 5 10:09 AM EST 09/18/19 25 Active Apixaban 5 MG Oral Tablet (Eliquis) Take 1 Tablet by mouth in the morning and 1 Tablet before bedtime. 180 Tablet 3 5 5:07 PM EST 09/18/19 25 Active Atorvastatin Calcium 10 MG Oral Tablet (Lipitor)Indicati ons:Dyslipidemia, goal LDL below 70 Take 1 Tablet by mouth in the morning. 100 Tablet 2 5 6:23 AM EST 10/10/19 25 Active aspirin 81 MG chewable tabletIndications :ASCVD (arteriosclerotic cardiovascular disease),S/P angioplasty with stent,Old myocardial infarct Take 1 Tab by mouth daily. With food. 1 Tab 11/21/19 19 025 Discontinued Metoprolol Succinate ER 25 MG Oral Tablet Extended Release 24 Hour (toPROL XL) Take 1 Tablet by mouth in the morning. 90 Tablet 3 5 5:07 PM EST 09/18/19 25 025 Discontinued(M edication List Clean Up) documented as of this encounter (statuses as of 10/13/2024) Active Problems Problem Noted Date Diagnosed Date Paroxysmal atrial fibrillation 10/13/2024 Atrial flutter with rapid ventricular response 0 09/10/2024 Asymptomatic bilateral carotid artery stenosis 0 04/30/2024 Dyslipidemia, goal LDL below 100 04/30/2024 Stage 3a chronic kidney disease 04/30/2024 Carotid occlusion, left 04/30/2024 Sacroiliitis, not elsewhere classified 09/19/202 2 Hx of nonmelanoma skin cancer 08/10/2020 Overview (08/11/2020): basal cell carcinoma (L malar cheek 12/2018, R shoulder 07/2020)) Hypertensive kidney disease with stage 3a chronic kidney disease 07/05/2020 Overview: Per CKD protocol Dyslipidemia, goal LDL below 70 10/16/2019 Coronary artery disease invo lving [place] coronary artery of [place] heart without angina pectoris 11/20/2018 Sciatica of [...] as of this encounter (statuses as of 10/13/2024) Resolved Problems Problem Noted Date Diagnosed Date [...] as of this encounter (statuses as of 10/13/2024) Immunizations Name Administration Dates Next Due COVID-19 mRNA, LNP-s, No Pre serve, 2-Dose Series (Moderna) 10/23/2020,09/28/2020 COVID-19, MRNA-LNP, PF, 30 M CG/0.3 mL, 12 YRS AND ABOVE, IM (Outlisten-Comirnaty) 06/04/2023,08/07/2022 COVID-19, mRNA, LNP-s, PF, B ooster, [...] Sign Reading Time Taken Comments Blood Pressure 160/80 10/13/2024 10:52 AM EST Pulse 52 10/13/2024 10:52 AM EST Temperature - - Respiratory Rate - - Oxygen Saturation - - Inhaled Oxygen Concentration - - Weight 105.7 kg (233 lb) 10/13/2024 10:52 AM EST Height - - Body Mass Index 37.04 08/13/2024 10:28 AM EST documented in this encounter Progress Notes * Meera Nolasco PA-C - 10/13/2024 11:03 AM EST Images from the original note were not included. 10/13/2024 Cardiology Hospital F/U: Mark Miner is a 74 year old male here today for cardiology follow-up. Last clinic evaluation approximately 3 months ago with the undersigned. Primary phlebotomy instructor is Dr. Hudson. History includes: CAD S/P possible remote stent to the LAD in 2011 or 2012 Dyslipidemia with poor tolerance to statins Hypertension Chronic pain syndrome/chronic back pain. Carotid stenosis L>R Paroxysmal atrial flutter, atrial fib Sinus bradycardia - limiting meds History of Present Illness Mark Miner is a 74 year old male with atrial flutter and atrial fibrillation who presents for close cardiology hospital follow-up. He was recently admitted in August 2024 for atrial flutter with rapid ventricular response. Initially, he converted with IV metoprolol and adenosine but later reverted to atrial fibrillation with controlled ventricular rates. During his hospital stay, he was started on metoprolol 25 mg daily, and Eliquis 5 mg BID. An echocardiogram showed LVEF of 50-55% with a small posterior wall motion abnormality, hypokinesis of the segments, severe mitral annular calcification, and mild mitral regurgitation, which was stable compared to past echocardiograms. Prior to his hospital admission, he experienced symptoms he associated with dehydration, including feeling flushed, hot, and tingling in his arms. His heart rate was elevated, reaching 166 bpm at itshighest, prompting his visit to the hospital. He describes a sensation similar to when he had a heart attack in 2013, with discomfort in his stomach and arms. Since discharge, he has experienced significant itching, which he attributes to metoprolol. He frequently scratches himself, particularly on his back. He noted increased bruising on his arms with Eliquis and self reduced dose to 1/2 tab BID. He mentions swelling in his legs and feet, which he noticed recently. He denies excessive salt intake and notes that his weight has increased by about eight pounds. He is not in favor of taking diuretics for this issue. He denies chest pain. No recurrent symptoms. BP controlled at home. Elevated on arrival today, but improved on my repeat. No palpitations, dizziness, syncope or near syncope. No orthopnea, PND, or increased lower extremity edema. No fever, chills, cough, hematochezia, melena, or hemoptysis. Review of Systems: See HPI for pertinent positives. All others negative, other than those noted in HPI. 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 Lumbar paraspinal muscle spasm Chronic pain syndrome Coronary artery disease involving [place] coronary artery of [place] heart without angina pectoris Dyslipidemia, goal LDL below 70 Hypertensive kidney disease with stage 3a chronic kidney disease Hx of nonmelanoma skin cancer Sacroiliitis, not elsewhere classified (HCC) Asymptomatic bilateral carotid artery stenosis Dyslipidemia, goal LDL below 100 Stage 3a chronic kidney disease (HCC) Carotid occlusion, left Atrial flutter with rapid ventricular response (HCC) Past Surgical History: Procedure Laterality Date CARDIAC ANGIOPLASTY, PERCUTANEOUS, 1 ARTERY 12/31/2012 stent x 1 in [place] COLONOSCOPY, DIAGNOSTIC (RECTUM) 10/24/2007 repeat in 10 years COLONOSCOPY, DIAGNOSTIC (RECTUM) N/A 03/03/2024 hemorrhoids/biopsies show adenomatous polyps/recall 5 years/Colonoscopy COLONOSCOPY, DIAGNOSTIC (RECTUM) 03/03/2024 COLONOSCOPY FLEXIBLE PROXIMAL DIAGNOSTIC performed by Amisha Marcelo MD at ENDOSCOPY [facility] INJECT DX/THER SUBSTANCE INTERLAMINAR LUMBAR/SACRAL W IMAGE GUIDE 10/06/2019 INJECTION SPINE LUMBAR OR SACRAL performed by Lawrence Mena Perrys, DO at OR [facility] INJECT DX/THER SUBSTANCE INTERLAMINAR LUMBAR/SACRAL W IMAGE GUIDE 10/23/2019 INJECTION SPINE LUMBAR OR SACRAL [facility] Lawrence Wyatt, DO [facility] L-/S-SPINE PARAVERTEBRAL FACET INJ,1 LEVEL 10/26/2016 L-/S-SPINE PARAVERTEBRAL FACET INJ, 1 LEVEL performed by Lawrence Wyatt, DO at OR [facility] SACROILIAC JOINT INJECT W/GUIDANCE 11/22/2020 INJECTION SACROILIAC JOINT performed by Lawrence Wyatt, DO at OR [facility] Family History: Family History Problem Relation Name Age of Onset Cancer Father skin, lung- smoker Mental Disorder Mother everyone has dementia Diabetes None Hypertension None Heart Disorder Uncle (Unspecified) Heart Disorder Uncle (Unspecified) Stroke None Social History: Social History Tobacco Use Smoking status: Never Passive exposure: Past Smokeless tobacco: Never Vaping Use Vaping status: Never Used Substance Use Topics Alcohol use: Yes Comment: occ beer, occ whiskey Drug use: No Comment: backed off of coffee Allergies: Antibiotic [neomycin-polymyxin b gu] and Statins Medications: Current Outpatient Medications Medication Sig Dispense Refill MULTIVITAMINS PO TABS 1 tablet daily Coenzyme Q10 100 MG Tablet 200mg daily Pain-Off 250-250-65 MG Oral Tablet (Ujctzrt-Pkprsipulecve-Ehxxiktt 250-250-65 mg per tab) as neededfor Other (back pain). Losartan Potassium 25 MG Oral Tablet (Cozaar) Take 1 Tablet by mouth in the morning and 1 Tablet before bedtime. Ezetimibe 10 MG Oral Tablet (Zetia) Take 1 Tablet by mouth at bedtime. 90 Tablet 3 Doxazosin Mesylate 2 MG Oral Tablet (Cardura) Take 1 Tablet by mouth in the morning. 100 Tablet 2 Metoprolol Succinate ER 25 MG Oral Tablet Extended Release 24 Hour (toPROL XL) Take 1 Tablet by mouth in the morning. 90 Tablet 3 Apixaban 5 MG Oral Tablet (Eliquis) Take 1 Tablet by mouth in the morning and 1 Tablet before bedtime. 180 Tablet 3 Atorvastatin Calcium 10 MG Oral Tablet (Lipitor) Take 1 Tablet by mouth in the morning. 100 Tablet 2 Adult Blood Pressure Cuff Lg Kit Use blood pressure cuff daily. 1 Kit 0 No current facility-administered medications for this visit. OBJECTIVE/PHYSICAL EXAMINATION: BP 160/80 | Pulse 52 | Wt 105.7 kg (233 lb) | BMI 37.04 kg/m² | BSA 2.23 m² On my repeat 146/78 BP Readings from Last 4 Encounters: 10/13/24 160/80 09/10/24 166/80 08/29/24 109/81 08/13/24 142/68 Wt Readings from Last 3 Encounters: 10/13/24 105.7 kg (233 lb) 09/10/24 102.1 kg (225 lb) 08/29/24 102.1 kg (225 lb) General: no acute distress and stated age Eyes: conjunctiva are pink and non-injected, sclera clear Neck: normal jugular venous pulse, no hepatojugular reflux Chest: normal shape and normal respiratory effort Lungs: clear to auscultation and percussion Cardiac Exam: regular heart sounds, no murmurs, rubs, or gallops Abdomen: abdomen soft, non-tender, no abnormal masses and no hepatosplenomegaly Musculoskeletal: no gait disturbance, no weakness Extremities: no edema and no cyanosis Neuro: grossly normal exam Psych: appropriate affect and insight. Data: EKG performed today and reviewed personally: Sinus bradycardia at 49 bmp Compared with prior EKG, NSR has replaced atrial flutter Echo report reviewed dated Aug 2024: Nuclear stress test report reviewed dated December [...] by lackof counts in the posterolateral wall. Echocardiogram report reviewed dated December 11, 2023: Interpretation Summary The examination is adequate to evaluate the referral indication. Compared to last available study changes are noted as follows: Posterior and lateral hypokinesis now present. The qualitative LV ejection fraction is 55-59% (normal). The LV wall thickness is mildly increased (concentric). There is a moderate sized posterior and lateral wall motion abnormality with hypokinesis of the segments. Mild aortic valve sclerosis is present. Doux-kb-sjxgzjdm mitral regurgitation. EKG reviewed from Aug 2023: Sinus bradycardia Otherwise normal ECG When compared with ECG of 15-MAY-2022 12:25, No significant change was found ZIO monitor report reviewed dated Aug 2023: [...] 27), andVE Triplets were rare (<1.0%, 2). Mechanism of supraventricular tachycardia appears to be atrial tachycardia. No symptoms reported EKG performed 05/15/2022: Sinus bradycardia at 53 beats per minute, incomplete right bundle branch block, otherwise normal EKG. Compared to the previous tracing performed in 2019, the previously noted premature atrial contractions are no longer present. Summary of transthoracic echocardiogram performed 05/26/2022 at [facility] site: The LV wall thickness is normal. The left ventricular wall motion is normal. The qualitative LV ejection fraction is 60-64% (normal). The left atrium is mildly enlarged. The left ventricular diastolic function is moderately abnormal (grade II). Mild mitral regurgitation is present. Recommend that future studies be performed at a site where ultrasound contrast is available. IMPRESSION: 74 year old male Assessment & Plan Atrial Flutter with Rapid Ventricular Response Admitted in August 2024 for atrial flutter with rapid ventricular response. Initially converted with IV metoprolol and adenosine, reverted to atrial fibrillation with controlled ventricular rates. Currently on metoprolol 25 mg daily, and Eliquis 5 mg BID. Echocardiogram: LVEF 50-55%, small posterior wall motion abnormality, hypokinesis of segments, severe mitral annular calcification, mild MR. -Patient attributing itching with metoprolol. He wishes to stop. He is bradycardic today with HR of49 bmp. He will reduce metoprolol to 1/2 tab for a few days then stop. Discussed risks of stopping metoprolol. We also discussed importance of continuing Eliquis (full dose) 5 mg BID to prevent stroke despite bruising. He will increase this back to prescribed dose. - Reduce metoprolol to half tablet for a few days, then discontinue - Monitor for improvement in itching - Continue Eliquis 5 mg BID - Monitor heart rate and blood pressure at home - Consider alternative medication if itching persists after stopping metoprolol Hypertension Blood pressure today at 160/?. Typically runs 126's. Symptoms of lightheadedness and dizziness whenoutside working. Currently on losartan 25 mg BID and doxazosin at night. - Continue losartan 25 mg BID - Continue doxazosin at night - Monitor blood pressure at home Coronary artery disease involving [place] coronary artery of [place] heart with unspecified angina -Prior nuclear lexiscan completed demonstrating area of old posterior and lateral infarction with sarah infarct ischemia. Scar with 22% of myocardium and reversibility approx 13%. -options discussed for med management vs cath and patient preferred med management at that time. -continue current treatment with aspirin 81 milligrams daily Remote stent to the LAD. No recent chest pain or symptoms reported. - Continue current management - Monitor for any new symptoms Dyslipidemia Statin intolerance to high doses -continue atorvastatin 10 mg. - No specific plan discussed Bilateral Carotid Stenosis Follows with vascular surgery. No new symptoms reported. - Continue follow-up with vascular surgery Dyslipidemia, goal LDL below 70 -patient has a history of known coronary heart disease as noted above. Per review of his record, he has been on multiple cholesterol-lowering agents From 2012 to 2013 he was on atorvastatin 80 milligrams daily From 2013 to 2015 he was on simvastatin 10 milligrams daily From 2015 until 2017 he was on atorvastatin 10 milligrams daily From 2020 until the present he has been on rosuvastatin. He is directed to take 5 milligrams daily,but only takes 5 milligrams every other day. He has not tolerated these medications in the past due to perceived muscle aches. This is somewhat difficult to distinguish from his other chronic pain issues. Tolerating low dose atorvastatin and Zetia. Recent lipids improved. Patient is being evaluated in the cardiology office for ongoing care/risk management for CAD; HTN; dyslipidemia. I spent a total of 40 minutes on the date of service in preparation, delivery, and documentation ofthe care provided to Mark Miner excluding any time spent in the performance of separately billed services. The patient agrees to the above plan and will call with additional questions or concerns. ER with all emergencies advised. Follow-up: Return in about 6 months (around 04/12/2025). | Check-out note: With Dr. Becca Nolasco PA-C Department of Cardiology Text in this note was generated using an ambient documentation service. I discussed the use of a device to record and summarize our discussion today. All persons present during the encounter consented to its use. documented in this encounter Procedure Notes * Diaz Seay MD - 10/13/2024 11:03 AM ESTAssociated Order(s): EKG REASON FOR STUDY: routine;routine CONCLUSIONS: Sinus bradycardia Otherwise normal ECG When compared with ECG of 29-Aug-2024 10:20, Sinus rhythm has replaced atrial flutter Vent. rate has decreased by 110 bpm Ventricular Rate: 49 Atrial Rate: 49 HI Interval: 196 QRS Duration: 84 QT/QTc: 428/386 ms P-R-T [place]: 62 : 69 : 50 degrees documented in this encounter Nursing Notes * Rosaura Jones CMA - 10/13/2024 10:49 AM EST Examination Room: 6 Name: Mark Miner Date of : (1950) Reason for Visit: 6m/ HD Interim Hospitalization(s): 08/29-08/30 Problems/Concerns:rash from metoprolol Chest Pain/SOB: denied My [facility] is a way you can talk to your provider online through e-mail. Would you like to sign up? I can activate it for you? ALREADY ACTIVE Patient was instructed to not get up on the exam table until directed and assisted by their provider; patient is to remain seated in the chair/ wheelchair/ exam table for fall prevention and safety reasons. Patient is aware to have assistance to step down off exam table with personnel. Patient voiced full comprehension of instructions. documented in this encounter Plan of Treatment Upcoming Encounters Date Type Department Care Team (Late st Contact Info) Description 03/25/2025 11:30 AM EDT Office Visit Family [facility], [address] [place] [phone] Maia Oliva DO [address] [place] [phone] 04/21/2025 11:00 AM EDT Office Visit Cardiology, [facility] [address] [place] [address] [phone] Meera Nolasco PA-C [address] [place] [phone] 09/07/2025 10:00 AM EST Nurse Only Ancillary Department, Chris [address] [place] [phone] Chris Nurse [facility] [address] [place] [phone] Scheduled Procedures Name Priority Associated Diagnoses Date/Ti [...] Additional history exists CKD HGB USE SMARTSET 04947 08/14/202508/14, 09/06/2023, 08/16/2023, Additional history exists CKD PHOS USE SMARTSET 63363 08/14/202507/27, 08/16/2023, 04/07/2021, Additional history exists Depression [...] Not on filedocumented as of this encounter Procedures Procedure Name Priority Date/Time Associated Diagnosis Comments HI ECG ROUTINE ECG W/LEAST 12 LDS W/I&R Routine 10/13/2024 11:03 AM EST Hypertension goal BP (blood pressure) < 130/80 documented in this encounter Results * EKG (10/13/2024 11:03 AM EST) 10/13/2024 11:0 3 AM EST Narrative Procedure Note Diaz Seay MD - 10/13/2024 11:03 AM EST REASON FOR STUDY: routine;routine CONCLUSIONS: Sinus bradycardia Otherwise normal ECG When compared with ECG of 29-Aug-2024 10:20, Sinus rhythm has replaced atrial flutter Vent. rate has decreased by 110 bpm Ventricular Rate: 49 Atrial Rate: 49 HI Interval: 196 QRS Duration: 84 QT/QTc: 428/386 ms P-R-T [place]: 62 : 69 : 50 degrees us Meera Nolasco PA-C EKG Final Result [facility] documented in this encounter Visit Diagnoses Diagnosis Paroxysmal atrial fibrillation (HCC)- Primary Atrial fibrillation Dyslipidemia, goal LDL below 70 Other and unspecified hyperlipidemia Hypertension goal BP (blood pressure) < 130/80 Unspecified essential hypertension Coronary artery disease involving [place] coronary artery of [place] heart without angina pectoris documented in this encounter Care Teams Production Helper Relationship Specialty Start Date End Date Maia Oliva DO PCP - General Family Medicine 11/18/18 documented as of this encounter"
--- OUTSIDE RECORDS SUMMARY | 2024-11-30 16:45 | External Medical Summary | Summary of Care ---
Author Name Unknown Organization [facility] Address [address] [facility] [place] [address] Phone [phone] Care Team Providers Care Certified Hand Therapist Name Role Phone Maia Oliva DO Primary Care Provider + [phone] Reason for Visit * Reason Comments Hospital Follow-Up Pt here today for ho spital discharge follow up Encounter Details Date Type Department Care Team (Late st Contact Info) Description 09/10/2024 10:50 AM EST [facility] [address] [facility] [place] [phone] Maia Oliva DO [address] [facility] [place], [place] [phone] Dark yellow-colored urine*; Severe obesity with body mass index (BMI) of 35.0 to 39.9 with serious comorbidity (HCC); Stage 3a chronic kidney disease (HCC); Foul smelling urine; Left flank pain; Atrial flutter with rapid ventricular response (HCC); Coronary artery disease involving pala coronary artery of pala heart without angina pectoris; Dyslipidemia, goal LDL below 70; Acute mucoid otitis media of left ear; Dyslipidemia, goal LDL below 100 Allergies Active Allergy Reactions Criticality Noted Date Comments Neomycin-Polymyxin B Gu 01/15/2013 Synthetic antibiotic- pt can not list name at this time Statins Muscle pain 09/10/2018 documented as of this encounter (statuses as of 09/10/2024) Medications MULTIVITAMINS PO TABS 1 tablet daily [...] 4 Active Ezetimibe 10 MG Oral Tablet (Zetia)Indications [...] 10 days. 30 Capsule 5 025 Active Albuterol Sulfate HFA 108 (90 Base) MCG/ACT Inhalation Aerosol SolutionIndication s:Bronchitis, complicated Inhale by mouth 2 Puffs every 6 hours as needed for Wheezing. 18 g 1 2 025 Discontin ued(Patie nt preferenc e/discont inuation) amLODIPine Besylate 5 MG Oral Tablet (Norvasc) Take 1 Tablet by mouth every night at bedtime. 5 025 Discontin ued(Patie nt preferenc e/discont inuation) amLODIPine Besylate 5 MG Oral Tablet (Norvasc)Indicatio ns:Hypertension goal BP (blood pressure) < 130/80 Take 1 Tablet by mouth every night at bedtime. 30 Tablet 5 025 Discontin ued(Patie nt preferenc e/discont inuation) amLODIPine Besylate 5 MG Oral Tablet (Norvasc)Indicatio ns:Hypertension goal BP (blood pressure) < 130/80 Take 1 Tablet by mouth every night at bedtime. 90 Tablet 3 5 025 Discontin ued(Patie nt preferenc e/discont inuation) documented as of this encounter (statuses as of 09/10/2024) Active Problems Problem Noted Date Diagnosed Date [...] 70 10/16/2019 Coronary artery disease invo lving pala coronary artery of pala heart without angina pectoris 11/20/2018 Sciatica of [...] as of this encounter (statuses as of 09/10/2024) Resolved Problems Problem Noted Date Diagnosed Date [...] as of this encounter (statuses as of 09/10/2024) Immunizations Name Administration Dates Next Due COVID-19 mRNA, LNP-s, No Pre serve, 2-Dose Series (Moderna) 10/23/2020,09/28/2020 COVID-19, MRNA-LNP, PF, 30 M CG/0.3 mL, 12 YRS AND ABOVE, IM ([facility]) 06/04/2023,08/07/2022 COVID-19, mRNA, LNP-s, PF, B [...] Sign Reading Time Taken Comments Blood Pressure 166/80 09/10/2024 11:17 AM EST Pulse 50 09/10/2024 11:17 AM EST Temperature 36.1 °C (96.9 °F) 09/10/2024 11:[address] Respiratory Rate 16 09/10/2024 11:17 AM EST Oxygen Saturation 96% 09/10/2024 11:17 AM EST Inhaled Oxygen Concentration - - Weight 102.1 kg (225 lb) 09/10/2024 11:17 AM EST Height - - Body Mass Index 35.77 08/13/2024 10:28 AM EST documented in this encounter Progress Notes * Maia Oliva, DO - 09/10/2024 11:08 AM EST Subjective: Mark Miner is a 74 year old male. Chief Complaint Patient presents with Hospital Follow-Up Pt here today for hospital discharge follow up HPI: 74 year old male here today for a follow-up from [facility]. He was admitted on 08-30 for atrial flutter. Started on toprol and eliquis. He converted to sinus after getting IV Lopressor and an dose of IV adenosine. He stopped the norvasc. He went back on losartan as before. R fullness. Cracking and popping. After his plan ride. Issues putting in his hearing aide. Having some darker urine, and stronger smell. And increased his water, developed some L flank pain. Noticed worsening hearing in his ears. Having some issues with double vision, and possible halos. He plans on getting an appt with eye . He was not on the norvasc prior to the hospital as he did not tolerate this before. He had this stopped in the past due to flushing. So he has been back on his regular losartan 25 mg bid her prefers for this to be 2 per day. 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 With food. 1 Tab 0 Adult Blood Pressure Cuff Lg Kit Use blood pressure cuff daily. 1 Kit 0 Atorvastatin Calcium 10 MG Oral Tablet (Lipitor) Take 1 Tablet by mouth in the morning. 90 Tablet 5 Pain-Off 250-250-65 MG Oral Tablet (Dtcnjzy-Uezetgmuhnjip-Cqirovfv 250-250-65 mg per tab) as neededfor Other (back pain). Doxazosin Mesylate 2 MG Oral Tablet (Cardura) Take 1 Tablet by mouth in the morning. 100 Tablet 2 Ezetimibe 10 MG Oral Tablet (Zetia) Take 1 Tablet by mouth at bedtime. 90 Tablet 3 Apixaban 5 MG Oral Tablet (Eliquis) Take 1 Tablet by mouth in the morning and 1 Tablet before bedtime. Metoprolol Succinate ER 25 MG Oral Tablet Extended Release 24 Hour (toPROL XL) Take 1 Tablet by mouth in the morning. Losartan Potassium 25 MG Oral Tablet (Cozaar) Take 1 Tablet by mouth in the morning. No current facility-administered medications for this visit. Review of patient's allergies indicates: Allergen Reactions Antibiotic [Neomycin-Polymyxin B Gu] Synthetic antibiotic- pt can not list name at this time Statins Muscle pain Objective: BP 166/80 | Pulse 50 | Temp 96.9 °F (36.1 °C) (Infrared ) | Resp 16 | Wt 225 lb (102.1 kg) | CqY370% | BMI 35.77 kg/m² | BSA 2.19 m² Physical Exam: General: alert, healthy, and no distress Ears: L ear + effusion. Heart: regular rate & rhythm, no murmur, and no gallops Lungs: chest symmetric with normal AP diameter, no chest deformities noted, no chest wall tenderness, lungs clear to auscultation Abdomen: abdomen soft, non-tender, normal bowel sounds, and no masses or organomegaly Extremities: no edema ASSESSMENT/PLAN: Dark yellow-colored urine (Primary) - URINALYSIS, POINT OF CARE (ENTER/EDIT) - CULTURE, URINE, QUANTITATIVE Severe obesity with body mass index (BMI) of 35.0 to 39.9 with serious comorbidity (HCC) Stage 3a chronic kidney disease (HCC) Foul smelling urine - URINALYSIS, POINT OF CARE (ENTER/EDIT) Left flank pain - US RENAL; Future; Expected date: 09/10/2024 Atrial flutter with rapid ventricular response (HCC) Coronary artery disease involving pala coronary artery of pala heart without angina pectoris Dyslipidemia, goal LDL below 70 Acute mucoid otitis media of left ear - Amoxicillin 500 MG Oral Capsule (Amoxil); Take 1 Capsule by mouth in the morning and 1 Capsule atnoon and 1 Capsule before bedtime. Do all this for 10 days. Dyslipidemia, goal LDL below 100 Other orders - URINALYSIS, POINT OF CARE Follow-up: Return in about 27 weeks (around 03/18/2025). | Check-out note: [facility] number. Renal US Maia Oliva DO documented in this encounter Nursing Notes * Angeles Arreguin LPN - 09/10/2024 11:12 AM EST Chief Complaint Patient presents with Hospital Follow-Up Pt here today for hospital discharge follow up Ear fullness documented in this encounter Plan of Treatment Upcoming Encounters Date Type Department Care Team (Late st Contact Info) Description 10/13/2024 11:00 AM EST Office Visit Cardiology, [facility] [address] [place] [address] Meera Nolasco PA-C [address] [place] [phone] 03/25/2025 11:30 AM EDT Office Visit Family Practice, [facility] [address] [phone] Maia Oliva DO [address] [address] 09/07/2025 10:00 AM EST Nurse Only Ancillary Department, Chris [place] [address] [place] [phone] Chris, Nurse Annual Wellness [address] [phone] Scheduled Orders Name Type Priority Associated Diagnoses Orde r Schedule URINALYSIS, POINT OF CARE (ENTER/EDIT) Point of Care Testing Routine Dark yellow-colored urine Foul smelling urine Ordered: 09/10/2024 RENAL Medical Imaging Routine Left flank pain Expected: 09/10/2024, Expires: 10/11/2025 CULTURE, URINE, QUANTITATIVE Lab Routine Dark yellow-colored urine Ordered: 09/10/2024 Scheduled Procedures Name Priority Associated Diagnoses Date/Ti [...] Additional history exists CKD HGB USE SMARTSET 65067 08/14/202508/14, 09/06/2023, 08/16/2023, Additional history exists CKD PHOS USE SMARTSET 35411 08/14/202507/27, 08/16/2023, 04/07/2021, Additional history exists Depression [...] Procedure Name Priority Date/Time Associated Diagnosis Comments URINALYSIS, POINT OF CARE [facility] 09/10/2024 11:27 AM EST documented in this encounter Results * URINALYSIS, POINT OF CARE (09/10/2024 11:27 AM EST) Color, Urine Yellow Light Yellow, Yellow 09/10/2024 11:31 AM EST [facility]01 Clarity, Urine Clear Clear 09/10/2024 11:31 AM EST [facility]01 Glucose, Urine Negative Negative mg/dL 09/10/2024 11:31 AM EST [facility]-01 Bilirubin, Urine Negative Negative 09/10/2024 11:31 AM EST [facility]-01 Ketone, Urine Negative Negative mg/dL 09/10/2024 11:31 AM EST [facility] 56 Specific [place], Urine 1.020 1.003 - 1.030 09/10/2024 11:31 AM EST [facility] 56- Blood, Urine Negative Negative 09/10/2024 11:31 AM EST [facility] 56 pH, Urine 6.5 5.0, 5.5, 6.0, 6.5, 7.0, 7.5 units 09/10/2024 11:31 AM EST [facility] 56 Protein, Urine Negative Negative mg/dL 09/10/2024 11:31 AM EST [facility] 56- Urobilinogen, Urine 1.0 0.2, 1.0 mg/dL 09/10/2024 11:31 AM EST [facility] 56- Nitrite, Urine Negative Negative 09/10/2024 11:31 AM EST [facility] 56- Esterase, Urine Negative Negative 09/10/2024 11:31 AM EST [facility] 56 Urine 09/10/2024 11:2 7 AM EST 09/10/2024 11:31 AM EST us Maia Oliva DO LAB POINT OF CARE TE ST DOCKED DEVICE UNSOLICITED RESULTS Final Result [facility] [address] [place] [address], [facility] documented in this encounter Visit Diagnoses Diagnosis Dark yellow-colored urine- Primary Severe obesity with body mass index (BMI) of 35.0 to 39.9 with serious comorbidity (HCC) Stage 3a chronic kidney disease (HCC) Foul smelling urine Other nonspecific finding on examination of urine Left flank pain Abdominal pain, unspecified site Atrial flutter with rapid ventricular response (HCC) Atrial flutter Coronary artery disease involving pala coronary artery of pala heart without angina pectoris Dyslipidemia, goal LDL below 70 Other and unspecified hyperlipidemia Acute mucoid otitis media of left ear Dyslipidemia, goal LDL below 100 Other and unspecified hyperlipidemia documented in this encounter Care Teams Certified Hand Therapist Relationship Specialty Start Date End Date Maia Oliva DO PCP - General Family Medicine 11/18/18 documented as of this encounter"
--- OUTSIDE RECORDS SUMMARY | 2024-11-30 16:45 | External Medical Summary | Summary of Care ---
Author Name Unknown Organization [facility] Address [address] [facility] [place] [address] Phone [phone] Care Team Providers Care Sales Service Executive Name Role Phone Maia Oliva DO Primary Care Provider [phone] Reason for Visit * Reason Onset Date Comments Med Request 09/01/2024 Encounter Details Date Type Department Care Team (Late st Contact Info) Description 09/01/2024 Telephone Cardiology, [facility] [address] [place] [address] Meera Nolasco PA-C [address] [place] [address] Med Request Allergies Active Allergy Reactions Criticality Noted Date Comments Neomycin-Polymyxin B Gu 01/15/2013 Synthetic antibiotic- pt can not list name at this time Statins Muscle pain 09/10/2018 documented as of this encounter (statuses as of 09/02/2024) Medications MULTIVITAMINS PO TABS 1 tablet daily Activ e Coenzyme Q10 100 MG Tablet 200mg daily 02/23/20 16 Active aspirin 81 MG chewable tabletIndications: ASCVD (arteriosclerotic cardiovascular disease),S/P angioplasty with stent,Old myocardial infarct Take 1 Tab by mouth daily. With food. 1 Tab 11/21/19 19 Active Additional Information Patient taking differently:81 mg OralMWF, With food., Reported on 09/02/2024 Adult Blood Pressure Cuff Lg KitIndications:Hyp ertensive [...] 5 4 2:09 PM EDT 09/06/19 24 Active Pain-Off 250-250-65 MG Oral Tablet (Aspirin-Acetamino phen-Caffeine 250-250-65 mg per tab) as needed for Other (back pain). Active Doxazosin Mesylate 2 MG Oral Tablet (Cardura)Yio ns:BPH with obstruction/lower urinary tract symptoms Take 1 Tablet by mouth in the morning. 100 Tablet 2 4 2:15 PM EST 11/15/19 24 Active Ezetimibe 10 MG Oral Tablet (Zetia)Indications :Dyslipidemia, goal LDL below 70 Take 1 Tablet by mouth at bedtime. 90 Tablet 3 5 3:08 PM EST 02/13/20 24 Active Apixaban 5 MG Oral Tablet (Eliquis) Take 1 Tablet by mouth in the morning and 1 Tablet before bedtime. 08/30/19 25 Active Metoprolol Succinate ER 25 MG Oral Tablet Extended Release 24 Hour (toPROL XL) Take 1 Tablet by mouth in the morning. 08/30/19 25 Active Losartan Potassium 25 MG Oral Tablet (Cozaar)Indication s:Hypertensive kidney disease with stage 3a chronic kidney disease (HCC) Take 1 Tablet by mouth in the morning. 09/01/19 25 Active nitroglycerin (NITROSTAT) 0.4 MG SUBLIndications: CVD (arteriosclerotic cardiovascular disease),Old myocardial infarct One tablet under tongue if needed for chest pain. May repeat 3 times. If chest pain continues, call [phone] Tab 3 02/23/20 16 025 Discontin ued(Medic ation List Clean Up) NATURAL SUPPLEMENT Gel Beets 025 Discontin ued(Medic ation List Clean Up) amLODIPine Besylate 5 MG Oral Tablet (Norvasc) Take 1 Tablet by mouth in the morning and 1 Tablet before bedtime. 08/29/19 25 025 Discontin ued(Refil l) documented as of this encounter (statuses as of 09/02/2024) Active Problems Problem Noted Date Diagnosed Date Asymptomatic bilateral carotid artery stenosis 0 04/30/2024 Dyslipidemia, goal LDL below 100 04/30/2024 Stage 3a chronic kidney disease 04/30/2024 Carotid occlusion, left 04/30/2024 Sacroiliitis, not elsewhere classified Hx of nonmelanoma skin cancer 08/10/2020 Overview (08/11/2020): basal cell carcinoma (L malar cheek 12/2018, R shoulder 07/2020)) Hypertensive kidney disease with stage 3a chronic kidney disease 07/05/2020 Overview: Per CKD protocol Dyslipidemia, goal LDL below 70 10/16/2019 Coronary artery disease invo lving [place] coronary artery of [place] heart without angina pectoris 11/20/2018 Sciatica of [...] as of this encounter (statuses as of 09/02/2024) Resolved Problems Problem Noted Date Diagnosed Date [...] as of this encounter (statuses as of 09/02/2024) Immunizations Name Administration Dates Next Due COVID-19 [...] encounter Miscellaneous Notes * Addendum Note - Saskia Schwartz RN - 09/02/2024 11:02 AM ESTAddended by: SASKIA SCHWARTZ on: 09/02/2024 11:02 AM Modules accepted: Orders * Telephone Encounter - Saskia Schwartz RN - 09/02/2024 10:58 AM EST Spoke with pt today Confirmed he is taking amlodipine 5mg QHS as directed by Meera Nolasco PA-C yesterday He only has enough amlodipine tablets through Sun09/05/24 Asking for 30-day supply to be sent to [facility] on [address] and then 90-day supplies to [facility] Order Prescriptions pended, please sign if agreeable * Telephone Encounter - Antoinette Mcintyre CPhT - 09/01/2024 2:00 PM EST Patient requesting refills for Amlodopine 5 MG. Upon chart review, medication is listed as discontinued, with discontinuation reason as "Adverse Reaction". Patient stating he has been taking 5 MG, 1 at bed time and has a few pills left and is now asking for a refill to be sent to mail order. Please advise if you wish to continue this therapy for the patient. Thank you, Antoinette Mcintyre CPhT Tube Fitter II [facility] 09/01/2024,2:01 PM * Telephone Encounter - Alexandra Hobson CPhT - 09/01/2024 1:57 PM EST Pt calling for refill from Cardiology. Transferred to Specialty line for further assistance. Thank you, Alexandra Hobson CPhT Sales Representative Education Courses II [facility] 09/01/2024, 1:58 PM documented in this encounter Plan of Treatment Upcoming Encounters Date Type Department Care Team (Late st Contact Info) Description 09/10/2024 10:50 AM EST Office Visit [facility] Chris Jones [address] [place] [phone] Maia Oliva DO [address] [place] [address] 10/13/2024 11:00 AM EST Office Visit Cardiology, [facility] [address] [place] [address] Meera Nolasco, ADAM [address] [place] [address] 09/07/2025 10:00 AM EST Nurse Only [facility] [address] [place] [phone] Chris, Nurse [facility] [address] [facility] [place] [address] Scheduled Procedures Name Priority Associated Diagnoses Date/Ti [...] Additional history exists CKD HGB USE SMARTSET 98090 08/14/202508/14, 09/06/2023, 08/16/2023, Additional history exists CKD PHOS USE SMARTSET 40590 08/14/202507/27, 08/16/2023, 04/07/2021, Additional history exists Cologuard [...] as of this encounter Visit Diagnoses Diagnosis Hypertension goal BP (blood pressure) < 130/80- Primary Unspecified essential hypertension documented in this encounter Care Teams Sales Service Executive Relationship Specialty Start Date End Date Maia Oliva DO PCP - General Family Medicine 11/18/18 documented as of this encounter
--- OUTSIDE RECORDS SUMMARY | 2024-11-30 16:45 | External Medical Summary | Summary of Care ---
Author Name Unknown Organization [facility] Address [address] [facility] [place] [address] Phone [phone] Care Team Providers Care Software Applications Designer Name Role Phone Pj Maiamesfin Gill DO Primary Care Provider Encounter Details Date Type Department Care Team (Late st Contact Info) Description 09/01/2024 Population Health External Data Unspecified Department Allergies Active Allergy Reactions Criticality Noted Date Comments Neomycin-Polymyxin B Gu 01/15/2013 Synthetic antibiotic- pt can not list name at this time Statins Muscle pain 09/10/2018 documented as of this encounter (statuses as of 09/01/2024) Medications MULTIVITAMINS PO TABS 1 tablet daily Activ e nitroglycerin (NITROSTAT) 0.4 MG SUBLIndications: CVD (arteriosclerotic cardiovascular disease),Old myocardial infarct One tablet under tongue if needed for chest pain. May repeat 3 times. If chest pain continues, call [phone] Tab 3 02/23/20 16 Active Coenzyme Q10 [...] 1 Tablet before bedtime. 180 Tablet 3 08/29/2024 3:08 PM EST 09/27/19 24 Active Doxazosin Mesylate 2 MG Oral Tablet (Cardura)Indicatio ns:BPH with obstruction/lower urinary tract symptoms Take 1 Tablet by mouth in the morning. 100 Tablet 2 07/12/2024 2:15 PM EST 11/15/19 24 Active Ezetimibe 10 MG Oral Tablet (Zetia)Indications :Dyslipidemia, goal LDL below 70 Take 1 Tablet by mouth at bedtime. 90 Tablet 3 08/29/2024 3:08 PM EST 02/13/20 24 Active documented as of this encounter (statuses as of 09/01/2024) Active Problems Problem Noted Date Diagnosed Date [...] 70 10/16/2019 Coronary artery disease invo lving [place] coronary artery of [place] heart without angina pectoris 11/20/2018 Sciatica of [...] as of this encounter (statuses as of 09/01/2024) Resolved Problems Problem Noted Date Diagnosed Date [...] as of this encounter (statuses as of 09/01/2024) Immunizations Name Administration Dates Next Due COVID-19 [...] 10/13/2024 11:00 AM EST Office Visit Cardiology, [facility] [address] [place] [address] Meera Nolasco, ADAM [address] [phone] 09/07/2025 10:00 AM EST Nurse Only Ancillary Department, [address] [place] [phone] Chris Nurse Annual Wellness [address] [place] [address] [phone] Scheduled Procedures Name Priority Associated Diagnoses Date/Ti [...] 23 Depression Screening 08/13/2025 08/13/2024 Albumin/Creatinine Ratio 08/14/2025 024, 08/16/2023, 05/09/2022, Additional history exists CKD HGB USE SMARTSET 21344 08/14/202508/14, 09/06/2023, 08/16/2023, Additional history exists CKD PHOS USE SMARTSET 40085 08/14/202507/27, 08/16/2023, 04/07/2021, Additional history exists Cologuard [...] filedocumented as of this encounter Care Teams Software Applications Designer Relationship Specialty Start Date End Date Maia Oliva DO PCP - General Family Medicine 11/18/18 documented as of this encounter
--- OUTSIDE RECORDS SUMMARY | 2024-11-30 16:45 | External Medical Summary | Summary of Care ---
Author Name Unknown Organization [facility] Address [address] [address] Phone [phone] Care Team Providers Care Manager Php Name Role Phone Maia Oliva DO Primary Care Provider [phone] Reason for Visit * Reason Onset Date Comments Med Request 09/01/2024 Encounter Details Date Type Department Care Team (Late st Contact Info) Description 09/01/2024 Telephone Cardiology, [facility] [address] [place] [address] Meera Nolasco PA-C [address] [employer] [place] [address] Med Request Allergies Active Allergy Reactions Criticality [...] 3 times. If chest pain continues, call [phone] Tab 3 02/23/20 16 Active Coenzyme Q10 [...] Active NATURAL SUPPLEMENT Gel Beets A ctive Doxazosin Mesylate 2 MG Oral Tablet (Cardura)Indicatio ns:BPH with obstruction/lower urinary tract symptoms Take 1 Tablet by mouth in the morning. 100 Tablet 2 07/12/2024 2:15 PM EST 11/15/19 24 Active Ezetimibe 10 MG Oral Tablet (Zetia)Indications :Dyslipidemia, goal LDL below 70 Take 1 Tablet by mouth at bedtime. 90 Tablet 3 08/29/2024 3:08 PM EST 02/13/20 24 Active amLODIPine Besylate 5 MG Oral Tablet (Norvasc) Take 1 Tablet by mouth in the morning and 1 Tablet before bedtime. 08/29/19 25 Active Apixaban 5 MG Oral Tablet [...] mouth in the morning. 09/01/19 25 Active documented as of this encounter [...] 70 10/16/2019 Coronary artery disease invo lving [place] coronary artery of [place] heart without angina pectoris 11/20/2018 Sciatica of [...] CG/0.3 mL, 12 YRS AND ABOVE, [facility] 06/04/2023,08/07/2022 COVID-19, mRNA, LNP-s, PF, B ooster, [...] encounter Miscellaneous Notes * Telephone Encounter - Antoinette Mcintyre CPhT [...] the patient. Thank you, Antoinette Mcintyre CPhT Hospital Nurse II [facility] ([facility]) 09/01/2024,2:01 PM * Telephone Encounter - Alexandra Hobson CPhT - 09/01/2024 1:57 PM EST Pt calling for refill from Cardiology. Transferred to Specialty line for further assistance. Thank you, Alexandra Hobson CPhT Material Handler Floorperson II [facility] ([facility]) 09/01/2024, 1:58 PM documented in this encounter Plan of Treatment Upcoming Encounters Date Type Department Care Team (Late st Contact Info) Description 09/10/2024 10:50 AM EST Office Visit Family Practice, Chris [facility] [address] [place] [phone] Maia Oliva DO [address] [facility] [place] [address] 10/13/2024 11:00 AM EST Office Visit Cardiology, [facility] [place] [address] Meera Nolasco PA-C [address] [place] [address] 09/07/2025 10:00 AM EST Nurse Only Ancillary Department, Chris Mcdonnellmelisa [address] [facility] [place] [phone] Chris, Nurse Annual Wellness [address] [facility] [place] [address] Scheduled Procedures Name Priority Associated Diagnoses Date/Ti [...] Additional history exists CKD HGB USE SMARTSET 89381 08/14/202508/14, 09/06/2023, 08/16/2023, Additional history exists CKD PHOS USE SMARTSET 24471 08/14/202507/27, 08/16/2023, 04/07/2021, Additional history exists Cologuard [...] filedocumented as of this encounter Care Teams Manager Php Relationship Specialty Start Date End Date Maia Oliva DO PCP - General Family Medicine 11/18/18 documented as of this encounter
--- OUTSIDE RECORDS SUMMARY | 2024-11-30 16:45 | External Medical Summary | Summary of Care ---
Author Name Unknown Organization [facility] Address [address] [facility] [address] Phone [phone] Care Team Providers Care Cotton Farmer Name Role Phone Maia Oliva DO Primary Care Provider [phone] Reason for Visit * Reason Onset Date Comments Med Request 09/01/2024 Encounter Details Date Type Department Care Team (Late st Contact Info) Description 09/01/2024 Telephone Cardiology, [facility] [address] [place] [address] Meera Nolasco PA-C [address] [employer] [place] [address] Med Request Allergies Active Allergy Reactions Criticality [...] 3 times. If chest pain continues, call [phone] Tab 3 02/23/20 16 Active Coenzyme Q10 [...] 70 10/16/2019 Coronary artery disease invo lving [place] coronary artery of [place] heart without angina pectoris 11/20/2018 Sciatica of [...] CG/0.3 mL, 12 YRS AND ABOVE, [facility] 06/04/2023,08/07/2022 COVID-19, mRNA, LNP-s, PF, B ooster, [...] the patient. Thank you, Antoinette Mcintyre CPhT Heavy Equipment Operating Engineer II [facility] ([facility]) 09/01/2024,2:01 PM * Telephone Encounter - Alexandra Hobson CPhT - 09/01/2024 1:57 PM EST Pt calling for refill from Cardiology. Transferred to Specialty line for further assistance. Thank you, Alexandra Hobson CPhT Entry Engineer II [facility] ([facility]) 09/01/2024, 1:58 PM documented in this encounter Plan of Treatment Upcoming Encounters Date Type Department Care Team (Late st Contact Info) Description 09/10/2024 10:50 AM EST Office Visit Family Practice, Chris Russell [address] [place] [phone] Maia Oliva DO [address] [facility] [place] [address] 10/13/2024 11:00 AM EST Office Visit Cardiology, [facility] [place] [address] Meera Nolasco PA-C [address] [place] [address] 09/07/2025 10:00 AM EST Nurse Only Ancillary Department, Chris Mcdonnellmelisa [address] [facility] [place] [phone] Chris, Nurse Annual Wellness [address] [facility] [place] [address] Scheduled Procedures Name Priority Associated Diagnoses Date/Ti [...] Additional history exists CKD HGB USE SMARTSET 60583 08/14/202508/14, 09/06/2023, 08/16/2023, Additional history exists CKD PHOS USE SMARTSET 04996 08/14/202507/27, 08/16/2023, 04/07/2021, Additional history exists Cologuard [...] filedocumented as of this encounter Care Teams Cotton Farmer Relationship Specialty Start Date End Date Maia Oliva DO PCP - General Family Medicine 11/18/18 documented as of this encounter
--- OUTSIDE RECORDS SUMMARY | 2024-11-30 16:45 | External Medical Summary | Summary of Care ---
Author Name Unknown Organization [facility] Address [address] [facility] [place] [address] Phone [phone] Care Team Providers Care Strategy Consultant Name Role Phone Maia Oliva DO Primary Care Provider [phone] Encounter Details Date Type Department Care Team (Late st Contact Info) Description 08/30/2024 Result Scan Unspecified Department José Manuel Hudson DO [address] [place] [address] <No scans attached> Allergies Active Allergy Reactions Criticality Noted Date [...] times. If chest pain continues, call [phone] Tab 3 02/23/20 16 Active Coenzyme Q10 [...] ctive Doxazosin Mesylate 2 MG Oral Tablet (Cardura)Jaketio ns:BPH with obstruction/lower urinary tract symptoms Take 1 Tablet by mouth in the morning. 100 Tablet 2 07/12/2024 2:15 PM EST 11/15/19 24 Active Ezetimibe 10 MG Oral Tablet (Zetia)Indications :Dyslipidemia, goal LDL below 70 Take 1 Tablet by mouth at bedtime. 90 Tablet 3 08/29/2024 3:08 PM EST 02/13/20 24 Active Apixaban [...] mouth in the morning. 09/01/19 25 Active amLODIPine Besylate 5 MG Oral Tablet [...] 70 10/16/2019 Coronary artery disease invo lving [place] coronary artery of [place] heart without angina pectoris 11/20/2018 Sciatica of [...] Family Practice, Chris Russell [address] [place] [phone] Maia Oliva DO [address] [place] [address] 10/13/2024 11:00 AM EST Office Visit Cardiology, [facility] [address] [place] [address] Meera Nolasco PA-C [address] [place] [address] 09/07/2025 10:00 AM EST Nurse Only Ancillary Department, Chris Hastings [address] [place] [phone] [place], Nurse Annual Wellness [address] [place] [address] Scheduled Procedures Name Priority Associated Diagnoses Date/Ti [...] Additional history exists CKD HGB USE SMARTSET 78922 08/14/202508/14, 09/06/2023, 08/16/2023, Additional history exists CKD PHOS USE SMARTSET 88090 08/14/202507/27, 08/16/2023, 04/07/2021, Additional history exists Cologuard [...] Procedure Name Priority Date/Time Associated Diagnosis Comments ECHOCARDIOLOGY SCANNED RESULT 08/30/2024 documented in this encounter Results * ECHOCARDIOLOGY SCANNED RESULT (08/30/2024) 08/30/2024 us José Manuel Hudson DO ECHOCARDIOLOGY Final Result documented in this encounter Care Teams Strategy Consultant Relationship Specialty Start Date End Date Maia Oliva DO PCP - General Family Medicine 11/18/18 documented as of this encounter
--- OUTSIDE RECORDS SUMMARY | 2024-11-30 16:45 | External Medical Summary ---
Author Name Unknown Address Unknown Organization : Laboratory Report Ordering Provider Test Date Status CATRACHO ANDRES 09/10/2024 11:27:00 Final Observation Date Value Abnormality Reference (Units ) Status Color of Urine by Auto 09/10/2024 11:27:00 Yellow Light Yellow, Yellow Final Clarity, Urine 09/10/2024 11:27:00 Clear Clear Final Glucose [Mass/volume] in Urine by Automated test strip 09/10/2024 11:27:00 Negative Negative (mg/dL) Final Bilirubin.total [Presence] in Urine by Automated test strip 09/10/2024 11:27:00 Negative Negative Final Ketones [Mass/volume] in Urine by Automated test strip 09/10/2024 11:27:00 Negative Negative (mg/dL) Final Specific gravity, Urine 09/10/2024 11:27:00 1.020 1.003-1.030 Final Hemoglobin [Presence] in Urine by Automated test strip 09/10/2024 11:27:00 Negative Negative Final pH, Urine 09/10/2024 11:27:00 6.5 5.0, 5.5, 6.0, 6.5, 7.0, 7.5 (units) Final Protein [Mass/volume] in Urine by Automated test strip 09/10/2024 11:27:00 Negative Negative (mg/dL) Final Urobilinogen, Urine 09/10/2024 11:27:00 1.0 0.2, 1.0 (mg/dL) Final Nitrite [Presence] in Urine by Automated test strip 09/10/2024 11:27:00 Negative Negative Final Leukocyte esterase [Presence] in Urine by Automated test strip 09/10/2024 11:27:00 Negative Negative Final Performing Location
--- OUTSIDE RECORDS SUMMARY | 2024-11-30 16:45 | External Medical Summary | Summary of Care ---
Author Name Unknown Organization [facility] Address [address] [facility] [address] Phone [phone] Care Team Providers Care Treatment Manager Name Role Phone Maia Oliva DO Primary Care Provider [phone] Reason for Visit * Reason Onset Date Comments Med Request 09/01/2024 Encounter Details Date Type Department Care Team (Late st Contact Info) Description 09/01/2024 Telephone Cardiology, [facility] [address] [place] [address] Khushboo Lowe PA-C [address] [place] [address] Med Request Allergies Active Allergy Reactions Criticality [...] pressure cuff daily. 1 Kit 0 Active Albuterol Sulfate HFA 108 (90 Base) MCG/ACT Inhalation Aerosol SolutionIndication s:Bronchitis, complicated Inhale by mouth 2 Puffs every 6 hours as needed for Wheezing. 18 g 1 2 Active Atorvastatin Calcium 10 MG Oral Tablet [...] by mouth in the morning. 5 Active amLODIPine Besylate 5 MG Oral Tablet (Norvasc)Indicatio ns:Hypertension goal BP (blood pressure) < 130/80 Take 1 Tablet by mouth every night at bedtime. 30 Tablet 5 Active amLODIPine Besylate 5 MG Oral Tablet (Norvasc)Indicatio ns:Hypertension goal BP (blood pressure) < 130/80 Take 1 Tablet by mouth every night at bedtime. 90 Tablet 3 5 Active nitroglycerin (NITROSTAT) 0.4 MG SUBLIndications: CVD (arteriosclerotic cardiovascular disease),Old myocardial infarct One tablet under tongue if needed for chest pain. May repeat 3 times. If chest pain continues, call [phone] Tab 3 6 025 Discontin ued(Medic ation List Clean Up) NATURAL SUPPLEMENT Gel Beets 025 Discontin ued(Medic ation List Clean Up) amLODIPine Besylate 5 MG Oral Tablet (Norvasc) Take 1 Tablet by mouth in the morning and 1 Tablet before bedtime. 5 025 Discontin ued(Refil l) documented as [...] 70 10/16/2019 Coronary artery disease invo lving [place] coronary artery of [place] heart without angina pectoris 11/20/2018 Sciatica of [...] encounter Miscellaneous Notes * Addendum Note - Khushboo Lowe PA-C - 09/02/2024 3:35 PM ESTAddended by: KHUSHBOO LOWE on: 09/02/2024 03:35 PM Modules accepted: Orders * Telephone Encounter - Khushboo Lowe PA-C - 09/02/2024 3:34 PM EST Noted. Scripts sent * Addendum Note - Saskia Schwartz RN - 09/02/2024 11:02 AM ESTAddended by: SASKIA SCHWARTZ on: 09/02/2024 11:02 AM Modules accepted: Orders * Telephone Encounter - Saskia Schwartz RN - 09/02/2024 10:58 AM EST Spoke with pt today Confirmed he is taking amlodipine 5mg QHS as directed by Khushboo Lowe PA-C yesterday He only has enough amlodipine tablets through Sun09/05/24 Asking for 30-day supply to be sent to [facility] [address] and then 90-day supplies to [facility] Order Prescriptions pended, please sign if agreeable [...] the patient. Thank you, Antoinette Mcintyre CPhT Needle Control Cheniller II [facility] ([facility]) 09/01/2024,2:01 PM * Telephone Encounter - Alexandra Hobson CPhT - 09/01/2024 1:57 PM EST Pt calling for refill from Cardiology. Transferred to Specialty line for further assistance. Thank you, Alexandra Hobson CPhT Chief Operator Synthesis II [facility] ([facility]) 09/01/2024, 1:58 PM documented in this encounter Plan of Treatment Upcoming Encounters Date Type Department Care Team (Late st Contact Info) Description 09/10/2024 10:50 AM EST Office Visit Family Practice, [facility] [address] [facility] [place] [phone] Maia Oliva DO [address] [facility] [place] [address] 10/13/2024 11:00 AM EST Office Visit Cardiology, [facility] [address] [place] [address] Khushboo Lowe PA-C [address] [place] [address] 09/07/2025 10:00 AM EST Nurse Only Ancillary Department, Chris Mcdonnellmelisa Hastings [address] [facility] [place] [phone] Chris, Nurse Annual Wellness [address] [facility] [place] [address] Scheduled Procedures Name Priority Associated Diagnoses Date/Ti [...] Visit 08/13/2025 08/13/2024, 08/06/20 23 Albumin/Creatinine Ratio 08/14/2025 024, 08/16/2023, 05/09/2022, Additional history exists CKD HGB USE SMARTSET 58681 08/14/202508/14, 09/06/2023, 08/16/2023, Additional history exists CKD PHOS USE SMARTSET 60608 08/14/202507/27, 08/16/2023, 04/07/2021, Additional history exists Depression [...] hypertension documented in this encounter Care Teams Treatment Manager Relationship Specialty Start Date End Date Maia Oliva DO PCP - General Family Medicine 11/18/18 documented as of this encounter
--- OUTSIDE RECORDS SUMMARY | 2024-11-30 16:45 | External Medical Summary | Summary of Care ---
Author Name Unknown Organization [facility] Address [address] [facility] [address] Phone [phone] Care Team Providers Care Field Artillery Targeting Technician Name Role Phone Maia Oliva DO Primary Care Provider [phone] Reason for Visit * Reason Onset Date Comments Med Request 09/01/2024 Encounter Details Date Type Department Care Team (Late st Contact Info) Description 09/01/2024 Telephone Cardiology, [facility] [address] [place] [address] Meera Nolasco PA-C [address] [id number] [place] [address] Med Request Allergies Active Allergy Reactions Criticality [...] 3 times. If chest pain continues, call [phone] Tab 3 02/23/20 16 Active Coenzyme Q10 [...] 4 2:09 PM EDT 09/06/19 24 Active Additional [...] 70 10/16/2019 Coronary artery disease invo lving [place] coronary artery of [place] heart without angina pectoris 11/20/2018 Sciatica of [...] the patient. Thank you, Antoinette Mcintyre CPhT Experimental Machinist II [facility] ([facility]) 09/01/2024,2:01 PM * Telephone Encounter - Alexandra Hobson CPhT - 09/01/2024 1:57 PM EST Pt calling for refill from Cardiology. Transferred to Specialty line for further assistance. Thank you, Alexandra Hobson CPhT Rubber Cutting Machine Tender II [facility] ([facility]) 09/01/2024, 1:58 PM documented in this encounter Plan of Treatment Upcoming Encounters Date Type Department Care Team (Late st Contact Info) Description 09/10/2024 10:50 AM EST Office Visit Family Practice, Chris Russell [address] [place] [phone] Maia Oliva DO [address] [place] [address] 10/13/2024 11:00 AM EST Office Visit Cardiology, [facility] [address] [place] [address] Meera Nolasco PA-C 132 [facility] [place] [address] 09/07/2025 10:00 AM EST Nurse Only Ancillary Department, Chris Hastings [address] [place] [phone] Chris Nurse Annual Wellness [address] [place] [address] Scheduled Procedures Name Priority Associated Diagnoses Date/Ti [...] 08/13/2025 08/13/2024, 08/06/20 Depression Screening 08/13/2025 08/13/2024 Albumin/Creatinine Ratio 08/14/2025 024, 08/16/2023, 05/09/2022, Additional history exists CKD HGB USE SMARTSET 80978 08/14/202508/14, 09/06/2023, 08/16/2023, Additional history exists CKD PHOS USE SMARTSET 92838 08/14/202507/27, 08/16/2023, 04/07/2021, Additional history exists Cologuard [...] filedocumented as of this encounter Care Teams Field Artillery Targeting Technician Relationship Specialty Start Date End Date Maia Oliva DO PCP - General Family Medicine 11/18/18 documented as of this encounter
--- OUTSIDE RECORDS SUMMARY | 2024-11-30 16:45 | External Medical Summary | Summary of Care ---
Author Name Unknown Organization [facility] Address [address] [facility] [place] [address] Phone [phone] Care Team Providers Care Cna Caregiver Name Role Phone Maia Oliva DO Primary Care Provider + [phone] Encounter Details Date Type Department Care Team (Late st Contact Info) Description 09/02/2024 [facility] [address] [facility] [place] [phone] Maia Oliva DO [address] [facility] [place] [address] Allergies Active Allergy Reactions Criticality Noted Date Comments Neomycin-Polymyxin B Gu 01/15/2013 Synthetic antibiotic- pt can not list name at this time Statins Muscle pain 09/10/2018 documented as of this encounter (statuses as of 09/04/2024) Medications MULTIVITAMINS PO TABS 1 tablet daily [...] HFA 108 (90 Base) MCG/ACT Inhalation Aerosol SolutionIndications :Bronchitis, complicated Inhale by mouth 2 Puffs every [...] by mouth every night at bedtime. 5 Active documented as of this encounter (statuses as of 09/04/2024) Active Problems Problem Noted Date Diagnosed Date [...] 70 10/16/2019 Coronary artery disease invo lving [place] coronary artery of [place] heart without angina pectoris 11/20/2018 Sciatica of [...] as of this encounter (statuses as of 09/04/2024) Resolved Problems Problem Noted Date Diagnosed Date [...] as of this encounter (statuses as of 09/04/2024) Immunizations Name Administration Dates Next Due COVID-19 [...] Miscellaneous Notes * Telephone Encounter - Talia Cuevas RN - 09/02/2024 11:27 AM EST [facility] Reports it cost $129 for a 30-day supply Please check to see if pt may be eligible for any assistance documented in this encounter Plan of Treatment Upcoming Encounters Date Type Department Care Team (Late st Contact Info) Description 09/10/2024 10:50 AM EST Office Visit Family Practice, Chris Russell [address] [place] [phone] Maia Oliva, DO [address] [place] [address] 10/13/2024 11:00 AM EST Office Visit Cardiology, [facility] [address] [place] [address] Meera Nolasco PA-C [address] [place] [address] 09/07/2025 10:00 AM EST Nurse Only Ancillary Department, Chris Hastings [address] [place] [phone] Chris Nurse Annual Wellness [address] [place] [address] Scheduled Procedures Name Priority Associated Diagnoses Date/Ti [...] Additional history exists CKD HGB USE SMARTSET 94747 08/14/202508/14, 09/06/2023, 08/16/2023, Additional history exists CKD PHOS USE SMARTSET 74619 08/14/202507/27, 08/16/2023, 04/07/2021, Additional history exists Depression Screening 09/02/2025 09/02/2024, 08/13/20 24 Cologuard 09/20/2026 09/20/2023, 08/27, 09/10/2023, Additional history exists Colonoscopy 03/03/2029 03/03/2024, 03/2024, 10/24/2007 Colorectal Cancer Screening 03/03/2029 DTap/Tdap Vaccines (2 - Td or Tdap) 03/21/2029 03/21/2019 Zoster Vaccines Completed 07/20/2020, 0 12/2019, 04/02/2020, Additional history exists Pneumococcal Vaccine: [...] filedocumented as of this encounter Care Teams Cna Caregiver Relationship Specialty Start Date End Date Maia Oliva DO PCP - General Family Medicine 11/18/18 documented as of this encounter
[2024-11-30] MEDS: ADENOSINE IV SOLN 3 MG/ML 2 ML VIAL IV STA (16:55)
[2024-11-30] MEDS: dilTIAZem HCl 5 MG/ML 5 ML VIAL IV STA (16:57)
[2024-11-30] MEDS: ADENOSINE IV SOLN 3 MG/ML 2 ML VIAL IV ONE (17:04)
[2024-11-30] MEDS: dilTIAZem HCl 5 MG/ML 5 ML VIAL IV ONE (17:04)
[2024-11-30 17:26] LABS: Basophils # (auto) 0.05 K/uL (0.00-0.20); Basophils % (auto) 0.5 %; Eosinophils # (auto) 0.43 K/uL (0.00-0.50); Eosinophils % (auto) 4.4 %; Hematocrit (blood only) 43.7 % (42.0-52.0); Hemoglobin 14.8 g/dl (14.0-18.0); Immature Granulocytes # (auto) 0.03 K/uL (0.01-0.20); Immature Granulocytes % (auto) 0.3 %; Lymphocytes # (auto) 1.27 K/uL (1.20-3.40); Lymphocytes % (auto) 12.9 %; Mean Corpuscular Hemoglobin 31.3 pg (25.0-34.0); Mean Corpuscular Hgb Conc 33.9 g/dL (32.0-36.0); Mean Corpuscular Volume 92.4 fL (80.0-100.0); Mean Platelet Volume 9.2 fL (9.4-12.4); Monocytes # (auto) 1.04 K/uL (0.11-0.59); Monocytes % (auto) 10.6 %; Neutrophils # (auto) 6.99 K/uL (1.40-6.50); Neutrophils % (auto) 71.3 %; Platelet Count 200 K/uL (130-400); RDW Coefficient of Variation 12.8 % (11.5-14.5); RDW Standard Deviation 43.6 fL (36.4-46.3); Red Blood Count 4.73 M/uL (4.70-6.10); White Blood Count 9.81 K/ul (4.8-10.8)
--- NOTE | 2024-11-30 17:29 | Emergency Department Note ---
History of Present Illness General Chief Complaint: Hypertension Stated Complaint: HIGH HEART RATE Time Seen by Provider: 11/30/24 16:47 History of Present Illness Provider Complaint: + rapid heart beat and + palpitations Onset (ago): 2 day(s) Duration: + Worsening Severity: similar to previous episodes Context: + occurred during rest Arrhythmia history: + atrial fibrillation, + SVT, + on anti-coagulants (Eliquis) and + other (Atrial flutter) Associated symptoms: no chest pain, no shortness of breath, no syncope, no near- syncope, no nausea, no vomiting, no anxiety, no diaphoresis or no cough Treatments prior to arrival: + vagal maneuvers (Worked temporarily) HPI narrative: Patient denies any noncompliance with Eliquis. Patient and family report that he was recently taken off of his metoprolol because he thought it was causing him rash and itching. Home Medications Medication Instructions Recorded Confirmed Type amlodipine 5 mg tablet 5 mg PO BID 08/29/24 11/30/24 History atorvastatin 10 mg tablet 10 mg PO HS 08/29/24 11/30/24 History doxazosin 2 mg tablet 2 mg PO QAM 08/29/24 11/30/24 History ezetimibe 10 mg tablet 10 mg PO HS 08/29/24 11/30/24 History multivitamin 1 tab PO QAM 08/29/24 11/30/24 History apixaban 5 mg tablet (Eliquis) 5 mg PO BID #60 tabs 08/30/24 11/30/24 Rx cetirizine 10 mg tablet (Allergy 10 mg PO DAILY 11/30/24 11/30/24 History Relief (cetirizine)) cholecalciferol (vitamin D3) 25 25 mcg PO DAILY 11/30/24 11/30/24 History mcg (1,000 unit) tablet (Vitamin D3) coenzyme Q10 100 mg capsule (Co 300 mg PO DAILY 11/30/24 11/30/24 History Q-10) losartan 25 mg tablet 25 mg PO AMHS 11/30/24 11/30/24 History red beet 500 mg capsule 1,000 mg PO UD 11/30/24 11/30/24 History Allergies Allergy/AdvReac Type Severity Reaction Status Date / Time Penicillins Allergy Unknown rash Unverified 11/30/24 21:14 (notes of "synthetic penicillin" ) metoprolol Allergy Rash Verified 11/30/24 19:54 Past Med/Surg History Problem List (Updated 11/30/24 @ 21:40 by Abhishek Bush MD) Atrial fibrillation with RVR (Acute) Chest pain (Acute) Medical History No pertinent family history Paroxysmal atrial fibrillation Atrial flutter with rapid ventricular response Surgical History No pertinent past surgical history Social History Smoking Status: Never smoker Hx Alcohol Use: Yes Hx Substance Use: No Preferred Language: Malawian Communication Ability: Effective 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 Beliefs That Will Affect Care: Quaker Quaker Beliefs: Christian Current Living Situation: Spouse Feels Safe at Home: Yes Assistive Devices: Glasses Physical Exam 2 Vital Signs: Vital Signs - 24 hr 11/30/24 16:42 11/30/24 16:55 11/30/24 16:57 Temperature 36.9 C Temperature Source Temporal Artery Sc an Pulse Rate 211 H 160 H Pulse Rate from Sp O2 Sensor Respiratory Rate 19 Respiratory Effort / Characteristics Non-Labored Sponta neous Respiratory Depth Normal Respiratory Patter n Regular Blood Pressure 154/93 H 159/105 H Blood Pressure Carrol n 113 127 Pulse Oximetry 95 Oxygen Delivery Me thod Room Air Sepsis Recent Feve r Within 48 Hours No Sepsis New/Unexpla ined Change in Men hyacinth Status N/A Sepsis Action Take n by Nursing No Action Required 11/30/24 17:00 11/30/24 17:00 11/30/24 17:01 Temperature Temperature Source Pulse Rate 80 Pulse Rate from Sp O2 Sensor Respiratory Rate Respiratory Effort / Characteristics Respiratory Depth Respiratory Patter n Blood Pressure 112/72 112/72 Blood Pressure Carrol n 87 87 Pulse Oximetry Oxygen Delivery Me thod Sepsis Recent Feve r Within 48 Hours Sepsis New/Unexpla ined Change in Men hyacinth Status Sepsis Action Take n by Nursing 11/30/24 17:03 11/30/24 17:11 11/30/24 17:11 Temperature Temperature Source Pulse Rate 81 Pulse Rate from Sp O2 Sensor Respiratory Rate 19 Respiratory Effort / Characteristics Respiratory Depth Respiratory Patter n Blood Pressure 130/75 130/75 Blood Pressure Carrol n 80 80 Pulse Oximetry Oxygen Delivery Me thod Sepsis Recent Feve r Within 48 Hours Sepsis New/Unexpla ined Change in Men hyacinth Status Sepsis Action Take n by Nursing 11/30/24 17:16 11/30/24 17:16 11/30/24 17:16 Temperature Temperature Source Pulse Rate Pulse Rate from Sp O2 Sensor Respiratory Rate Respiratory Effort / Characteristics Respiratory Depth Respiratory Patter n Blood Pressure 126/73 126/73 126/73 Blood Pressure Carrol n 92 92 92 Pulse Oximetry Oxygen Delivery Me thod Sepsis Recent Feve r Within 48 Hours Sepsis New/Unexpla ined Change in Men hyacinth Status Sepsis Action Take n by Nursing 11/30/24 17:20 11/30/24 17:20 11/30/24 17:20 Temperature Temperature Source Pulse Rate Pulse Rate from Sp O2 Sensor Respiratory Rate Respiratory Effort / Characteristics Respiratory Depth Respiratory Patter n Blood Pressure 116/79 116/79 116/79 Blood Pressure Carrol n 84 84 84 Pulse Oximetry Oxygen Delivery Me thod Sepsis Recent Feve r Within 48 Hours Sepsis New/Unexpla ined Change in Men hyacinth Status Sepsis Action Take n by Nursing 11/30/24 17:24 11/30/24 17:25 11/30/24 17:35 Temperature Temperature Source Pulse Rate 81 Pulse Rate from Sp O2 Sensor 83 Respiratory Rate 19 Respiratory Effort / Characteristics Respiratory Depth Respiratory Patter n Blood Pressure 115/71 129/76 Blood Pressure Carrol n 83 88 Pulse Oximetry 96 Oxygen Delivery Me thod Sepsis Recent Feve r Within 48 Hours Sepsis New/Unexpla ined Change in Men hyacinth Status Sepsis Action Take n by Nursing 11/30/24 17:35 11/30/24 17:36 11/30/24 17:39 Temperature Temperature Source Pulse Rate 82 82 Pulse Rate from Sp O2 Sensor 82 82 Respiratory Rate 17 21 Respiratory Effort / Characteristics Respiratory Depth Respiratory Patter n Blood Pressure 129/76 Blood Pressure Carrol n 88 Pulse Oximetry 95 95 Oxygen Delivery Me thod Sepsis Recent Feve r Within 48 Hours Sepsis New/Unexpla ined Change in Men hyacinth Status Sepsis Action Take n by Nursing 11/30/24 17:40 11/30/24 17:40 11/30/24 17:40 Temperature Temperature Source Pulse Rate Pulse Rate from Sp O2 Sensor Respiratory Rate Respiratory Effort / Characteristics Respiratory Depth Respiratory Patter n Blood Pressure 108/72 108/72 108/72 Blood Pressure Carrol n 95 95 95 Pulse Oximetry Oxygen Delivery Me thod Sepsis Recent Feve r Within 48 Hours Sepsis New/Unexpla ined Change in Men hyacinth Status Sepsis Action Take n by Nursing 11/30/24 17:40 11/30/24 17:42 11/30/24 17:45 Temperature Temperature Source Pulse Rate 83 Pulse Rate from Sp O2 Sensor 83 Respiratory Rate 17 Respiratory Effort / Characteristics Respiratory Depth Respiratory Patter n Blood Pressure 108/72 127/70 Blood Pressure Carrol n 95 98 Pulse Oximetry 95 Oxygen Delivery Me thod Sepsis Recent Feve r Within 48 Hours Sepsis New/Unexpla ined Change in Men hyacinth Status Sepsis Action Take n by Nursing 11/30/24 17:51 11/30/24 17:55 11/30/24 18:01 Temperature Temperature Source Pulse Rate Pulse Rate from Sp O2 Sensor Respiratory Rate Respiratory Effort / Characteristics Respiratory Depth Respiratory Patter n Blood Pressure 136/53 L 121/75 133/82 Blood Pressure Carrol n 77 92 103 Pulse Oximetry Oxygen Delivery Me thod Sepsis Recent Feve r Within 48 Hours Sepsis New/Unexpla ined Change in Men hyacinth Status Sepsis Action Take n by Nursing 11/30/24 18:01 11/30/24 18:01 11/30/24 18:01 Temperature Temperature Source Pulse Rate Pulse Rate from Sp O2 Sensor Respiratory Rate Respiratory Effort / Characteristics Respiratory Depth Respiratory Patter n Blood Pressure 133/82 133/82 133/82 Blood Pressure Carrol n 103 103 103 Pulse Oximetry Oxygen Delivery Me thod Sepsis Recent Feve r Within 48 Hours Sepsis New/Unexpla ined Change in Men hyacinth Status Sepsis Action Take n by Nursing 11/30/24 18:15 11/30/24 18:15 11/30/24 18:15 Temperature Temperature Source Pulse Rate Pulse Rate from Sp O2 Sensor Respiratory Rate Respiratory Effort / Characteristics Respiratory Depth Respiratory Patter n Blood Pressure 117/71 117/71 117/71 Blood Pressure Carrol n 96 96 96 Pulse Oximetry Oxygen Delivery Me thod Sepsis Recent Feve r Within 48 Hours Sepsis New/Unexpla ined Change in Men hyacinth Status Sepsis Action Take n by Nursing 11/30/24 18:18 11/30/24 18:21 11/30/24 18:21 Temperature Temperature Source Pulse Rate 82 82 Pulse Rate from Sp O2 Sensor 82 82 Respiratory Rate 20 19 Respiratory Effort / Characteristics Respiratory Depth Respiratory Patter n Blood Pressure 101/79 Blood Pressure Carrol n 85 Pulse Oximetry 96 96 Oxygen Delivery Me thod Sepsis Recent Feve r Within 48 Hours Sepsis New/Unexpla ined Change in Men hyacinth Status Sepsis Action Take n by Nursing 11/30/24 18:26 11/30/24 19:00 11/30/24 19:00 Temperature Temperature Source Pulse Rate 102 H Pulse Rate from Sp O2 Sensor 61 Respiratory Rate 14 Respiratory Effort / Characteristics Respiratory Depth Respiratory Patter n Blood Pressure 115/84 162/112 H Blood Pressure Carrol n 97 128 Pulse Oximetry 96 96 Oxygen Delivery Me thod Room Air Room Air Sepsis Recent Feve r Within 48 Hours Sepsis New/Unexpla ined Change in Men hyacinth Status Sepsis Action Take n by Nursing 11/30/24 19:05 11/30/24 19:06 11/30/24 19:12 Temperature Temperature Source Pulse Rate 108 H 108 H 114 H Pulse Rate from Sp O2 Sensor 65 Respiratory Rate 16 16 20 Respiratory Effort / Characteristics Respiratory Depth Respiratory Patter n Blood Pressure 100/77 140/85 Blood Pressure Carrol n 82 90 Pulse Oximetry 95 95 97 Oxygen Delivery Me thod Room Air Room Air Sepsis Recent Feve r Within 48 Hours Sepsis New/Unexpla ined Change in Men hyacinth Status Sepsis Action Take n by Nursing 11/30/24 19:20 11/30/24 19:30 11/30/24 21:07 Temperature Temperature Source Pulse Rate 114 H 98 H 113 H Pulse Rate from Sp O2 Sensor 59 L Respiratory Rate 18 Respiratory Effort / Characteristics Respiratory Depth Respiratory Patter n Blood Pressure 125/80 162/79 H Blood Pressure Carrol n 96 106 Pulse Oximetry 96 95 Oxygen Delivery Me thod Room Air Room Air Sepsis Recent Feve r Within 48 Hours Sepsis New/Unexpla ined Change in Men hyacinth Status Sepsis Action Take n by Nursing 11/30/24 21:15 Temperature Temperature Source Pulse Rate 107 H Pulse Rate from Sp O2 Sensor Respiratory Rate Respiratory Effort / Characteristics Respiratory Depth Respiratory Patter n Blood Pressure Blood Pressure Carrol n Pulse Oximetry Oxygen Delivery Me thod Sepsis Recent Feve r Within 48 Hours Sepsis New/Unexpla ined Change in Men hyacinth Status Sepsis Action Take n by Nursing Physical Exam: Physical Exam GENERAL: oriented to person, place, and time. appears well-developed and well- nourished. HENT: Exam performed. - Head: Normocephalic and atraumatic. EYES: Conjunctivae and EOM are normal. Right eye exhibits no discharge. Left eye exhibits no discharge. No scleral icterus. NECK: Normal range of motion. Neck supple. No JVD present. CV: Tachycardic rate, regular rhythm, normal heart sounds and intact distal pulses. There is no peripheral edema. Palpable radial pulses bue. PULM/CHEST: Effort normal and breath sounds normal. No respiratory distress. No stridor. no wheezes. no rales. ABD: The abdomen is soft. There is no tenderness. NEURO: Motor and sensation grossly intact. SKIN: Skin is warm and dry. He is not diaphoretic. PSYCH: normal mood and affect. Behavior is normal. Judgment and thought content normal. Course Course 164: The patient was evaluated in room B5. A complete history and physical exam was performed Cardiac monitoring: An order was placed for continuous cardiac monitoring. The monitor shows a rate of 160 with SVT rhythm interpreted by me Patient was found to be in SVT. Large-bore IV access was obtained. Pads were placed on the patient. Ice was placed on the patient's face which did not help. Adenosine 6 mg IV push briefly slowed the patient's heart rate down and appeared that the patient might have been in atrial flutter. Cardizem 20 mg IV push was put on the patient which improved the patient into an atrial fibrillation and finally into back into a sinus rhythm. Will check labs on the patient. 1750: Vital signs stable. Patient remains in sinus rhythm. No chest pain or difficulty breathing. High-sensitivity troponin is elevated. Will plan to conducting a delta troponin as the patient's elevated high-sensitivity troponin is most likely result of his demand ischemia for his elevated heart rate for the last 2 days. 1855: Nursing reported to me that the patient got up to try to use the bathroom and then went into an A-fib RVR again with a rate ranging from 110-160. Patient be started on Cardizem drip and admitted to the [facility] team. Administered Medications Diltiazem HCl 125 mg/ Dextrose 125 mls @ 10 mls/hr IV .[id number] [facility]; Protocol Stop: 12/30/24 18:59 Last Titration: 11/30/24 20:28 Dose: 10 mg/hr, 10 mls/hr Documented By: MONTRELL Co-signed By: QGV Admin: 11/30/24 19:26 Dose: 5 mg/hr, 5 mls/hr Documented By: MONTRELL Co-signed By: QGV Sodium Chloride (Nss) 1,000 mls @ 75 mls/hr IV .[id number] ONE Stop: 12/01/24 10:04 Last Admin: 11/30/24 21:16 Dose: 75 mls/hr Documented By: MONTRELL Discontinued Medications Adenosine (Adenosine Iv Soln 3 Mg/Ml 2 Ml Vial) Confirm Administered Dose 18 mg IV .STK-MED ONE Stop: 11/30/24 16:50 Last Admin: 11/30/24 17:04 Dose: Not Given Documented By: JOHN Adenosine (Adenosine Iv Soln 3 Mg/Ml 2 Ml Vial) 6 mg IV NOW STA Stop: 11/30/24 16:52 Last Admin: 11/30/24 16:55 Dose: 6 mg Documented By: JOHN Diltiazem HCl (Diltiazem Hcl 5 Mg/Ml 5 Ml Vial) Confirm Administered Dose 25 mg IV .STK-MED ONE Stop: 11/30/24 16:52 Last Admin: 11/30/24 17:04 Dose: Not Given Documented By: JOHN Diltiazem HCl (Diltiazem Hcl 5 Mg/Ml 5 Ml Vial) 20 mg IV NOW STA Stop: 11/30/24 17:02 Last Admin: 11/30/24 16:57 Dose: 20 mg Documented By: JOHN Co-signed By: SREEDHAR Digoxin 250 mcg/ Syringe 10 mls @ 2 mls/min IV NOW STA Stop: 11/30/24 20:47 Last Admin: 11/30/24 21:15 Dose: 2 mls/min Documented By: MONTRELL Ioversol (Optiray 320 100ml) 93 ml IV ONCE ONE Stop: 11/30/24 21:02 Last Admin: 11/30/24 21:01 Dose: 93 ml Documented By: JOSE Losartan Potassium (Losartan Potassium 25 Mg Tab) 25 mg PO NOW STA Stop: 11/30/24 19:57 Last Admin: 11/30/24 20:27 Dose: 25 mg Documented By: MONTRELL Medical Decision Making Medical Records Attestation: I reviewed the patient's medical records. External medical records are obtained by psychiatric behavioral health case manager Campbell and reviewed. Patient follows with [facility] cardiology. Patient has a history of coronary artery disease status post remote stent in the LAD in 2011. Patient was admitted to the hospital in January 2025 for A-fib RVR. Initially was converted with IV metoprolol and adenosine but later reverted back to atrial fibrillation. Echo from August 2024 showed atrial fibrillation with controlled ventricular rate with an ejection fraction of 50 to 55%. Nuclear stress test from December 11, 2023 showed an abnormal Lexiscan with nuclear perfusion imaging demonstrating large posterior and lateral infarct. During her visit with his cardiology team IN August 2024 it is reported that the patient was reporting itching and having bradycardia on metoprolol. He was discontinued from metoprolol but continued Eliquis. Laboratory Data Attestation: I reviewed the patient's lab results. 11/30/24 17:09 11/30/24 17:09 Lab Results 11/30/24 11/30/24 Range/Units 17: 19:00 WBC 9.81 (4.8-10.8) K/ul RBC 4.73 (4.70-6.10) M/uL Hgb 14.8 (14.0-18.0) g/dl Hct 43.7 (42.0-52.0) % MCV 92.4 (80.0-100.0) fL MCH 31.3 (25.0-34.0) pg MCHC 33.9 (32.0-36.0) g/dL RDW Std Deviation 43.6 (36.4-46.3) fL RDW Coeff of Dalia 12.8 (11.5-14.5) % Plt Count 200 (130-400) K/uL MPV 9.2 L (9.4-12.4) fL Immature Gran % (Auto) 0.3 % Neut % (Auto) 71.3 % Lymph % (Auto) 12.9 % [place] % (Auto) 10.6 % Eos % (Auto) 4.4 % Baso % (Auto) 0.5 % Neut # (Auto) 6.99 H (1.40-6.50) K/uL Lymph # (Auto) 1.27 (1.20-3.40) K/uL [place] # (Auto) 1.04 H (0.11-0.59) K/uL Eos # (Auto) 0.43 (0.00-0.50) K/uL Baso # (Auto) 0.05 (0.00-0.20) K/uL Immature Gran # (Auto) 0.03 (0.01-0.20) K/uL PT 11.8 (9.0-12.0) Seconds INR 1.1 (0.9-1.1) APTT 28 (21-31) Seconds PTT Ratio 1.0 Sodium 139 (136-145) mmol/L Potassium 4.2 (3.5-5.1) mmol/L Chloride 105 (98-107) mmol/L Carbon Dioxide 32 (21-32) mmol/L Anion Gap 2 L (3-11) BUN 18 (6-23) mg/dl Creatinine 1.31 (0.6-1.4) mg/dl Est Cr Clr Drug Dosing Not Reportable eGFR 57.12 BUN/Creatinine Ratio 13.7 (10-20) Glucose 86 (70-99(Fasting)) mg/dl Calcium 9.0 (8.6-10.3) mg/dl Magnesium 2.0 (1.7-2.4) mg/dl Total Bilirubin 0.6 (0.2-1.0) mg/dl Direct Bilirubin 0.0 (0-0.2) mg/dl AST 26 (13-39) U/L ALT 25 (7-52) U/L Alkaline Phosphatase 83 (34-104) U/L Troponin I High Sens 66.6 H* 71.3 H* (0-20) pg/ml Total Protein 6.8 (6.0-8.3) gm/dl Albumin 4.6 (3.4-5.0) gm/dl Lipase 24 (11-82) U/L Imaging Data Attestation: I personally reviewed and interpreted this imaging study as follows: My Impression: Chest x-ray negative. Airway clear. No pneumothorax. No consolidation. No cardiomegaly or cephalization.. No free air under the diaphragm. No fractures of the skeletal structures. ECG Data Attestation: I personally reviewed and interpreted this ECG as follows: Additional Comments: EKG #1 at 1648: SVT with rate of 159. QRS [address] elevation or ST depression. PVC present. EKG #2 at 1658 status post adenosine 6 mg IV push followed by Cardizem 20 mg IV push: Atrial fibrillation with rate of 109. QRS [address] elevation or ST depression EKG #3 at 1659: Sinus rhythm with a rate of 81. NC QRS and QTc intervals within normal limits. No ST elevation or ST depression. [facility] Narrative 1647: The patient was evaluated in room B5. A complete history and physical exam was performed Cardiac monitoring: An order was placed for continuous cardiac monitoring. The monitor shows a rate of 160 with SVT rhythm interpreted by me Patient was found to be in SVT. Large-bore IV access was obtained. Pads were placed on the patient. Ice was placed on the patient's face which did not help. Adenosine 6 mg IV push briefly slowed the patient's heart rate down and appeared that the patient might have been in atrial flutter. Cardizem 20 mg IV push was put on the patient which improved the patient into an atrial fibrillation and finally into back into a sinus rhythm. Will check labs on the patient. 1750: Vital signs stable. Patient remains in sinus rhythm. No chest pain or difficulty breathing. High-sensitivity troponin is elevated. Will plan to conducting a delta troponin as the patient's elevated high-sensitivity troponin is most likely result of his demand ischemia for his elevated heart rate for the last 2 days. 1855: Nursing reported to me that the patient got up to try to use the bathroom and then went into an A-fib RVR again with a rate ranging from 110-160. Patient be started on Cardizem drip and admitted to the [facility] team. Impression & Plan Atrial fibrillation with RVR Critical Care Time Critical Care Time: Yes Total Critical Care Time: 47 I have personally spent greater than 47 minutes of critical care time in the direct management of this patient. This includes bedside care, interpretation of diagnostic studies, and testing, discussion with consultants, patient, and family members, and other required patient management activities. This 47 minutes is in excess of all separately billable procedures. Discharge Plan Visit Data Chief Complaint: Hypertension Stated Complaint: HIGH HEART RATE ED Provider: Abhishek Bush Discharge Problem: Atrial fibrillation with RVR Patient Disposition: Admitted As Inpatient Forms Stand Alone Forms: My [facility] Prescriptions Prescriptions: No Action multivitamin Tablet 1 tab PO QAM atorvastatin 10 mg tablet 10 mg PO HS amlodipine 5 mg tablet 5 mg PO BID doxazosin 2 mg tablet 2 mg PO QAM ezetimibe 10 mg tablet 10 mg PO HS Eliquis 5 mg tablet 5 mg PO BID Qty: 60 0RF losartan 25 mg tablet 25 mg PO AMHS coenzyme Q10 [Co Q-10] 100 mg Capsule 300 mg PO DAILY cholecalciferol (vitamin D3) [Vitamin D3] 25 mcg (1,000 unit) Tablet 25 mcg PO DAILY cetirizine [Allergy Relief (cetirizine)] 10 mg Tablet 10 mg PO DAILY red beet 500 mg Capsule 1,000 mg PO UD Referrals Referrals: Maia Oliva DO [Primary Care Provider] -
[2024-11-30 17:43] LABS: Anion Gap 2 (3-11); BUN Creatinine Ratio 13.7 (10-20); Blood Urea Nitrogen 18 mg/dl (6-23); Carbon Dioxide 32 mmol/L (21-32); Chloride 105 mmol/L (98-107); Glucose 86 mg/dl (70-99(Fasting)); Lipase 24 U/L (11-82); Potassium 4.2 mmol/L (3.5-5.1); Sodium 139 mmol/L (136-145)
[2024-11-30 17:51] LABS: INR 1.1 (0.9-1.1); Partial Thromboplastin Time 28 Seconds (21-31); Prothrombin Time 11.8 Seconds (9.0-12.0)
[2024-11-30 17:57] LABS: Troponin I High Sensitivity 66.6 pg/ml (0-20)
[2024-11-30] MEDS: dilTIAZem HCL 125 MG in DEXTROSE 5% 100 ML IV SCH (19:26)
[2024-11-30] MEDS: LOSARTAN POTASSIUM 25 MG TAB PO STA (20:27)
--- NOTE | 2024-11-30 20:44 | History & Physical Report ---
Date of Service November 30, 2024 Assessment & Plan (1) Atrial fibrillation with RVR: Plan: Recurrent atrial flutter Possibly from uncontrolled hypertension Troponin elevation secondary above hx CAD status post stent/PVD sinus bradycardia as per records mild MR hyperlipidemia, on statin Rx Admit to PCU Initiate oral Cardizem to wean off IV Cardizem Careful dose titration given history sinus bradycardia as per records Cardiology consult re: recurrent atrial flutter N.p.o. after midnight in anticipation of procedure DVT prophylaxis. Eliquis Full code Patient requesting updates providers. Ms. Tennille Miner, contact #[phone]. Text document was generated using [employer] voice recognition software. It may contain grammatical or spelling errors. Kindly contact undersigned for clarification of any documentation item in question. History of Present Illness Chief Complaint: Fast heartbeat Primary Care Provider: Maia Oliva DO History obtained from patient, family, and records. Medical history significant for CAD status post stent, atrial flutter on Eliquis, sinus bradycardia as per records, mild MR, PVD, hypertension, hyperlipidemia, skin cancer as per records, chronic pain. Last confinement August 2024 for rapid atrial flutter. Patient converted to NSR prior to discharge. Patient discharged on Toprol XL and Eliquis course. Patient Toprol weaned off outpatient due to pruritic rash concerns for medication. 2 days ago, patient noted fast heartbeat at home on BP check. Blood pressure noted to be low. No chest pain, no SOB, no unusual cough symptoms. Usual sinusitis symptoms. Blood pressure and heartbeat improved after leg elevation as per . Today, patient noted achy right-sided abdominal discomfort without diarrhea or constipation symptoms. Palpitations noted at home. Patient denies chest pain, SOB, headache symptoms. Compliant with medications. Patient noted to be in SVT, rate 200s upon arrival at the ER. SBP 150s. Patient given adenosine and diltiazem boluses at the ER. Cardizem infusion initiated after rapid atrial flutter rhythm, heart rate 160s, noted upon patient standing up to use urinal at the ER. Medical History as above Surgical History : None Family History : DM, lung cancer, dementia Personal/Social history : Non-smoker, occasional EtOH intake, retired airport employee Allergies Allergy/AdvReac Type Severity Reaction Status Date / Time Penicillins Allergy Unknown rash Unverified 11/30/24 21:14 (notes of "synthetic penicillin" ) metoprolol Allergy Rash Verified 11/30/24 19:54 Home Medications Medication Instructions Recorded Confirmed Type amlodipine 5 mg tablet 5 mg PO BID 08/29/24 11/30/24 History atorvastatin 10 mg tablet 10 mg PO HS 08/29/24 11/30/24 History doxazosin 2 mg tablet 2 mg PO QAM 08/29/24 11/30/24 History ezetimibe 10 mg tablet 10 mg PO HS 08/29/24 11/30/24 History multivitamin 1 tab PO QAM 08/29/24 11/30/24 History apixaban 5 mg tablet (Eliquis) 5 mg PO BID #60 tabs 08/30/24 11/30/24 Rx cetirizine 10 mg tablet (Allergy 10 mg PO DAILY 11/30/24 11/30/24 History Relief (cetirizine)) cholecalciferol (vitamin D3) 25 25 mcg PO DAILY 11/30/24 11/30/24 History mcg (1,000 unit) tablet (Vitamin D3) coenzyme Q10 100 mg capsule (Co 300 mg PO DAILY 11/30/24 11/30/24 History Q-10) losartan 25 mg tablet 25 mg PO AMHS 11/30/24 11/30/24 History red beet 500 mg capsule 1,000 mg PO UD 11/30/24 11/30/24 History Past Med/Surg History Problem List (Updated 11/30/24 @ 21:40 by Abhishek Bush MD) Atrial fibrillation with RVR (Acute) Chest pain (Acute) Medical History No pertinent family history Paroxysmal atrial fibrillation Atrial flutter with rapid ventricular response Surgical History No pertinent past surgical history Social History Smoking Status: Never smoker Second Hand Exposure: No; Do You Dip or Chew Tobacco: No; Tobacco Cessation Education Requested by Patient: No Hx Alcohol Use: Yes Alcohol type: beer Hx Substance Use: No Preferred Language: Northern Irish Communication Ability: Effective 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 Beliefs That Will Affect Care: None Current Living Situation: Spouse Other Information That Helps Us Care for You: No Feels Safe at Home: Yes Safety Concerns: Feels Safe At This Time Assistive Devices: Glasses and Hearing Aid - Bilateral Review of Systems Review of Systems: As per HPI, all other systems reviewed and negative Physical Exam Physical Exam: GENERAL: Comfortable, slightly anxious, obese, no respiratory distress SKIN: Normal color, warm HEENT: The spectacle, [place] palpebral conjunctivae, no ptosis, moist buccal mucosa NECK : Supple, short neck, no tenderness CHEST : CTA, no tenderness HEART : Tachycardic, no obvious murmurs ABDOMEN: Some distention, minimal right sided abdominal tenderness EXTREMITIES : Minimal LE swelling, no LE tenderness, palpable pulses, no other conspicuous deformities noted NEUROLOGIC : Coherent, no facial asymmetry, no other gross focality Results & Data Results & Data Vital Signs (Past 12 Hours) Vital Signs Temp Pulse Resp BP Pulse Ox O2 Del Method 11/30/24 19:30 98 H 18 162/79 H 95 Room Air 11/30/24 19:20 114 H 125/80 96 Room Air 11/30/24 19:12 114 H 20 140/85 97 Room Air 11/30/24 19:06 108 H 16 95 11/30/24 19:05 108 H 16 100/77 95 Room Air 11/30/24 19:00 102 H 14 162/112 H 96 Room Air 11/30/24 19:00 96 Room Air 11/30/24 18:26 115/84 11/30/24 18:21 101/79 11/30/24 18:21 82 19 96 11/30/24 18:18 82 20 96 11/30/24 18:15 117/71 11/30/24 18:15 117/71 11/30/24 18:15 117/71 11/30/24 18:01 133/82 11/30/24 18:01 133/82 11/30/24 18:01 133/82 11/30/24 18:01 133/82 11/30/24 17:55 121/75 11/30/24 17:51 136/53 L 11/30/24 17:45 127/70 11/30/24 17:42 83 17 95 11/30/24 17:40 108/72 11/30/24 17:40 108/72 11/30/24 17:40 108/72 11/30/24 17:40 108/72 11/30/24 17:39 82 21 95 11/30/24 17:36 82 17 95 11/30/24 17:35 129/76 11/30/24 17:35 129/76 11/30/24 17:25 115/71 11/30/24 17:24 81 19 96 11/30/24 17:20 116/79 11/30/24 17:20 116/79 11/30/24 17:20 116/79 11/30/24 17:16 126/73 11/30/24 17:16 126/73 11/30/24 17:16 126/73 11/30/24 17:11 130/75 11/30/24 17:11 130/75 11/30/24 17:03 81 19 11/30/24 17:01 80 11/30/24 17:00 112/72 11/30/24 17:00 112/72 11/30/24 16:57 160 H 11/30/24 16:55 159/105 H 11/30/24 16:42 36.9 C 211 H 19 154/93 H 95 Room Air Laboratory Results Laboratory Results WBC 9.81 K/ul (4.8-10.8) 11/30/24 17:09 RBC 4.73 M/uL (4.70-6.10) 11/30/24 17:09 Hgb 14.8 g/dl (14.0-18.0) 11/30/24 17:09 Hct 43.7 % (42.0-52.0) 11/30/24 17:09 MCV 92.4 fL (80.0-100.0) 11/30/24 17:09 MCH 31.3 pg (25.0-34.0) 11/30/24 17:09 MCHC 33.9 g/dL (32.0-36.0) 11/30/24 17:09 RDW Std Deviation 43.6 fL (36.4-46.3) 11/30/24 17:09 RDW Coeff of Dalia 12.8 % (11.5-14.5) 11/30/24 17:09 Plt Count 200 K/uL (130-400) 11/30/24 17:09 MPV 9.2 fL (9.4-12.4) L 11/30/24 17:09 Immature Gran % (Auto) 0.3 % 11/30/24 17:09 Neut % (Auto) 71.3 % 11/30/24 17:09 Lymph % (Auto) 12.9 % 11/30/24 17:09 [place] % (Auto) 10.6 % 11/30/24 17:09 Eos % (Auto) 4.4 % 11/30/24 17:09 Baso % (Auto) 0.5 % 11/30/24 17:09 Neut # (Auto) 6.99 K/uL (1.40-6.50) H 11/30/24 17:09 Lymph # (Auto) 1.27 K/uL (1.20-3.40) 11/30/24 17:09 [place] # (Auto) 1.04 K/uL (0.11-0.59) H 11/30/24 17:09 Eos # (Auto) 0.43 K/uL (0.00-0.50) 11/30/24 17:09 Baso # (Auto) 0.05 K/uL (0.00-0.20) 11/30/24 17:09 Immature Gran # (Auto) 0.03 K/uL (0.01-0.20) 11/30/24 17:09 PT 11.8 Seconds (9.0-12.0) 11/30/24 17:09 INR 1.1 (0.9-1.1) 11/30/24 17:09 APTT 28 Seconds (21-31) 11/30/24 17:09 PTT Ratio 1.0 11/30/24 17:09 Sodium 139 mmol/L (136-145) 11/30/24 17:09 Potassium 4.2 mmol/L (3.5-5.1) 11/30/24 17:09 Chloride 105 mmol/L (98-107) 11/30/24 17:09 Carbon Dioxide 32 mmol/L (21-32) 11/30/24 17:09 Anion Gap 2 (3-11) L 11/30/24 17:09 BUN 18 mg/dl (6-23) 11/30/24 17:09 Creatinine 1.31 mg/dl (0.6-1.4) 11/30/24 17:09 Est Cr Clr Drug Dosing Not Reportable 11/30/24 17:09 eGFR 57.12 11/30/24 17:09 BUN/Creatinine Ratio 13.7 (10-20) 11/30/24 17:09 Glucose 86 mg/dl (70-99(Fasting)) 11/30/24 17:09 Calcium 9.0 mg/dl (8.6-10.3) 11/30/24 17:09 Magnesium 2.0 mg/dl (1.7-2.4) 11/30/24 17:09 Troponin I High Sens 71.3 pg/ml (0-20) H* 11/30/24 19:00 Lipase 24 U/L (11-82) 11/30/24 17:09 CT abdomen pelvis: No acute abnormality. Diagnostic Findings EKG as per my interpretation :Rate 160, SVT, normal axis, incomplete RBBB, PVCs, no ischemia
[2024-11-30] MEDS ORDERED: PROMETHAZINE 6.25 MG/50.25 ML BAG IV PRN (20:46)
[2024-11-30] MEDS: OPTIRAY 320 100ml IV ONE (21:01)
[2024-11-30] MEDS: DIGOXIN 250 MCG in SYRINGE 9 ML IV STA (21:15)
[2024-11-30] MEDS: SODIUM CHLORIDE 0.9% 1,000 ML IV ONE (21:16)
[2024-11-30 21:18] LABS: Alanine Aminotransferase 25 U/L (7-52); Albumin Level 4.6 gm/dl (3.4-5.0); Alkaline Phosphatase 83 U/L (34-104); Aspartate Aminotransferase 26 U/L (13-39); Bilirubin,Total 0.6 mg/dl (0.2-1.0); Total Protein 6.8 gm/dl (6.0-8.3)
[2024-11-30] MEDS: STAT IV Infusion **Titration per Protocol STA (22:09)
[2024-11-30 22:11] LABS: Appearance Urine Clear (Clear); Bilirubin Urine Negative (Negative); Blood Urine Negative (Negative); Color Urine Yellow; Glucose Urine UA Negative (Negative); Ketones Urine Negative (Negative); Leukocyte Esterase Urine Negative (Negative); Nitrite Urine Negative (Negative); Protein Urine Negative (Negative); Specific Gravity Urine 1.017 (1.000-1.030); Urobilinogen Urine Negative (Negative)
[2024-11-30] MEDS: EZETIMIBE 10 MG TAB PO SCH (22:40)
[2024-11-30] MEDS: amLODIPine BESYLATE 5 MG TAB PO SCH (22:40)
[2024-11-30] MEDS: LOSARTAN POTASSIUM 25 MG TAB PO SCH (22:41)
[2024-11-30] MEDS: ATORVASTATIN 10 MG TAB PO SCH (22:41)
--- NOTE | 2024-12-01 00:15 | CT Scan Report ---
Exam(s): CT ABDOMEN + PELVIS With Contrast IV Amt: OPTIRAY 320 93ML EXAM: CT Abdomen and Pelvis With Intravenous Contrast CLINICAL HISTORY: r abd pain. TECHNIQUE: Axial computed tomography images of the abdomen and pelvis with intravenous contrast. CTDI is 28.04 mGy and DLP is 1431.93 mGy-cm. Automated exposure control was utilized for the study. A dose lowering technique was utilized adhering to the principles of ALARA. CONTRAST: Patient received OPTIRAY 320 93ML of IV contrast COMPARISON: No relevant prior studies available. FINDINGS: Lung bases: Minimal dependent atelectasis. Coronary artery calcifications. ABDOMEN: Liver: Unremarkable. No mass. Gallbladder and bile ducts: Unremarkable. No calcified stones. No ductal dilation. Pancreas: Partially fatty replaced. No mass. No ductal dilation. Spleen: Unremarkable. No splenomegaly. Adrenals: Unremarkable. No mass. Kidneys and ureters: 12 mm right renal cortical cyst. No obstructing renal or ureteral calculi. No hydronephrosis or hydroureter. Stomach and bowel: No obstruction or ileus. No evidence for diverticulitis. PELVIS: Appendix: Appendix is identified. No findings to suggest acute appendicitis. Bladder: Unremarkable. No mass. Reproductive: Unremarkable as visualized. ABDOMEN and PELVIS: Intraperitoneal space: No free air. No free fluid. Bones/joints: No acute fracture. Degenerative changes of the spine. Soft tissues: Unremarkable. Vasculature: Atherosclerotic vascular calcifications. No abdominal aortic aneurysm. Lymph nodes: Unremarkable. No enlarged lymph nodes. IMPRESSION: No acute abnormality. Electronically signed by: Daren Arevalo M.D. 12/01/24 00:14 AM
[2024-12-01] MEDS: dilTIAZem HCL 30 MG TAB PO STA (00:37)
[2024-12-01] MEDS: APIXABAN 5 MG TABLET PO SCH (00:38)
--- NOTE | 2024-12-01 03:27 | Communication Note ---
Date of Service: December 01, 2024 Patient with episodic bradycardia heart rate 40s as per RN. Patient asymptomatic Stop IV Cardizem infusion Hold additional oral Cardizem doses until patient seen by cardiology.
[2024-12-01 06:21] LABS: Basophils # (auto) 0.04 K/uL (0.00-0.20); Basophils % (auto) 0.5 %; Eosinophils # (auto) 0.34 K/uL (0.00-0.50); Eosinophils % (auto) 4.1 %; Hematocrit (blood only) 40.4 % (42.0-52.0); Hemoglobin 13.9 g/dl (14.0-18.0); Immature Granulocytes # (auto) 0.02 K/uL (0.01-0.20); Immature Granulocytes % (auto) 0.2 %; Lymphocytes # (auto) 1.24 K/uL (1.20-3.40); Mean Corpuscular Hemoglobin 31.5 pg (25.0-34.0); Mean Corpuscular Hgb Conc 34.4 g/dL (32.0-36.0); Mean Corpuscular Volume 91.6 fL (80.0-100.0); Mean Platelet Volume 9.3 fL (9.4-12.4); Monocytes # (auto) 0.86 K/uL (0.11-0.59); Monocytes % (auto) 10.4 %; Neutrophils # (auto) 5.74 K/uL (1.40-6.50); Neutrophils % (auto) 69.8 %; Platelet Count 182 K/uL (130-400); RDW Coefficient of Variation 12.8 % (11.5-14.5); RDW Standard Deviation 43.3 fL (36.4-46.3); Red Blood Count 4.41 M/uL (4.70-6.10); White Blood Count 8.24 K/ul (4.8-10.8)
[2024-12-01 06:35] LABS: BUN Creatinine Ratio 14.4 (10-20); Calcium 8.8 mg/dl (8.6-10.3); Creatinine Clr Calc Pharmacy 69.3 ml/min
--- NOTE | 2024-12-01 07:32 | XRay Report ---
EXAM: XR chest 1V portable CLINICAL HISTORY: Chest pain, nonspecific TECHNIQUE: An X-ray image of the chest is obtained in AP projection. COMPARISON: 08/29/2024 CR. FINDINGS: Pulmonary Parenchyma: Stable mild vascular congestion. No evidence of consolidation, collapse, or focal opacities. No pulmonary nodules are identified. No evidence of pleural effusion or pleural thickening. Heart and Mediastinum: Stable cardiomegaly. No mediastinal widening or masses. No hilar or mediastinal lymphadenopathy. Bony Thorax: Bony thorax appears intact without fractures or deformities. Soft Tissues: Soft tissues overlying the chest wall are unremarkable. IMPRESSION: 1. Stable cardiomegaly with mild congestion. 2. No gross interval change in comparison with 08/29/2024. Electronically signed by Geovany Ferrer 12-01-2024 07:31 AM
[2024-12-01] MEDS ORDERED: dilTIAZem HCL 30 MG TAB PO SCH (09:00)
--- NOTE | 2024-12-01 09:00 | Cardiology Consultation ---
Date of Consultation December 01, 2024 Assessment & Plan (1) Atrial flutter with rapid ventricular response: (2) Tachy-yue syndrome: (3) Troponin I above reference range: No EKG or clinical findings to suggest acute coronary syndrome Plan 74-year-old male with paroxysmal atrial flutter, (atypical) admitted after found to be in atrial flutter at home by elevated heart rate on patient blood pressure cuff. Minimally symptomatic. Heart rates though very dynamic with rapid rates with any activity and bradycardia on attempts to control. Has had poor tolerance of AV alison blocking medications due to bradycardia as well as adverse reaction to metoprolol succinate. Discussed management in detail with patient Plan: Continue anticoagulation with oral apixaban Given tachybradycardia cardia will arrange for pacemaker insertion Sunday with possible cardioversion to follow, amiodarone post pacemaker insertion. Patient understands and agrees with plan History of Present Illness Reason for Consultation: Atypical atrial flutter with rapid response Requesting Physician: Kaitlyn hospitalist Attending Physician: Adriel Lawrence MD History of Present Illness Patient is a 74-year-old male with ongoing cardiac concerns 1. Myocardial infarction while at a training session in [facility] Dec, 2012. Cardiac catheterization report from the procedure describes 100% proximal circumflex stenosis for which patient underwent PCI and stent placement nonobstructive disease noted elsewhere including 25% mid LAD stenosis, 30% long tubular proximal to mid right coronary artery stenosis,25% right PDA branch stenosis 2. Dyslipidemia with poor tolerance to statins 3. Hypertension 4. Chronic pain syndrome/chronic back pain. 5. Carotid stenosis L>R 6. Paroxysmal atrial flutter, atrial fib 7. Sinus bradycardia - limiting meds Patient presents for hospitalization with once again having observed elevated heart rates on home blood pressure monitor. Minimal symptoms of dyspnea. No syncope or near syncope. Initial event 2 days prior to hospitalization responded to Valsalva maneuvers however date of admission heart rates running in the 160s and unable to be controlled through usual mechanisms. No chest pains, worsening shortness of breath. No orthopnea PND or peripheral edema. Taking medications as prescribed. No bleeding issues on chronic anticoagulation with apixaban Patient treated initially with IV diltiazem but discontinued due to bradycardia. Currently asymptomatic this morning resting heart rates 80s but with rapid increase with any activity Allergies Allergy/AdvReac Type Severity Reaction Status Date / Time Penicillins Allergy Unknown rash Unverified 11/30/24 21:14 (notes of "synthetic penicillin" ) metoprolol Allergy Rash Verified 11/30/24 19:54 Home Medications Medication Instructions Recorded Confirmed Type amlodipine 5 mg tablet 5 mg PO BID 08/29/24 11/30/24 History atorvastatin 10 mg tablet 10 mg PO HS 08/29/24 11/30/24 History doxazosin 2 mg tablet 2 mg PO QAM 08/29/24 11/30/24 History ezetimibe 10 mg tablet 10 mg PO HS 08/29/24 11/30/24 History multivitamin 1 tab PO QAM 08/29/24 11/30/24 History apixaban 5 mg tablet (Eliquis) 5 mg PO BID #60 tabs 08/30/24 11/30/24 Rx cetirizine 10 mg tablet (Allergy 10 mg PO DAILY 11/30/24 11/30/24 History Relief (cetirizine)) cholecalciferol (vitamin D3) 25 25 mcg PO DAILY 11/30/24 11/30/24 History mcg (1,000 unit) tablet (Vitamin D3) coenzyme Q10 100 mg capsule (Co 300 mg PO DAILY 11/30/24 11/30/24 History Q-10) losartan 25 mg tablet 25 mg PO AMHS 11/30/24 11/30/24 History red beet 500 mg capsule 1,000 mg PO UD 11/30/24 11/30/24 History Patient History Medical History No pertinent family history Paroxysmal atrial fibrillation Atrial flutter with rapid ventricular response Surgical History No pertinent past surgical history Social History Smoking Status: Never smoker Second Hand Exposure: No; Do You Dip or Chew Tobacco: No; Tobacco Cessation Education Requested by Patient: No Hx Alcohol Use: Yes Alcohol type: beer Hx Substance Use: No Preferred Language: [place] Communication Ability: Effective Drawer In Hand Required: No Beliefs That Will Affect Care: None Current Living Situation: Spouse Other Information That Helps Us Care for You: No Feels Safe at Home: Yes Safety Concerns: Feels Safe At This Time Assistive Devices: Glasses and Hearing Aid - Bilateral Review of Systems Review of Systems: All systems reviewed & are unremarkable except as noted in HPI & below Physical Exam Constitutional: WD/WN, vitals as above no acute distress Eyes: PERRL, conjunctivae normal, anicteric sclerae ENMT: external ear and nose normal, oropharynx normal Neck: trachea midline, no thyromegaly + thick neck Respiratory: normal respiratory effort, lungs clear to auscultation Cardiovascular: Rate/Rhythm: + irregularly irregular Heart Sounds: normal S1 and normal S2; no gallop and no cardiac rub Vessels: no JVD Extremities: no edema Gastrointestinal (Abdomen): normal bowel sounds, soft, nontender, no hepatosplenomegaly Musculoskeletal: no cyanosis or clubbing, extremities motor strength 5/5 Neurologic: PERRL, EOMI, accommodation nl, no face palsy, no dysarthria Psychiatric: A+Ox3, euthymic affect Results & Data Vital Signs (Past 12 Hours) Vital Signs Temp Pulse Pulse Resp BP BP Pulse Ox 12/01/24 07:38 68 12/01/24 07:37 36.7 C 67 18 104/67 97 12/01/24 04:41 36.6 C 85 18 139/73 95 12/01/24 00:45 83 12/01/24 00:23 37.2 C 20 132/68 95 11/30/24 23:09 11/30/24 23:00 83 15 161/87 H 94 11/30/24 22:30 108 H 16 175/86 H 93 11/30/24 22:00 83 18 156/95 H 96 11/30/24 21:30 85 16 126/77 93 11/30/24 21:15 107 H 11/30/24 21:09 146 H 24 170/79 H 96 11/30/24 21:07 113 H O2 Del Method 12/01/24 07:38 12/01/24 07:37 Room Air 12/01/24 04:41 Room Air 12/01/24 00:45 12/01/24 00:23 Room Air 11/30/24 23:09 Room Air 11/30/24 23:00 Room Air 11/30/24 22:30 Room Air 11/30/24 22:00 Room Air 11/30/24 21:30 Room Air 11/30/24 21:15 11/30/24 21:09 Room Air 11/30/24 21:07 Laboratory Results Laboratory Results - last 24 hr 11/30/24 11/30/24 11/30/24 17:09 19:00 21:28 WBC 9.81 RBC 4.73 Hgb 14.8 Hct 43.7 MCV 92.4 MCH 31.3 MCHC 33.9 RDW Std Deviation 43.6 RDW Coeff of Dalia 12.8 Plt Count 200 MPV 9.2 L Immature Gran % (Auto) 0.3 Neut % (Auto) 71.3 Lymph % (Auto) 12.9 [place] % (Auto) 10.6 Eos % (Auto) 4.4 Baso % (Auto) 0.5 Neut # (Auto) 6.99 H Lymph # (Auto) 1.27 [place] # (Auto) 1.04 H Eos # (Auto) 0.43 Baso # (Auto) 0.05 Immature Gran # (Auto) 0.03 PT 11.8 INR 1.1 APTT 28 PTT Ratio 1.0 Sodium 139 Potassium 4.2 Chloride 105 Carbon Dioxide 32 Anion Gap 2 L BUN 18 Creatinine 1.31 Est Cr Clr Drug Dosing Not Reportable eGFR 57.12 BUN/Creatinine Ratio 13.7 Glucose 86 Calcium 9.0 Magnesium 2.0 Total Bilirubin 0.6 Direct Bilirubin 0.0 AST 26 ALT 25 Alkaline Phosphatase 83 Troponin I High Sens 66.6 H* 71.3 H* Total Protein 6.8 Albumin 4.6 Lipase 24 Urine Color Yellow Urine Appearance Clear Urine pH 7.0 Ur Specific [place] 1.017 Urine Protein Negative Urine Glucose (UA) Negative Urine Ketones Negative Urine Blood Negative Urine Nitrite Negative Urine Bilirubin Negative Urine Urobilinogen Negative Ur Leukocyte Esterase Negative 12/01/24 05:33 WBC 8.24 RBC 4.41 L Hgb 13.9 L Hct 40.4 L MCV 91.6 MCH 31.5 MCHC 34.4 RDW Std Deviation 43.3 RDW Coeff of Dalia 12.8 Plt Count 182 MPV 9.3 L Immature Gran % (Auto) 0.2 Neut % (Auto) 69.8 Lymph % (Auto) 15.0 [place] % (Auto) 10.4 Eos % (Auto) 4.1 Baso % (Auto) 0.5 Neut # (Auto) 5.74 Lymph # (Auto) 1.24 [place] # (Auto) 0.86 H Eos # (Auto) 0.34 Baso # (Auto) 0.04 Immature Gran # (Auto) 0.02 PT INR APTT PTT Ratio Sodium 139 Potassium 4.0 Chloride 107 Carbon Dioxide 28 Anion Gap 4 BUN 15 Creatinine 1.04 Est Cr Clr Drug Dosing 69.3 eGFR 75.35 BUN/Creatinine Ratio 14.4 Glucose 103 H Calcium 8.8 Magnesium Total Bilirubin Direct Bilirubin AST ALT Alkaline Phosphatase Troponin I High Sens 71.0 H* Total Protein Albumin Lipase Urine Color Urine Appearance Urine pH Ur Specific [place] Urine Protein Urine Glucose (UA) Urine Ketones Urine Blood Urine Nitrite Urine Bilirubin Urine Urobilinogen Ur Leukocyte Esterase
[2024-12-01] MEDS: CETIRIZINE HCL 10 MG TABLET PO SCH (09:40)
[2024-12-01] MEDS: MULTIVITAMIN TAB PO SCH (09:40)
[2024-12-01] MEDS: DOXAZosin MESYLATE TAB 2 MG TAB PO SCH ×2 (10:59→20:49)
--- NOTE | 2024-12-01 10:59 | Electrocardiogram Report ---
Test Reason : Blood Pressure : */* mmHG Vent. Rate : 159 BPM Atrial Rate : * BPM P-R Int : * ms QRS Dur : 100 ms QT Int : 294 ms P-R-T Axes : * 78 54 degrees QTcB Int : 478 ms Atrial flutter with 2 to 1 block Incomplete right bundle branch block When compared with ECG of 30-Aug-2024 09:31, Vent. rate has increased by 93 bpm T wave amplitude has decreased in Lateral leads Confirmed by Flash Richardson ([id number]) on 12/01/2024 10:58:45 AM Referred By: REFERRED SELF Confirmed By: Flash Richardson
--- NOTE | 2024-12-01 14:26 | Hospitalist Progress Note ---
Date of Service December 01, 2024 Assessment & Plan (1) Atrial fibrillation with RVR: Plan: Atrial flutter with rapid ventricular response Tachybradycardia syndrome Troponin elevation likely demand ischemia --ECHO 08/30/24: Small sized posterior wall motion abnormality with hypokinesis of the segments. EF 50 to 55%. Severe mitral annular calcification. Mild mitral regurgitation. Bradycardia with A-V alison blocking agents Metoprolol discontinued Appreciate cardiology input Plan for pacemaker placement with possible cardioversion on Sunday Consideration to be started on amiodarone post pacemaker insertion per cardiology Monitor for now On Eliquis for anticoagulation Check TSH Monitor and replete electrolytes as needed Hypertension Blood pressure variable Amlodipine, losartan on hold Also on doxazosin Monitor and adjust medications as needed CAD S/P stent PVD Continue atorvastatin Consider to place on low-dose metoprolol after pacemaker insertion Hyperlipidemia on statin DVT Px: Eliquis Code Status Full code Admission and Anticipated Discharge Date Admission Date: November 30, 2024 Subjective Patient is seen and examined at bedside Palpitations resolved Denies having chest pain, palpitation, dizziness, dyspnea, nausea, vomiting, abdominal pain Discussed with cardiology today Heart rate is controlled Review of Systems Review of Systems: All systems reviewed & are unremarkable except as noted in Subjective Physical Exam Physical Exam: Physical Exam: Vitals signs as noted above General Appearance:Moderately built and nourished, no apparent distress Head: normocephalic, Atraumatic Eyes: normal inspection, EOMI Neck: supple, Trachea midline Respiratory/Chest: Normal breath sounds, CTA, No accessory muscle use Cardiovascular: Irregularly irregular, No murmur Abdomen/GI:Soft, Non tender, Bowel sounds present Extremities/Musculoskeletal:normal inspection, Trace pedal edema Neurologic/Psych:AAOX3, grossly no focal neurological deficits Skin: normal color, warm Results & Data Results & Data Vital Signs (Past 12 Hours) Vital Signs Temp Pulse Pulse Resp BP Pulse Ox O2 Del Method 12/01/24 12:27 36.8 C 75 18 142/65 H 97 Room Air 12/01/24 09:37 68 116/74 12/01/24 07:38 68 12/01/24 07:37 36.7 C 67 18 104/67 97 Room Air 12/01/24 04:41 36.6 C 85 18 139/73 95 Room Air Laboratory Results Short CBC 11/30/24 12/01/24 Range/Units 17:09 05:33 WBC 9.81 8.24 (4.8-10.8) K/ul Hgb 14.8 13.9 L (14.0-18.0) g/dl Hct 43.7 40.4 L (42.0-52.0) % Plt Count 200 182 (130-400) K/uL BMP 11/30/24 12/01/24 17:09 05:33 Sodium 139 139 Potassium 4.2 4.0 Chloride 105 107 Carbon Dioxide 32 28 BUN 18 15 Creatinine 1.31 1.04 Glucose 86 103 H Calcium 9.0 8.8 Liver Function 11/30/24 Range/Units 17:09 Total Bilirubin 0.6 (0.2-1.0) mg/dl Direct Bilirubin 0.0 (0-0.2) mg/dl AST 26 (13-39) U/L ALT 25 (7-52) U/L Alkaline Phosphatase 83 (34-104) U/L Albumin 4.6 (3.4-5.0) gm/dl Urine 11/30/24 Range/Units 21:28 Urine Color Yellow Urine Appearance Clear (Clear) Urine pH 7.0 (4.5-7.5) Ur Specific [place] 1.017 (1.000-1.030) Urine Protein Negative (Negative) Urine Glucose (UA) Negative (Negative)
[2024-12-01 22:30] LABS: Magnesium 1.9 mg/dl (1.7-2.4)
[2024-12-01] MEDS: MAGNESIUM SULFATE / D5W 1 GM/100 ML BAG IV SCH (23:22)
--- NOTE | 2024-12-01 23:23 | Communication Note ---
Date of Service: December 01, 2024
[2024-12-01] MEDS: dilTIAZem HCl 5 MG/ML 5 ML VIAL IV STA (23:51)
[2024-12-01] MEDS: dilTIAZem HCL 30 MG TAB PO ONE (23:56)
[2024-12-02] MEDS: AMIODARONE 200 MG TAB PO SCH (06:07)
[2024-12-02 06:44] LABS: BUN Creatinine Ratio 13.2 (10-20); Calcium 8.8 mg/dl (8.6-10.3); Creatinine Clr Calc Pharmacy 55.9 ml/min; Magnesium 2.4 mg/dl (1.7-2.4); Potassium 4.2 mmol/L (3.5-5.1)
[2024-12-02 07:00] LABS: Thyroid Stimulating Hormone 2.421 uIu/ml (0.300-4.500)
--- NOTE | 2024-12-02 11:16 | Cardiology Progress Note ---
Date of Service December 02, 2024 Assessment & Plan (1) Tachy-yue syndrome: (2) Troponin I above reference range: (3) Atrial flutter with rapid ventricular response: Plan 74 year old male with atypical atrial flutter, with dynamic and very rapid ventricular response, minimally symptomatic, observed Tachy-Yue Syndrome. Patient with poor tolerance of AV alison blocking medications due to bradycardia as well as adverse reaction to metoprolol succinate (rash). Options of management discussed. Plan as outlined below Recommendations: * Continue low-dose oral amiodarone as prescribed, 200 mg 3 times per day, allowing elevated heart rates for now * NPO after midnight * Permanent pacemaker implantation and possible direct-current cardioversion post pacer in AM of 12/03/2024 * Continue anticoagulation with oral apixaban (Eliquis) 5 mg twice per day * ? Trial metoprolol tartrate post device implantation Admission and Anticipated Discharge Date Admission Date: November 30, 2024 Supervising Physician Co-Signing Physician Notes Patient seen and personally examined. Care and management as outlined above by advanced provider. Reviewed and personally endorsed 1. Atrial flutter with rapid ventricular response variable AV conduction with tachybradycardia syndrome. Low-dose amiodarone initiated. Tolerates rapid rates well though anxious when aware. Plan as outlined Discussed in detail with patient. Pacemaker followed by cardioversion in a.m. No additional medications this evening Continue anticoagulation throughout procedures Subjective Patient seen and examined. Chart, medications, telemetry reviewed. Notes having a rough night, observing elevated heart rates on telemetry, without significant associated symptoms. No chest pain, palpitations, shortness of breath, orthopnea, PND, or peripheral edema. Telemetry: Atrial flutter 120 bpm currently, occasionally up to 170 bpm. No significant bradycardia overnight. Notes prior rash with metoprolol succinate. Remotely prescribed metoprolol tartrate with fatigue, bradycardia. Physical Exam Physical Exam: General: A&Ox3. NAD. HENT: Normocephalic. Atraumatic. Eyes: PER. Conjunctiva pink, sclera clear. Neck: No JVD. No HJR. Heart: Regular, 120 bpm. No murmur. Lungs: Clear to auscultation. Abdomen: +BS. Soft. Nontender. No masses or organomegaly. Extremities: Thick, without significant edema. Limited neurological examination is without focal deficits. Pulses: Posterior tibial=1/4. Results & Data Vital Signs (Past 12 Hours) Vital Signs Temp Pulse Pulse Resp BP BP Pulse Ox 12/02/24 10:36 85 12/02/24 08:42 36.9 C 144 H 18 123/74 93 12/02/24 04:39 132 H 111/83 12/02/24 02:52 36.6 C 85 20 131/66 95 12/02/24 02:02 85 12/02/24 01:01 96 H 12/02/24 00:08 122 H 127/88 12/01/24 23:50 166 H 159/93 H 146/82 H O2 Del Method 12/02/24 10:36 12/02/24 08:42 Room Air 12/02/24 04:39 12/02/24 02:52 Room Air 12/02/24 02:02 12/02/24 01:01 12/02/24 00:08 12/01/24 23:50 Laboratory Results Comprehensive Metabolic Panel 12/02/24 Range/Units 06:01 Sodium 138 (136-145) mmol/L Potassium 4.2 (3.5-5.1) mmol/L Chloride 105 (98-107) mmol/L Carbon Dioxide 28 (21-32) mmol/L BUN 17 (6-23) mg/dl Creatinine 1.29 (0.6-1.4) mg/dl Glucose 106 H (70-99(Fasting)) mg/dl Calcium 8.8 (8.6-10.3) mg/dl Intake and Output 12/01/24 12/02/24 12/02/24 22:59 06:59 14:59 Intake Total 200 2015.25 400 / 2015.25 Output Total 650 / 1200 Balance 200 / 816.25 -250 / 816.25 Intake: IV 200 / 1056.25 Magnesium Sulfate / D5w 1 gm In 200 / 200 100 ml @ 50 mls/hr IV Q2H [place] Rx#:[id number] Oral 200 / 960 200 / 960 Output: Urine 650 / 1200 Other: # Unmeasured Voids 1 1 Weight 100.8 kg Weight Measurement Method Built in [facility]
--- NOTE | 2024-12-02 14:29 | Hospitalist Progress Note ---
Date of Service December 02, 2024 Assessment & Plan (1) Atrial fibrillation with RVR: Plan: Atrial flutter with rapid ventricular response Tachybradycardia syndrome Troponin elevation likely demand ischemia --ECHO 08/30/24: Small sized posterior wall motion abnormality with hypokinesis of the segments. EF 50 to 55%. Severe mitral annular calcification. Mild mitral regurgitation. Bradycardia with A-V alison blocking agents Metoprolol discontinued Appreciate cardiology input and recommendation Plan for pacemaker placement with possible cardioversion on Sunday Has been started on amiodarone On Eliquis for anticoagulation Check TSH- normal at 2.4-1 Renal function and electrolytes are unremarkable Remains stable without any significant symptoms Hypertension Blood pressure variable Amlodipine, losartan on hold Also on doxazosin Monitor and adjust medications as needed CAD S/P stent PVD Continue atorvastatin Consider to place on low-dose metoprolol after pacemaker insertion Hyperlipidemia on statin DVT Px: Eliquis Code Status Full code Admission and Anticipated Discharge Date Admission Date: November 30, 2024 Subjective 12/02/2024 The patient was seen and examined in telemetry. He has been stable but the heart rate has been going of more than 140-160 at times with ambulation He remains free from any cardiac symptoms Awaiting PPM placement tomorrow Review of Systems Review of Systems: All systems reviewed and are unremarkable except as noted below Physical Exam Physical Exam: Lying in bed without any acute distress Constitutional: well developed, well nourished and + obese; not ill appearing Eyes: PERRL, conjunctivae normal, anicteric sclerae ENMT: external ear and nose normal, oropharynx normal Neck: trachea midline, no thyromegaly Respiratory: no respiratory distress Auscultation: lungs clear to auscultation bilaterally Cardiovascular: Rate/Rhythm: + tachycardic and + irregularly irregular Heart Sounds: normal S1 and normal S2; no murmur Extremities: + edema ( trace edema bilaterally) Gastrointestinal (Abdomen): Inspection/Auscultation: normal bowel sounds; abdomen not distended Percussion/Palpation: abdomen soft; abdomen nontender Musculoskeletal: No acute arthritis involving any of the joint Neurologic: normal touch/pain/proprioception and moves all extremities; no focal motor deficits Psychiatric: A+Ox3, euthymic affect Lymphatic: no cervical or axillary lymphadenopathy Results & Data Results & Data Vital Signs (Past 12 Hours) Vital Signs Temp Pulse Pulse Resp BP Pulse Ox O2 Del Method 12/02/24 14:15 115 H 12/02/24 11:46 36.7 C 84 18 124/75 94 Room Air 12/02/24 10:36 85 12/02/24 08:42 36.9 C 144 H 18 123/74 93 Room Air 12/02/24 04:39 132 H 111/83 12/02/24 02:52 36.6 C 85 20 131/66 95 Room Air Laboratory Results [facility] 12/02/24 06:01 Sodium 138 Potassium 4.2 Chloride 105 Carbon Dioxide 28 BUN 17 Creatinine 1.29 Glucose 106 H Calcium 8.8 Medications Administered Current Inpatient Medications Acetaminophen (Acetaminophen 325 Mg Tab) 650 mg PO QID PRN PRN Reason: pain/fever Stop: 12/30/24 20:45 Amiodarone HCl (Amiodarone 200 Mg Tab) 200 mg PO TIDM [place] Stop: 01/01/25 05:59 Last Admin: 12/02/24 12:15 Dose: 200 mg Apixaban (Apixaban 5 Mg Tablet) 5 mg PO BID [place] Stop: 12/31/24 00:29 Last Admin: 12/02/24 08:45 Dose: 5 mg Atorvastatin Calcium (Atorvastatin 10 Mg Tab) 10 mg PO HS [place] Stop: 12/30/24 20:59 Last Admin: 12/01/24 20:49 Dose: 10 mg Cetirizine HCl (Cetirizine Hcl 10 Mg Tablet) 10 mg PO DAILY [place] Stop: 12/31/24 08:59 Last Admin: 12/02/24 08:45 Dose: 10 mg Doxazosin Mesylate (Doxazosin Mesylate Tab 2 Mg Tab) 2 mg PO HS [place] Stop: 12/31/24 20:59 Last Admin: 12/01/24 20:49 Dose: 2 mg Ezetimibe (Ezetimibe 10 Mg Tab) 10 mg PO HS [place] Stop: 12/30/24 20:59 Last Admin: 12/01/24 20:49 Dose: 10 mg Promethazine HCl (Phenergan) 6.25 mg in 50.25 mls @ 201 mls/hr IV Q6H PRN PRN Reason: Nausea And Vomiting Stop: 12/30/24 20:45 Losartan Potassium (Losartan Potassium 25 Mg Tab) 25 mg PO AMHS [place] Stop: 12/30/24 20:59 Last Admin: 12/01/24 10:59 Dose: Not Given Multivitamins (Multivitamin Tab) 1 tab PO QAM [place] Stop: 12/31/24 08:59 Last Admin: 12/02/24 08:45 Dose: 1 tab Oxycodone HCl (Oxycodone Hcl Ir 5 Mg Tab (Immediate Release)) 5 mg PO Q4H PRN PRN Reason: Pain Stop: 12/14/24 20:45
--- NOTE | 2024-12-03 05:46 | Electrocardiogram Report ---
Test Reason : Blood Pressure : */* mmHG Vent. Rate : 166 BPM Atrial Rate : * BPM P-R Int : * ms QRS Dur : 78 ms QT Int : 286 ms P-R-T Axes : * 90 65 degrees QTcB Int : 475 ms Probable Atrial flutter Rightward axis Nonspecific ST abnormality Abnormal ECG When compared with ECG of 30-Nov-2024 21:44, Vent. rate has increased by 84 bpm Confirmed by Flash Richardson ([id number]) on 12/03/2024 5:46:08 AM Referred By: REFERRED SELF Confirmed By: Flash Richardson
[2024-12-03 06:51] LABS: BUN Creatinine Ratio 13.2 (10-20); Calcium 8.9 mg/dl (8.6-10.3); Creatinine Clr Calc Pharmacy 49.8 ml/min; Magnesium 2.1 mg/dl (1.7-2.4); Potassium 4.4 mmol/L (3.5-5.1)
--- NOTE | 2024-12-03 11:20 | Cardiology Progress Note ---
Date of Service December 03, 2024 Assessment & Plan (1) Tachy-yue syndrome: (2) Troponin I above reference range: (3) Atrial flutter with rapid ventricular response: Plan 74 year old male with atypical atrial flutter, with dynamic and very rapid ventricular response, minimally symptomatic, observed Tachy-Yue Syndrome. Patient with poor tolerance of AV alison blocking medications due to bradycardia as well as adverse reaction to metoprolol succinate (rash). Options of management discussed. Plan as outlined below Recommendations: * Continue low-dose oral amiodarone as prescribed, 200 mg 3 times per day, allowing elevated heart rates for now * NPO after midnight * Permanent pacemaker implantation and possible direct-current cardioversion post pacer in AM of 12/03/2024 * Continue anticoagulation with oral apixaban (Eliquis) 5 mg twice per day 12/03/2024 Clinically stable. Tolerating amiodarone so far to date. Plan pacemaker possible cardioversion post procedure today Continue oral amiodarone Patient has remained on anticoagulation with apixaban without interruption All questions answered Admission and Anticipated Discharge Date Admission Date: November 30, 2024 Subjective Patient seen and personally examined. Slept well last night. No chest pain or tachypalpitations Remains in atypical flutter with heart rates approximately 100 with variable rate conduction. Review of Systems Review of Systems: All systems reviewed & are unremarkable except as noted in Subjective Physical Exam Constitutional: WD/WN, vitals as above no acute distress Eyes: PERRL, conjunctivae normal, anicteric sclerae ENMT: external ear and nose normal, oropharynx normal Neck: trachea midline, no thyromegaly + thick neck Respiratory: normal respiratory effort, lungs clear to auscultation Cardiovascular: Rate/Rhythm: + irregularly irregular Heart Sounds: normal S1 and normal S2; no gallop and no cardiac rub Vessels: no JVD Extremities: no edema Gastrointestinal (Abdomen): normal bowel sounds, soft, nontender, no hepatosplenomegaly Musculoskeletal: no cyanosis or clubbing, extremities motor strength 5/5 Neurologic: PERRL, EOMI, accommodation nl, no face palsy, no dysarthria Psychiatric: A+Ox3, euthymic affect Results & Data Vital Signs (Past 12 Hours) Vital Signs Temp Pulse Pulse Resp BP Pulse Ox O2 Del Method 12/03/24 08:17 36.9 C 101 H 18 124/68 96 Room Air 12/03/24 08:00 97 H 12/03/24 08:00 Room Air 12/03/24 02:33 36.9 C 110 H 18 122/77 94 Room Air Laboratory Results Laboratory Results - last 24 hr 12/03/24 05:57 Sodium 139 Potassium 4.4 Chloride 104 Carbon Dioxide 31 Anion Gap 4 BUN 19 Creatinine 1.44 H Est Cr Clr Drug Dosing 49.8 eGFR 50.99 BUN/Creatinine Ratio 13.2 Glucose 101 H Calcium 8.9 Magnesium 2.1
--- NOTE | 2024-12-03 12:01 | Hospitalist Progress Note ---
Date of Service December 03, 2024 Assessment & Plan (1) Atrial fibrillation with RVR: Plan: Atrial flutter with rapid ventricular response Tachybradycardia syndrome Troponin elevation likely demand ischemia --ECHO 08/30/24: Small sized posterior wall motion abnormality with hypokinesis of the segments. EF 50 to 55%. Severe mitral annular calcification. Mild mitral regurgitation. Bradycardia with A-V alison blocking agents Metoprolol discontinued Appreciate cardiology input and recommendation Plan for pacemaker placement with possible cardioversion on Sunday Has been started on amiodarone On Eliquis for anticoagulation Check TSH- normal at 2.4-1 Renal function and electrolytes are unremarkable Remains stable without any significant symptoms Remains asymptomatic and will have PPM placement today and possible cardioversion Likely discharge tomorrow Hypertension Blood pressure variable Amlodipine, losartan on hold Also on doxazosin Monitor and adjust medications as needed Blood pressure is controlled CAD S/P stent PVD Continue atorvastatin Consider to place on low-dose metoprolol after pacemaker insertion Hyperlipidemia on statin DVT Px: Eliquis Code Status Full code Admission and Anticipated Discharge Date Admission Date: November 30, 2024 Subjective 12/02/2024 The patient was seen and examined in telemetry. He has been stable but the heart rate has been going of more than 140-160 at times with ambulation He remains free from any cardiac symptoms Awaiting PPM placement tomorrow 12/03/2024 The patient was seen and examined in telemetry unit He has been stable without any more tacky or significant bradycardia and no cardiac symptoms He will have permanent pacemaker placement today Review of Systems Review of Systems: All systems reviewed and are unremarkable except as noted below Physical Exam Physical Exam: Lying in bed without any acute distress Constitutional: well developed, well nourished and + obese; not ill appearing Eyes: PERRL, conjunctivae normal, anicteric sclerae ENMT: external ear and nose normal, oropharynx normal Neck: trachea midline, no thyromegaly Respiratory: no respiratory distress Auscultation: lungs clear to auscultation bilaterally Cardiovascular: Rate/Rhythm: + tachycardic and + irregularly irregular Heart Sounds: normal S1 and normal S2; no murmur Extremities: + edema ( trace edema bilaterally) Gastrointestinal (Abdomen): Inspection/Auscultation: normal bowel sounds; abdomen not distended Percussion/Palpation: abdomen soft; abdomen nontender Neurologic: normal touch/pain/proprioception and moves all extremities; no focal motor deficits Psychiatric: A+Ox3, euthymic affect Lymphatic: no cervical or axillary lymphadenopathy Results & Data Results & Data Vital Signs (Past 12 Hours) Vital Signs Temp Pulse Pulse Resp BP Pulse Ox O2 Del Method 12/03/24 08:17 36.9 C 101 H 18 124/68 96 Room Air 12/03/24 08:00 97 H 12/03/24 08:00 Room Air 12/03/24 02:33 36.9 C 110 H 18 122/77 94 Room Air Laboratory Results BMP 12/03/24 05:57 Sodium 139 Potassium 4.4 Chloride 104 Carbon Dioxide 31 BUN 19 Creatinine 1.44 H Glucose 101 H Calcium 8.9 Medications Administered Current Inpatient Medications Acetaminophen (Acetaminophen 325 Mg Tab) 650 mg PO QID PRN PRN Reason: pain/fever Stop: 12/30/24 20:45 Amiodarone HCl (Amiodarone 200 Mg Tab) 200 mg PO TIDM [place] Stop: 01/01/25 05:59 Last Admin: 12/03/24 10:49 Dose: 200 mg Apixaban (Apixaban 5 Mg Tablet) 5 mg PO BID [place] Stop: 12/31/24 00:29 Last Admin: 12/02/24 20:01 Dose: 5 mg Atorvastatin Calcium (Atorvastatin 10 Mg Tab) 10 mg PO HS [place] Stop: 12/30/24 20:59 Last Admin: 12/02/24 20:02 Dose: 10 mg Cetirizine HCl (Cetirizine Hcl 10 Mg Tablet) 10 mg PO DAILY [place] Stop: 12/31/24 08:59 Last Admin: 12/03/24 10:06 Dose: Not Given Doxazosin Mesylate (Doxazosin Mesylate Tab 2 Mg Tab) 2 mg PO HS [place] Stop: 12/31/24 20:59 Last Admin: 12/02/24 20:01 Dose: 2 mg Ezetimibe (Ezetimibe 10 Mg Tab) 10 mg PO HS [place] Stop: 12/30/24 20:59 Last Admin: 12/02/24 20:01 Dose: 10 mg Promethazine HCl (Phenergan) 6.25 mg in 50.25 mls @ 201 mls/hr IV Q6H PRN PRN Reason: Nausea And Vomiting Stop: 12/30/24 20:45 Losartan Potassium (Losartan Potassium 25 Mg Tab) 25 mg PO AMHS [facility] Stop: 12/30/24 20:59 Last Admin: 12/01/24 10:59 Dose: Not Given Multivitamins (Multivitamin Tab) 1 tab PO QAM [facility] Stop: 12/31/24 08:59 Last Admin: 12/03/24 10:06 Dose: Not Given Oxycodone HCl (Oxycodone Hcl Ir 5 Mg Tab (Immediate Release)) 5 mg PO Q4H PRN PRN Reason: Pain Stop: 12/14/24 20:45
--- NOTE | 2024-12-03 14:47 | History & Physical Bridge Note ---
Date of Service December 03, 2024 History & Physical Bridge Note I have examined the patient, reviewed the History & Physical and in the interval since the performance of the History & Physical I have noted the following changes of clinical significance: pt with tachy-yue syndrome recommended dual chamber pacemaker and cardioversion prior to hospital discharge. I discussed the procedure and potential risks with the patient; he expressed an understanding and consents signed. he reports he has not missed any eliquis in the past month.
--- NOTE | 2024-12-03 14:48 | Pre Anesthesia Assessment ---
Date of Service December 03, 2024 Pre Sedation Assessment Vital Signs Temp Pulse Pulse Resp BP Pulse Ox O2 Del Method 12/03/24 14:17 36.4 C L 88 18 162/97 H 96 Room Air 12/03/24 08:17 36.9 C 101 H 18 124/68 96 Room Air 12/03/24 08:00 97 H 12/03/24 08:00 Room Air 12/03/24 02:33 36.9 C 110 H 18 122/77 94 Room Air 12/02/24 23:00 97 H 12/02/24 22:47 36.8 C 90 150/83 H 94 Room Air 12/02/24 19:34 37.0 C 83 18 138/99 95 Room Air 12/02/24 16:02 36.7 C 92 H 18 135/81 96 Room Air Cardiovascular + tachycardic and + irregularly irregular Respiratory normal respiratory effort, lungs clear to auscultation Pre-Sedation Airway Assessment Smoking Status: Never smoker Hx Sleep Apnea: No Short, Thick Neck: No Thyromental Distance: > or= 3.5 Finger Breadths Oral Cavity: + WNL Mallampati Class: III ASA: ASA3 NPO Status Date of Last Intake of Fluids: 12/02/24 Time of Last Intake of Fluids: 20:00 Date of Last Intake of Solid Food: 12/02/24 Time of Last Intake of Solid Foods: 20:00 Procedure Planning Contraindications for Sedation: none Current Medications Reviewed: Yes Notes The planned sedation has been discussed with the patient. Informed Consent was obtained. I have identified the patient, determined the appropriateness of sedation and have assessed the patient immediately prior to the procedure. All medicine(s) and interventions are by my order.
[2024-12-03] MEDS: LIDOCAINE 1% LOCAL 20 ML VIAL ONE ×2 (15:37→15:39)
[2024-12-03] MEDS: BUPIVACAINE 0.25% PF 30 ML VIAL ONE ×2 (15:37→15:38)
[2024-12-03] MEDS: CLINDAMYCIN 900 MG/D5W 50 ML BAG IV ONE (15:38)
[2024-12-03] MEDS: VANCOMYCIN HCL 1000MG/20ML VIAL ONE ×2 (15:38→15:39)
[2024-12-03] MEDS: WATER, STERILE FOR INJ 10 ML VIAL ONE ×2 (15:38→15:39)
[2024-12-03] MEDS: fentaNYL citrate PF 100 MCG/2 ML VIAL ONE ×2 (16:05→16:07)
[2024-12-03] MEDS: MIDAZOLAM HCL 1 MG/ML 2ML VIAL ONE ×3 (16:06→16:07)
--- NOTE | 2024-12-03 16:11 | Post Anesthesia Assessment ---
Date of Service December 03, 2024 Post Sedation Assessment Vital Signs Temp Pulse Pulse Resp BP Pulse Ox O2 Del Method 12/03/24 14:17 36.4 C L 88 18 162/97 H 96 Room Air 12/03/24 08:17 36.9 C 101 H 18 124/68 96 Room Air 12/03/24 08:00 97 H 12/03/24 08:00 Room Air 12/03/24 02:33 36.9 C 110 H 18 122/77 94 Room Air 12/02/24 23:00 97 H 12/02/24 22:47 36.8 C 90 150/83 H 94 Room Air 12/02/24 19:34 37.0 C 83 18 138/99 95 Room Air Recovery Score Activity: Moves 4 extremities Respiration: Deep Breath/Cough Circulation: +/-20% PreAnes Value Consciousness: Fully Awake Oxygen Saturation: > 92% On Room Air Discharge Sedation Level of Care: Fast Track Phase II Post Sedation Plan On clinical assessment, the patient appears to have tolerated the sedation wi thout complications. Patient is recovering as anticipated. Patient will continue to be monitored by nursing and may be discharged when sedation discharge criteria are met per below protocol. Upon Completions of procedure up to 15 minutes continue every 5 minute vital signs and the P.A.R. score; then discharge to a Phase I or Fast Track to Phase II per the following guidelines: * Discharge Patient to appropriate Phase II area if PAR is 8 or greater or return to pre- procedure baseline. The post - procedure orders will be as directed. * If PAR score is less than 8 or not return to pre-procedure baseline then patient will follow Phase I monitoring till PAR is reached for Phase II. The Phase I may be done in procedure room or may call to secure a Phase I area. * If naloxone or flumazenil are used for reversal, hold in Phase I for continued monitoring from when last reversal dose was given for a minimum of 60 minutes or longer pending the nurse and/or physician discretion of patient condition before discharge to Phase II. Please call the Sedation Physician to re-evaluate and complete post-note for discharge to Phase II area. Do NOT discharge from procedure sedation or Phase 1 until post- sedation evaluation note is complete by procedure /sedation MD Sedation Discharge Instructions to be given to the patient at discharge to home.
--- NOTE | 2024-12-03 18:50 | XRay Report ---
EXAM: X-ray chest one-view portable CLINICAL HISTORY: Status post PPM ensure no pneumothorax PRIORS: 11/30/2024 TECHNIQUE: Frontal view chest FINDINGS: A left-sided cardiac device with 2 leads now present, appearing in the interval. No pneumothorax. No airspace consolidation, effusion or congestive changes. Heart size is top normal. No pneumothorax. Trachea is patent. Osseous structures demonstrate no acute abnormality. No radiopaque foreign body. IMPRESSION: Interval placement of left-sided cardiac device with no pneumothorax. Electronically signed by Niharika Umana 12-03-2024 6:49 PM
[2024-12-03 19:33] VITALS: O2SAT 94
[2024-12-03] MEDS: oxyCODONE HCL IR 5 MG TAB (IMMEDIATE RELEASE) PO PRN (21:39)
[2024-12-04 07:48] LABS: BUN Creatinine Ratio 15.8 (10-20); Calcium 9.1 mg/dl (8.6-10.3); Creatinine Clr Calc Pharmacy 54.1 ml/min; Magnesium 2.1 mg/dl (1.7-2.4); Potassium 4.8 mmol/L (3.5-5.1)
[2024-12-04] MEDS: ACETAMINOPHEN 325 MG TAB PO PRN (08:22)
[2024-12-04 12:02] VITALS: RESP 17; TEMP 97.7
--- NOTE | 2024-12-04 12:08 | Cardiology Progress Note ---
Date of Service December 04, 2024 Assessment & Plan (1) Tachy-yue syndrome: (2) Troponin I above reference range: (3) Atrial flutter with rapid ventricular response: Plan 74 year old male with atypical atrial flutter, with dynamic and very rapid ventricular response, minimally symptomatic, observed Tachy-Yue Syndrome. Patient with poor tolerance of AV alison blocking medications due to bradycardia as well as adverse reaction to metoprolol succinate (rash). Options of management discussed. Plan as outlined below Recommendations: * Continue low-dose oral amiodarone as prescribed, 200 mg 3 times per day, allowing elevated heart rates for now * NPO after midnight * Permanent pacemaker implantation and possible direct-current cardioversion post pacer in AM of 12/03/2024 * Continue anticoagulation with oral apixaban (Eliquis) 5 mg twice per day 12/03/2024 Clinically stable. Tolerating amiodarone so far to date. Plan pacemaker possible cardioversion post procedure today Continue oral amiodarone Patient has remained on anticoagulation with apixaban without interruption All questions answered 12/04/2024 1. Paroxysmal atrial fibrillation flutter with poor tolerance, tachybradycardia syndrome status post synchronized electrical cardioversion, on amiodarone, continue 200 mg twice per day for 1 week then daily 2. Tachybradycardia syndrome status post dual-chamber pacemaker insertion 12/03/2024 with normal device function 3. Hypertension: Resume losartan 25 mg nightly 4. Dyslipidemia: Resume prehospital atorvastatin and ezetimibe dosing Plan follow-up cardiology 2 weeks time with EKG, EP/pacemaker clinic 1 month Admission and Anticipated Discharge Date Admission Date: November 30, 2024 Subjective Patient seen and examined, chart, medications, telemetry reviewed No further atrial fibrillation since cardioversion yesterday. Feels well but blood pressure elevated this morning. No dizziness or lightheadedness mild irritation at pacemaker site otherwise no complaint\ Pacemaker functioning normally Review of Systems Review of Systems: All systems reviewed & are unremarkable except as noted in Subjective Physical Exam Constitutional: WD/WN, vitals as above no acute distress Eyes: PERRL, conjunctivae normal, anicteric sclerae ENMT: external ear and nose normal, oropharynx normal Neck: trachea midline, no thyromegaly + thick neck Respiratory: normal respiratory effort, lungs clear to auscultation Cardiovascular: Rate/Rhythm: regular rate and regular rhythm Heart Sounds: normal S1 and normal S2; no gallop and no cardiac rub Vessels: no JVD Extremities: no edema Chest (Breasts): Chest: + pacemaker (Site intact without irritation or hematoma) Gastrointestinal (Abdomen): normal bowel sounds, soft, nontender, no hepatosplenomegaly Musculoskeletal: no cyanosis or clubbing, extremities motor strength 5/5 Neurologic: PERRL, EOMI, accommodation nl, no face palsy, no dysarthria Psychiatric: A+Ox3, euthymic affect Results & Data Vital Signs (Past 12 Hours) Vital Signs Temp Pulse Resp BP Pulse Ox O2 Del Method 12/04/24 12:01 36.5 C 79 17 151/81 H 94 Room Air 12/04/24 07:28 91 H 18 189/89 H 94 Room Air 12/04/24 03:19 36.7 C 87 20 180/94 H 94 Nasal Cannula Laboratory Results Laboratory Results - last 24 hr 12/04/24 06:50 Sodium 137 Potassium 4.8 Chloride 103 Carbon Dioxide 28 Anion Gap 6 BUN 21 Creatinine 1.33 Est Cr Clr Drug Dosing 54.1 eGFR 56.09 BUN/Creatinine Ratio 15.8 Glucose 106 H Calcium 9.1 Magnesium 2.1
--- NOTE | 2024-12-04 12:10 | Hospitalist Progress Note ---
Date of Service December 04, 2024 Assessment & Plan (1) Atrial fibrillation with RVR: Plan: Atrial flutter with rapid ventricular response Tachybradycardia syndrome Troponin elevation likely demand ischemia --ECHO 08/30/24: Small sized posterior wall motion abnormality with hypokinesis of the segments. EF 50 to 55%. Severe mitral annular calcification. Mild mitral regurgitation. Bradycardia with A-V alison blocking agents Metoprolol discontinued Appreciate cardiology input and recommendation Plan for pacemaker placement with possible cardioversion on Sunday Has been started on amiodarone On Eliquis for anticoagulation Check TSH- normal at 2.4-1 Renal function and electrolytes are unremarkable Remains stable without any significant symptoms Remains asymptomatic and will have PPM placement today and possible cardioversion Status post PPM placement on 12/03/2024 and he has been stable and remains free from any symptoms except some pain at the pacemaker implantation site Pacemaker was interrogated and he was reviewed by the lacquer shader and will be discharged this afternoon Hypertension Blood pressure variable Amlodipine, losartan on hold Also on doxazosin Monitor and adjust medications as needed Blood pressure is controlled His losartan has been restarted and the blood pressure is stable to go CAD S/P stent PVD Continue atorvastatin Consider to place on low-dose metoprolol after pacemaker insertion Hyperlipidemia on statin DVT Px: Eliquis Code Status Full code Admission and Anticipated Discharge Date Admission Date: November 30, 2024 Subjective 12/02/2024 The patient was seen and examined in telemetry. He has been stable but the heart rate has been going of more than 140-160 at times with ambulation He remains free from any cardiac symptoms Awaiting PPM placement tomorrow 12/03/2024 The patient was seen and examined in telemetry unit He has been stable without any more tacky or significant bradycardia and no cardiac symptoms He will have permanent pacemaker placement today 12/04/2024 The patient was seen and examined in telemetry unit He is status post permanent pacemaker placement yesterday 12/03/2024 He has been feeling much better noted to have high blood pressure early this morning which is controlled now He will be discharged this afternoon Review of Systems Review of Systems: All systems reviewed and are unremarkable except as noted below Physical Exam Physical Exam: Lying in bed without any acute distress Constitutional: well developed, well nourished and + obese; not ill appearing Eyes: PERRL, conjunctivae normal, anicteric sclerae ENMT: external ear and nose normal, oropharynx normal Neck: trachea midline, no thyromegaly Respiratory: no respiratory distress Auscultation: lungs clear to auscultation bilaterally Cardiovascular: Rate/Rhythm: + tachycardic and + irregularly irregular Heart Sounds: normal S1 and normal S2; no murmur Extremities: + edema ( trace edema bilaterally) Chest (Breasts): Additional Comments: pacemaker implantation site is tender to palpate Gastrointestinal (Abdomen): Inspection/Auscultation: normal bowel sounds; abdomen not distended Percussion/Palpation: abdomen soft; abdomen nontender Neurologic: normal touch/pain/proprioception and moves all extremities; no focal motor deficits Psychiatric: A+Ox3, euthymic affect Lymphatic: no cervical or axillary lymphadenopathy Results & Data Results & Data Vital Signs (Past 12 Hours) Vital Signs Temp Pulse Resp BP Pulse Ox O2 Del Method 12/04/24 12:01 36.5 C 79 17 151/81 H 94 Room Air 12/04/24 07:28 91 H 18 189/89 H 94 Room Air 12/04/24 03:19 36.7 C 87 20 180/94 H 94 Nasal Cannula Laboratory Results [facility] 12/04/24 06:50 Sodium 137 Potassium 4.8 Chloride 103 Carbon Dioxide 28 BUN 21 Creatinine 1.33 Glucose 106 H Calcium 9.1 Medications Administered Current Inpatient Medications Acetaminophen (Acetaminophen 325 Mg Tab) 650 mg PO QID PRN PRN Reason: pain/fever Stop: 12/30/24 20:45 Last Admin: 12/04/24 08:22 Dose: 650 mg Amiodarone HCl (Amiodarone 200 Mg Tab) 200 mg PO TIDM [place] Stop: 01/01/25 05:59 Last Admin: 12/04/24 07:27 Dose: 200 mg Apixaban (Apixaban 5 Mg Tablet) 5 mg PO BID [place] Stop: 12/31/24 00:29 Last Admin: 12/04/24 08:23 Dose: 5 mg Atorvastatin Calcium (Atorvastatin 10 Mg Tab) 10 mg PO HS [place] Stop: 12/30/24 20:59 Last Admin: 12/03/24 20:22 Dose: 10 mg Cetirizine HCl (Cetirizine Hcl 10 Mg Tablet) 10 mg PO DAILY [place] Stop: 12/31/24 08:59 Last Admin: 12/04/24 08:23 Dose: 10 mg Doxazosin Mesylate (Doxazosin Mesylate Tab 2 Mg Tab) 2 mg PO HS [facility] Stop: 12/31/24 20:59 Last Admin: 12/03/24 20:23 Dose: 2 mg Ezetimibe (Ezetimibe 10 Mg Tab) 10 mg PO HS [facility] Stop: 12/30/24 20:59 Last Admin: 12/03/24 20:22 Dose: 10 mg Promethazine HCl (Phenergan) 6.25 mg in 50.25 mls @ 201 mls/hr IV Q6H PRN PRN Reason: Nausea And Vomiting Stop: 12/30/24 20:45 Losartan Potassium (Losartan Potassium 25 Mg Tab) 25 mg PO AMHS [facility] Stop: 12/30/24 20:59 Last Admin: 12/04/24 08:00 Dose: 25 mg Multivitamins (Multivitamin Tab) 1 tab PO QAM [facility] Stop: 12/31/24 08:59 Last Admin: 12/04/24 08:23 Dose: 1 tab Oxycodone HCl (Oxycodone Hcl Ir 5 Mg Tab (Immediate Release)) 5 mg PO Q4H PRN PRN Reason: Pain Stop: 12/14/24 20:45 Last Admin: 12/03/24 21:39 Dose: 5 mg
[2024-12-04 12:38] VITALS: BP 161/86; PULSE 79
--- NOTE | 2024-12-04 21:43 | Electrocardiogram Report ---
Test Reason : Blood Pressure : */* mmHG Vent. Rate : 109 BPM Atrial Rate : * BPM P-R Int : * ms QRS Dur : 96 ms QT Int : 316 ms P-R-T Axes : * 78 70 degrees QTcB Int : 425 ms Atrial flutter with premature ventricular or aberrantly conducted complexes Incomplete right bundle branch block Abnormal ECG When compared with ECG of 30-Nov-2024 16:48, Vent. rate has decreased by 50 bpm Confirmed by Flash Richardson ([id number]) on 12/04/2024 9:43:26 PM Referred By: REFERRED SELF Confirmed By: Flash Richardson
--- NOTE | 2024-12-04 21:44 | Electrocardiogram Report ---
Test Reason : Blood Pressure : */* mmHG Vent. Rate : 81 BPM Atrial Rate : 81 BPM P-R Int : 176 ms QRS Dur : 100 ms QT Int : 336 ms P-R-T Axes : * 70 69 degrees QTcB Int : 390 ms Atrial flutter Incomplete right bundle branch block Borderline ECG When compared with ECG of 30-Nov-2024 16:58, No significant change Confirmed by Flash Richardson ([id number]) on 12/04/2024 9:43:45 PM Referred By: REFERRED SELF Confirmed By: Flash Richardson
--- NOTE | 2024-12-04 21:44 | Electrocardiogram Report ---
Test Reason : Blood Pressure : */* mmHG Vent. Rate : 116 BPM Atrial Rate : 375 BPM P-R Int : * ms QRS Dur : 80 ms QT Int : 316 ms P-R-T Axes : * 76 70 degrees QTcB Int : 439 ms Atrial flutter When compared with ECG of 30-Nov-2024 16:59, No significant change Confirmed by Flash Richardson ([id number]) on 12/04/2024 9:44:04 PM Referred By: REFERRED SELF Confirmed By: Flash Richardson
--- NOTE | 2024-12-04 21:44 | Electrocardiogram Report ---
Test Reason : Blood Pressure : */* mmHG Vent. Rate : 82 BPM Atrial Rate : 357 BPM P-R Int : * ms QRS Dur : 80 ms QT Int : 354 ms P-R-T Axes : 107 44 59 degrees QTcB Int : 413 ms Atrial flutter Abnormal ECG When compared with ECG of 30-Nov-2024 18:52, No significant change Confirmed by Flash Richardson ([id number]) on 12/04/2024 9:44:37 PM Referred By: REFERRED SELF Confirmed By: Flash Richardson
--- NOTE | 2024-12-04 21:45 | Electrocardiogram Report ---
Test Reason : Blood Pressure : */* mmHG Vent. Rate : 81 BPM Atrial Rate : 81 BPM P-R Int : 202 ms QRS Dur : 108 ms QT Int : 408 ms P-R-T Axes : 50 0 27 degrees QTcB Int : 473 ms Normal sinus rhythm Incomplete right bundle branch block Inferior infarct , age undetermined Abnormal ECG When compared with ECG of 01-Dec-2024 23:36, Vent. rate has decreased by 85 bpm Incomplete right bundle branch block is now Present Inferior infarct is now Present Confirmed by Flash Richardson ([id number]) on 12/04/2024 9:45:22 PM Referred By: REFERRED SELF Confirmed By: Flash Richardson
--- NOTE | 2024-12-05 08:17 | Discharge Summary ---
Date of Service December 05, 2024 Admission HPI Per Admitting Provider History obtained from patient, family, and records. Medical history significant for CAD status post stent, atrial flutter on Eliquis, sinus bradycardia as per records, mild MR, PVD, hypertension, hyperlipidemia, skin cancer as per records, chronic pain. Last confinement August 2024 for rapid atrial flutter. Patient converted to NSR prior to discharge. Patient discharged on Toprol XL and Eliquis course. Patient Toprol weaned off outpatient due to pruritic rash concerns for medication. 2 days ago, patient noted fast heartbeat at home on BP check. Blood pressure noted to be low. No chest pain, no SOB, no unusual cough symptoms. Usual sinusitis symptoms. Blood pressure and heartbeat improved after leg elevation as per . Today, patient noted achy right-sided abdominal discomfort without diarrhea or constipation symptoms. Palpitations noted at home. Patient denies chest pain, SOB, headache symptoms. Compliant with medications. Patient noted to be in SVT, rate 200s upon arrival at the ER. SBP 150s. Patient given adenosine and diltiazem boluses at the ER. Cardizem infusion initiated after rapid atrial flutter rhythm, heart rate 160s, noted upon patient standing up to use urinal at the ER. Medical History as above Surgical History : None Family History : DM, lung cancer, dementia Personal/Social history : Non-smoker, occasional EtOH intake, retired airport employee Admission Exam Per Admitting Provider Physical Exam: GENERAL: Comfortable, slightly anxious, obese, no respiratory distress SKIN: Normal color, warm HEENT: The spectacle, [place] palpebral conjunctivae, no ptosis, moist buccal mucosa NECK : Supple, short neck, no tenderness CHEST : CTA, no tenderness HEART : Tachycardic, no obvious murmurs ABDOMEN: Some distention, minimal right sided abdominal tenderness EXTREMITIES : Minimal LE swelling, no LE tenderness, palpable pulses, no other conspicuous deformities noted NEUROLOGIC : Coherent, no facial asymmetry, no other gross focality Principal Diagnosis Tachybradycardia syndrome status post PPM placement Discharge Exam Lying in bed without any acute distress Constitutional well developed, well nourished and + obese; not ill appearing Eyes PERRL, conjunctivae normal, anicteric sclerae ENMT external ear and nose normal, oropharynx normal Neck trachea midline, no thyromegaly Respiratory no respiratory distress Auscultation: lungs clear to auscultation bilaterally Cardiovascular Rate/Rhythm: + tachycardic and + irregularly irregular Heart Sounds: normal S1 and normal S2; no murmur Extremities: + edema ( trace edema bilaterally) Gastrointestinal (Abdomen) Inspection/Auscultation: normal bowel sounds; abdomen not distended Percussion/Palpation: abdomen soft; abdomen nontender Neurologic normal touch/pain/proprioception and moves all extremities; no focal motor deficits Psychiatric A+Ox3, euthymic affect Lymphatic no cervical or axillary lymphadenopathy Discharge Data Allergies Allergy/AdvReac Type Severity Reaction Status Date / Time Penicillins Allergy Unknown rash Unverified 12/03/24 14:20 (notes of "synthetic penicillin" ) metoprolol Allergy Rash Verified 12/03/24 14:20 Consultations 11/30/24 18:55 ED Decision to Admit Stat 12/01/24 00:13 Consult Cardiology Routine Procedures Performed Operation Date: 12/03/24 13:30 Actual Procedures p Pacer with A/V Leads (Dual) - Meri Appiah DO s Venogram, Unilateral - Meri Apipah DO Ordered Studies 11/30/24 20:45 CT Abd and Pelvis [CT abd pelvis IV con only] Stat 12/03/24 06:45 EP Lab Images for PACS ONCE Hospital Course (1) Atrial fibrillation with RVR: Atrial flutter with rapid ventricular response Tachybradycardia syndrome Troponin elevation likely demand ischemia --ECHO 08/30/24: Small sized posterior wall motion abnormality with hypokinesis of the segments. EF 50 to 55%. Severe mitral annular calcification. Mild mitral regurgitation. Bradycardia with A-V alison blocking agents Metoprolol discontinued Appreciate cardiology input and recommendation Plan for pacemaker placement with possible cardioversion on Sunday Has been started on amiodarone On Eliquis for anticoagulation Check TSH- normal at 2.4-1 Renal function and electrolytes are unremarkable Remains stable without any significant symptoms Remains asymptomatic and will have PPM placement today and possible cardioversion Status post PPM placement on 12/03/2024 and he has been stable and remains free from any symptoms except some pain at the pacemaker implantation site Pacemaker was interrogated and he was reviewed by the wire photo operator news and will be discharged this afternoon Hypertension Blood pressure variable Amlodipine, losartan on hold Also on doxazosin Monitor and adjust medications as needed Blood pressure is controlled His losartan has been restarted and the blood pressure is stable to go CAD S/P stent PVD Continue atorvastatin Consider to place on low-dose metoprolol after pacemaker insertion Hyperlipidemia on statin DVT Px: Eliquis Code Status Full code Total Time Total Time Spent Total Time Spent (In Minutes): 35 Minutes Discharge Plan Discharge Items Patient Disposition: Home - Self-Care Reason For Visit: AF Discharge Diagnosis: Tachybradycardia syndrome status post PPM placement Condition on Discharge: Fair Activity: As commented below Activity Comment: do not raise the left elbow over the left shoulder for 1 month Lifting: No more than 10 pounds Lifting Comment: do not lift more than 10 pounds with the left arm for 2 weeks Bathing: Keep incision dry Bathing Comment: keep dressing on & dry until wound check Non-emergency contact: Primary Care Provider Call non-emergency contact if: you have any medication questions and your symptoms worsen Follow-up/Referrals: Maia Oliva DO [Primary Care Provider] - 12/11/24 10:20 am (Date & Time 12/11/2024 10:20 AM Provider: Nicolas Koch MD [facility] ) Diet: Heart Healthy Addtl Attending Provider Instructions: Do not raise the left elbow over the left shoulder for 1 month Do not lift more than 10 pounds with the left arm for 2 weeks Keep dressing on & dry until wound check-no shower Device and wound check at [facility] Cardiology someone will call you with a day and time Pending Studies at Discharge: No Stand-Alone Forms: [facility] [employer], Smoking Cessation Medications and DC Order Prescriptions: New amiodarone 200 mg Tablet 200 mg PO UD Qty: 37 0RF Rx Instructions: 1 tablet twice daily for 7 days and then 1 tablet daily to continue Continued multivitamin Tablet 1 tab PO QAM atorvastatin 10 mg tablet 10 mg PO HS doxazosin 2 mg tablet 2 mg PO QAM ezetimibe 10 mg tablet 10 mg PO HS Eliquis 5 mg tablet 5 mg PO BID Qty: 60 0RF losartan 25 mg tablet 25 mg PO AMHS coenzyme Q10 [Co Q-10] 100 mg Capsule 300 mg PO DAILY cetirizine [Allergy Relief (cetirizine)] 10 mg Tablet 10 mg PO DAILY red beet 500 mg Capsule 1,000 mg PO DAILY niacin 500 mg Tablet 500 mg PO DAILY Discharge Orders: Discharge Order (Routine); Ordered 12/04/24 Ordered By: Smita Springer/Other Patient Handouts: Amiodarone Oral Tablet, Cardioversion Dc Admission Data Admit Date/Time: 11/30/24 20:45 Attending Provider: Smita Fletcher Admit Provider: Lucas Magaña Primary Care Provider: Maia Oliva Other Providers: Lucas Magaña; Marietta Garcia; José Manuel Hudson; Diaz Seay; Flakito Oliva; Daren Hammonds; Nicolas Núñez; Meera Nolasco; Meri Appiah; Amanda Chandler; Marietta Tovar; Alfredo Fry; Salomon Ordoñez; Norma Wilks; Sasha Mcallister; Carla Josue; Jez Velázquez; Kerwin Cartwright; Isa De La Torre; Tatyana Courtney; Adriel Lawrence Other Interventions: Discharge Summary Assessment (RN) Last Done: 12/04/24 12:38
--- NOTE | 2024-12-22 12:56 | Operative Report ---
Post Operative Report DICTATED BY:Meri Appiah D.O. DATE OF PROCEDURE: 12/03/2024 PREOPERATIVE DIAGNOSES: TBS POSTOPERATIVE DIAGNOSIS: Same PROCEDURE: A dual-chamber rate responsive permanent pacemaker, along with peripheral venogram under fluoroscopic guidance followed by external synchronized cardioversion. SURGEON: Meri Appiah DO ASSISTANTS: None. ANESTHESIA: Monitored conscious sedation administered under my supervision by Lamont Perkins. Start time 15:21, end time 16:09, a total of 5 mg of Versed and 125 mcg of fentanyl. INTRAVENOUS FLUIDS: 0 mL. CONTRAST: 10 mL. ANTIBIOTICS: Clindamycin ADDITIONAL MEDICATIONS: None BLOOD LOSS: 50 mL. URINE OUTPUT: Not applicable. SPECIMENS: None. FINDINGS: See below. DRAINS: None. COMPLICATIONS: None. CONDITION: Stable. INDICATIONS: This is a 74-year-old gentleman who has a past medical history CAD s/p possible remote stent to LAD in 2012, HLD intolerant to statins, HTN, EVELIA b/l, pAF, Chronic back pain. Pt was admitted due to AF with RVR and worsening TBS; he was recommended a pacemaker along with cardioversion prior to hospital discharge. CONSENT: Consent was obtained prior to the patient going into the electrophysiology lab. The patient was informed of the risks, benefits, and alternatives to the procedure. Risks include, but not limited to, sudden cardiac , cardiac arrhythmias, cerebrovascular accident, myocardial infarction, injury to his blood vessels, chamber of the heart and lung, bleeding and infection. The patient understood these risks and agreed to the procedure as planned. Informed consent was obtained. He also has not missed any eliquis in the past month. DESCRIPTION OF PROCEDURE: The patient was brought into electrophysiology lab in a fasting state. He was connected to continuous cardiac monitoring. A timeout was performed to ensure the patient's identity and procedure correctly. He was prepped and draped in the left infraclavicular space in normal surgical standard fashion. Monitored conscious sedation was given throughout the procedure for the patient's comfort level. [place] precautions were maintained throughout the procedure. Prophylactic antibiotics were given prior to incision. A 20 mL of 1% lidocaine and bupivacaine mixture were given in the left deltopectoral groove. An incision was made in the left deltopectoral groove. Blunt dissection was performed down to the pectoralis muscle. Then, using blunt dissection over the pectoralis muscle within the pectoral fascia, a pacemaker pocket was created. Then, a peripheral venogram was performed to identify the axillary vein. Venous axillary access was obtained through a needlestick witho ut any problems. A guidewire was inserted without any resistance. A 6-Polish sheath was inserted over the guidewire without any resistance. Dilator was removed and a second guidewire was inserted through the sheath to allow for retained venous access. Then a 9 Polish sheath was inserted over one of the guidewires. The guidewire and dilator were removed. Then, the [employer] 3D large sheath was inserted through the 9-Polish sheath over a Glidewire into the right ventricle. The Glidewire and dilator were removed. Then, the left bundle lead was advanced through the sheath and intracardiac electrogram His bundle recordings were performed when the camera was in ANTUNEZ 10. Once I had an idea where the His bundle was-as I could not see a clear HIS. I then moved the camera to ANTUNEZ 30 and marked where I estimated the His bundle was on my fluoroscopy screen. I came down about 2 cm from this in a line that would extend out to the apex and then started coming on pacing. Once I found an area where I had a nice W formed pace complex in my lead V1, I then moved the camera to SLOVAK 30. Then the helix was extended into the septum. Then the helix locking tool was placed. Then the lead was screwed further into the septum while pacing by giving slow clockwise turns. The paced complex changed to a nice R' in V1 and the pacing stim to peak QRS in V6 was good. I did need to reposition the lead a few times before it advanced nicely. Of note I did have to reposition it a couple of times. I then gave contrast through the sheath to see how far the lead was into the septum and then I slit the [employer] 3D large sheath under fluoroscopic guidance and left the 9-Polish sheath in while I positioned the right atrial lead. A 6-Polish sheath was inserted over the retained guidewire, the guidewire and dilator removed. The right atrial lead was then advanced into right atrium and positioned into right atrial appendage under fluoroscopic guidance. There was adequate pacing and sensing thresholds and no diaphragmatic stimulation with high output pacing. The 6-Polish sheath was peeled away and the lead was fixated to the pectoralis muscle using 0 silk suture. The 9-Polish sheath around the left bundle lead was peeled away and the lead was fixated to pectoralis muscle using 0 silk suture. The pocket was flushed with copious amounts of vancomycin and saline wash and inspected for hemostasis. The leads were then attached to the pulse generator making sure the pins were in appropriate position, passed set screws, and set screws were all tightened. Pulse generator was then placed in the pocket, making sure the leads were lying flat beneath the device. The incision was closed in a 3-layer fashion using 2-0 Vicryl interrupted suture, followed by 3-0 Vicryl interrupted suture, followed by 4-0 Monocryl running stitch. Then a primaseal dressing was placed Then an external synchronized cardioversion was performed at 360J which converted the patient to sinus with AP-VS. EQUIPMENT: 1. Pulse generator is a [employer] MRI Model Number [id number] SN: [id number] 2. Right atrial lead, [place] [employer] UlitPace [id number] SN: [id number] 3. Left bundle lead, [place] [employer] UltiPace [id number] SN: [id number] INTRAPROCEDURAL FINDINGS: 1. Right atrial lead, Fib waves 2.2 millivolts, impedance 504 ohms, threshold N/A pt in AF 2. Left bundle lead, R waves 6.7 millivolts, impedance 610 ohms, threshold 1.1 volts at 0.5 milliseconds. FINAL MEASUREMENTS THROUGH THE DEVICE: 1. Right atrial lead, P waves 3 millivolts, impedance 600 ohms, threshold 1.0 volt at 0.4 milliseconds. 2. Left bundle lead, R waves 5 millivolts, impedance 790 ohms, threshold 0.55 volts at 0.4 milliseconds. FINAL PARAMETERS: DDDR 60/120, right atrial amplitude 3.5 volts, pulse width 0.4 milliseconds, sensitivity 0.3 millivolts. Left bundle lead amplitude 3.5 volts, pulse width 0.4 milliseconds, sensitivity 2 millivolts. IMPRESSION: Successful dual chamber rate responsive permanent pacemaker under fluoroscopic guidance along with peripheral venogram synchronized external cardioversion, all under fluoroscopic guidance secondary to TBS PLAN: Monitor the patient post-procedure. A 12-lead ECG, chest x-ray. He is not to lift the left elbow or left shoulder for 1 month. He cannot lift more than 10 pounds with the left arm for 2 weeks. He is to keep the dressing on and dry until his wound check in 10 days. He is to not miss any eliquis in the next month. EP f/u in 1 month
== END 2024-12-04 13:15 | disposition home or self-care (01) | DRG 243 ==
LOC: ED 16:38 → 2E 20:45 → SUATTDRO 20:45 → 2E 23:09